=== PATIENT | female | born 1930 | race Caucasian/White ===

== ENCOUNTER 2018-04-14 12:53 | Emergency (ER) | payer MEDICARE ==
--- NOTE | 2018-04-14 14:03 | RAD ---
INDICATION: Right knee pain after a fall COMPARISON: None TECHNIQUE: 4 view radiograph of the right knee. FINDINGS: Extending medially at the superior margin of the medial femoral condyle slightly more proximally to the lateral cortical margin of the right supracondylar femur, there is a lucent line. This lucent line is seen on the lateral view knee radiograph just above the anterior portion of the femoral prosthesis. There is evidence of a healed fracture at the proximal right fibular metaphysis. The visualized bones are otherwise grossly intact. There is mild calcified atherosclerosis of the superficial femoral artery. IMPRESSION: Nondisplaced periprosthetic at the distal right femur just above the anterior portion of the femoral knee prosthesis.
[2018-04-14] MEDS ORDERED: Ibuprofen TAB* 600 MG PO ONE (15:57)
[2018-04-14 16:36] VITALS: BP 143/77
--- NOTE | 2018-04-17 10:44 | ED ---
Edward Roberto Angela, scribed for Johnson Bernard MD on 04/14/18 at 1309 . Lower Extremity - HPI Summary HPI Summary: This pt is an 87 y/o female presenting to [facility] via EMS c/o right knee pain s/p fall today. Pt reports she was walking down a sidewalk when she tripped over a portion that was raised. She does not know if she landed on her right knee. Denies head strike or LOC. Pt denies any other injuries, headache, abd pain, chest pain, neck pain, back pain. PMHx includes right knee replacement (about 3 years ago). Pt is unable to recall who did her knee replacement. - History of Current Complaint Chief Complaint: EDExtremityLower Stated Complaint: RT KNEE PAIN Time Seen by Provider: 04/14/18 13:01 Hx Obtained From: Patient Mechanism Of Injury: Fall From A Standing Position Onset of Pain: Immediate Onset/Duration: Minutes Severity Currently: Moderate Pain Intensity: 1 Pain Scale Used: 0-10 Numeric Timing: Constant, Lasting Days Location: Is Discrete @ - right knee Associated Signs And Symptoms: Positive: Knee Pain. Negative: Redness, Bruising , Weakness, Abdominal Pain Aggravating Factor(s): Movement Alleviating Factor(s): Rest Able to Bear Weight: No - Allergies/Home Medications Allergies/Adverse Reactions: Allergies Allergy/AdvReac Type Severity Reaction Status Date / Time No Known Allergies Allergy Verified 08/08/15 13:25 PMH/Surg Hx/FS Hx/Imm Hx Endocrine/Hematology History: Denies: Hx Diabetes Respiratory History: Reports: Hx Asthma Neurological History: Reports: Hx CVA - Surgical History Surgery Procedure, Year, and Place: TOTAL RT KNEE, TOTAL RT HIP Infectious Disease History: No Infectious Disease History: Denies: Traveled Outside the US in Last 30 Days - Family History Known Family History: Positive: Cardiac Disease - [place], Diabetes Family History: Cancer - Social History Alcohol Use: Rare Substance Use Type: Reports: None Smoking Status (MU): Never Smoked Tobacco Review of Systems Negative: Fever, Chills Eyes: Negative Negative: Chest Pain Negative: Shortness Of Breath Negative: Abdominal Pain Musculoskeletal: Other - right knee pain Negative: Other - neck pain, back pain Negative: Headache All Other Systems Reviewed And Are Negative: Yes Physical Exam - Summary Physical Exam Summary: VITAL SIGNS: Reviewed. GENERAL: Patient is a well-developed and nourished female who is lying comfortable in the stretcher. Patient is not in any acute respiratory distress. HEAD AND FACE: No signs of trauma. No ecchymosis, hematomas or skull depressions. No sinus tenderness. EYES: PERRLA, EOMI x 2, No injected conjunctiva, no nystagmus. EARS: Hearing grossly intact. Ear canals and tympanic membranes are within normal limits. MOUTH: Oropharynx within normal limits. NECK: Supple, trachea is midline, no adenopathy, no JVD, no carotid bruit, no c- spine tenderness, neck with full ROM. CHEST: Symmetric, no tenderness at palpation LUNGS: Clear to auscultation bilaterally. No wheezing or crackles. CVS: Regular rate and rhythm, S1 and S2 present, no murmurs or gallops appreciated. ABDOMEN: Soft, non-tender. No signs of distention. No rebound no guarding, and no masses palpated. Bowel sounds are normal. EXTREMITIES: no cyanosis or clubbing. RLE: Decreased ROM of right knee secondary to pain. No deformity. No ecchymosis. NEURO: Alert and oriented x 3. No acute neurological deficits. Speech is normal and follows commands. SKIN: Dry and warm. Abrasion on top of the right knee. Triage Information Reviewed: Yes Vital Signs On Initial Exam: Initial Vitals Temp Pulse Resp BP Pulse Ox 97.9 F 62 18 155/87 95 04/14/18 12:58 04/14/18 12:58 04/14/18 12:58 04/14/18 12:58 04/14/18 12:58 Vital Signs Reviewed: Yes Diagnostics - Vital Signs Vital Signs Temp Pulse Resp BP Pulse Ox 04/14/18 12:58 97.9 F 62 18 155/87 95 - Laboratory Lab Statement: Any lab studies that have been ordered have been reviewed, and results considered in the medical decision making process. - Radiology Right knee XR Xray Interpretation: Positive (See Comments) - IMPRESSION: Nondisplaced periprosthetic at the distal right femur just above the anterior portion of the femoral knee prosthesis. Dr. Bernadr has reviewed this radiology report. Radiology Interpretation Completed By: Radiologist Re-Evaluation - Re-Evaluation First Eval Re-Evaluation Time: 15:56 Comment: I reviewed the XR results with the pt. She will be discharged home. Lower Extremity Course/Dx - Course Assessment/Plan: Pt is an 87 y/o female, with hx of R knee replacement, who presents with right knee pain s/p fall today. Pt reports she was walking down a sidewalk when she tripped over a portion that was raised. She does not know if she landed on her right knee. Denies head strike or LOC. Right knee XR shows nondisplaced periprosthetic at the distal right femur just above the anterior portion of the femoral knee prosthesis. There is no fracture or dislocation on chest XR. Pt was given ibuprofen for the pain and she feels better. Pt was able to ambulate in the ED. Because of the slight swelling I decided to place pt on a knee immobilizer. She will be discharged home with follow up from orthopedics. I discussed all the findings and test results with the patient. All questions were answered to patient satisfaction. There were no further complaints or concerns. She is instructed to return to the ED for any worsening or new symptoms. Pt is hemodynamically stable, alert and oriented x3. - Diagnoses Provider Diagnoses: Knee pain Discharge - Sign-Out/Discharge Documenting (check all that apply): Discharge/Admit/Transfer - Discharge - Discharge Plan Condition: Stable Disposition: HOME Patient Education Materials: Knee Pain (ED) Referrals: Lj Adam MD [Medical Doctor] - 3 Days Ira Ortiz MD [Medical Doctor] - Additional Instructions: Please follow up with Dr. Adam, orthopedist. RETURN TO THE ED FOR ANY NEW OR WORSENING SYMPTOMS. The documentation as recorded by the Edward spain Angela accurately reflects the service I personally performed and the decisions made by , Johnson Bernard MD.
== END 2018-04-14 16:35 | disposition home or self-care (01) ==
LOC: ED 12:53
DX: M25.561 Pain in right knee (principal); W01.0XXA Fall on same level from slipping, tripping and stumbling without subsequent striking against object, initial encounter; Y93.01 Activity, walking, marching and hiking; Y92.480 Sidewalk as the place of occurrence of the external cause; Z96.651 Presence of right artificial knee joint; N39.0 Urinary tract infection, site not specified; R55 Syncope and collapse; Z79.82 Long term (current) use of aspirin
CPT/HCPCS: 99282; A9270-GY

== ENCOUNTER 2018-04-14 21:41 | Emergency (ER) | payer MEDICARE ==
[2018-04-14] MEDS ORDERED: NS 0.9% 1000 ML* 1,000 ML IV ONE (23:30)
[2018-04-15 00:16] LABS: ABS Basophils 0 10^3/ul (0-0.2); ABS Eosinophils 0.1 10^3/ul (0-0.6); ABS Lymphocytes 0.6 10^3/ul (1.0-4.8); ABS Monocytes 0.5 10^3/ul (0-0.8); ABS Neutrophils 6.4 10^3/ul (1.5-7.7); ABS Nucleated RBC 0 10^3/ul; Eosinophil % 1.9 % (0-6); Hematocrit 38 % (35-47); Hemoglobin 12.7 g/dl (12.0-16.0); Lymphocyte % 7.3 % (25-47); Mean Corpuscular HGB Conc 33 g/dl (31-36); Mean Corpuscular Hemoglobin 30 pg (27-31); Mean Corpuscular Volume 91 fL (80-97); Mean Platelet Volume 8.4 um3 (7.4-10.4); Nucleated Red Blood Cells % 0; Platelet Count 180 10^3/ul (150-450); Red Blood Count 4.18 10^6/ul (4.00-5.40); Red Cell Distribution Width 15 % (10.5-15); White Blood Count 7.7 10^3/ul (3.5-10.8)
[2018-04-15 00:32] LABS: INR 0.91 (0.77-1.02)
[2018-04-15 00:53] LABS: Urine Appearance Cloudy; Urine Blood Negative (Negative); Urine Color Yellow; Urine Ketones Negative (Negative); Urine Protein Negative (Negative); Urine Specific Gravity 1.015 (1.010-1.030); Urine Urobilinogen Negative (Negative)
[2018-04-15] MEDS ORDERED: Levofloxacin 500 MG IVPREMIX(* 500 MG/100 ML BAG IVPB ONE (01:06)
[2018-04-15] MEDS ORDERED: Levofloxacin TAB* 250 MG PO ONE (01:14)
--- NOTE | 2018-04-15 01:25 | ED ---
Mynor Roberto Gabriel, scribed for Anthony Osei MD on 04/14/18 at 2343 . Syncope/Near Syncope - HPI Summary HPI Summary: This patient is a 87 year old F BIBA to [facility] accompanied by her mother in law s /p near syncopal episode that occurred at 2100 tonight. The pt was having a BM when she became faint and diaphoretic. The daughter in law saw during the episode. She states the pt was responding but did not appear fully conscious. The patient rates the pain 3/10 in severity. Patient reports PALACIOS, inability to move legs, decreased liquid intake, and diaphoresis. The episode lasted about 20 minutes. Pt was seen earlier today for a fall w/ right knee injury. - History Of Current Complaint Chief Complaint: EDGeneral Time Seen by Provider: 04/14/18 23:10 Hx Obtained From: Patient, Family/Cable Testers Helper Onset/Duration: Still Present Timing: Constant Context: Witnessed Activity At Onset: At Rest Associated Head Trauma: No Alleviating Factor(s): Spontaneous Resolution Associated Signs And Symptoms: Diaphoresis - Allergies/Home Medications Allergies/Adverse Reactions: Allergies Allergy/AdvReac Type Severity Reaction Status Date / Time No Known Allergies Allergy Verified 08/08/15 13:25 Home Medications: Home Medications Ascorbic Acid TAB* [Vitamin C TAB*] 500 mg PO DAILY 04/14/18 [History Confirmed 04/14/18] Aspirin TAB* [Aspirin 325 MG TAB*] 325 mg PO QPM 04/14/18 [History Confirmed 10/20] Calcium Carbonate [Calcium] 500 mg PO QAM 04/14/18 [History Confirmed 04/14/18] Magnesium Oxide [Magnesium] 500 mg PO QPM 04/14/18 [History Confirmed 04/14/18] Methylsulfonylmethane [MSM] 1,000 mg PO DAILY 04/14/18 [History Confirmed ] [place]-3 Fatty Acids (Nf) [Fish Oil (NF)] 1,000 mg PO QAM 04/14/18 [History Confirmed 04/14/18] PMH/Surg Hx/FS Hx/Imm Hx History: Denies: Hx Benign Prostatic Hyperplasia, Hx Chronic Renal Failure Neurological History: Denies: Hx CVP Psychiatric History: Denies: Hx Attention Deficit Hyperactivity Disorder - Surgical History Surgery Procedure, Year, and Place: TOTAL RT KNEE, TOTAL RT HIP Infectious Disease History: No Infectious Disease History: Denies: Traveled Outside the [place] in Last 30 Days - Family History Known Family History: Negative: Respiratory Disease, Seizure Disorder, Blood Disorder - Social History Alcohol Use: Rare Substance Use Type: Reports: None Smoking Status (MU): Never Smoked Tobacco Review of Systems Positive: Skin Diaphoresis, Other - decreased liquid intake Positive: Other - inability to move legs Neurological: Negative - LOC Positive: Headache, Syncope - near All Other Systems Reviewed And Are Negative: Yes Physical Exam - Summary Physical Exam Summary: VITAL SIGNS: Reviewed. GENERAL: Patient is a well-developed and nourished female who is lying comfortable in the stretcher. Patient is not in any acute respiratory distress. HEAD AND FACE: No signs of trauma. No ecchymosis, hematomas or skull depressions. No sinus tenderness. EYES: PERRLA, EOMI x 2, No injected conjunctiva, no nystagmus. EARS: Hearing grossly intact. Ear canals and tympanic membranes are within normal limits. MOUTH: Oropharynx within normal limits. NECK: Supple, trachea is midline, no adenopathy, no JVD, no carotid bruit, no c- spine tenderness, neck with full ROM. CHEST: Symmetric, no tenderness at palpation LUNGS: Clear to auscultation bilaterally. No wheezing or crackles. CVS: Regular rate and rhythm, S1 and S2 present, no murmurs or gallops appreciated. ABDOMEN: Soft, non-tender. No signs of distention. No rebound no guarding, and no masses palpated. Bowel sounds are normal. EXTREMITIES: FROM in all major joints no cyanosis or clubbing. Bilateral trace edema NEURO: Alert and oriented x 3. No acute neurological deficits. Speech is normal and follows commands. SKIN: Dry and warm Triage Information Reviewed: Yes Vital Signs On Initial Exam: Initial Vitals Temp Pulse Resp BP Pulse Ox 97.4 F 56 17 150/66 98 04/14/18 22:03 04/14/18 22:03 04/14/18 22:03 04/14/18 22:03 04/14/18 22:03 Vital Signs Reviewed: Yes Diagnostics - Vital Signs Vital Signs Temp Pulse Resp BP Pulse Ox 04/14/18 23:15 57 16 138/71 97 04/14/18 22:03 97.4 F 56 17 150/66 98 - Laboratory Result Diagrams: 04/15/18 00:07 04/15/18 00:07 Lab Statement: Any lab studies that have been ordered have been reviewed, and results considered in the medical decision making process. - CT CT Head CT Interpretation Completed By: Radiologist - involutional changes. Chronic micro vascular changes in the cerebral white matter. 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 No obvious acute infarct. No hemorrhage. No mass. Osseous structures intact. ED physician has reviewed this radiology report. - EKG 23:32 Cardiac Rate: NL EKG Rhythm: Sinus Rhythm - at 55 BPM EKG Interpretation: Normal axis. Normal interval. No ischemic changes Re-Evaluation - Re-Evaluation First Eval Re-Evaluation Time: 01:16 Change: Improved Comment: The patient is feeling better and I informed her that she has a UTI. I informed her and the daughter that it could be vasovagal episode. They both feel comfortable going home and will follow up from her PCP. Course/Dx Assessment/Plan: This patient is a 87 year old F BIBA to [facility] accompanied by her mother in law s/p near syncopal episode that occurred at 2100 tonight. The pt was having a BM when she became faint and diaphoretic. The daughter in law saw during the episode. She states the pt was responding but did not appear fully conscious. The patient rates the pain 3/10 in severity. Patient reports PALACIOS , inability to move legs, decreased liquid intake, and diaphoresis. The episode lasted about 20 minutes. Pt was seen earlier today for a fall w/ right knee injury. An EKG reveals Normal axis. Normal interval. No ischemic changes. CT Head reveals, per radiologist, involutional changes. Chronic micro vascular changes in the cerebral white matter. 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 No obvious acute infarct. No hemorrhage. No mass. Osseous structures intact. Blood work obtained, UA positive for UTI. In the ED course the patient was given levaquin and IV fluids. The patient most likely had a vasovagal episode secondary to knee pain. Dx UTI and vasovagal. Patient will be discharged with prescription for levaquin and follow up from PCP. The patient is agreeable with this plan. - Diagnoses Provider Diagnoses: UTI (urinary tract infection), Vasovagal episode Discharge - Sign-Out/Discharge Documenting (check all that apply): Discharge/Admit/Transfer - Discharge Plan Condition: Stable Disposition: HOME Prescriptions: Levofloxacin TAB* [Levaquin TAB*] 250 mg PO DAILY #7 tab Patient Education Materials: Urinary Tract Infection in Women (DC) Referrals: Jeni Justice OFFICE CLERK [Primary Care Provider] - 3 Days Additional Instructions: RETURN TO THE ER FOR ANY NEW OR WORSENING SYMPTOMS The documentation as recorded by the Mynor spain Gabriel accurately reflects the service I personally performed and the decisions made by , Anthony Osei MD.
[2018-04-15 01:37] VITALS: BP 163/88
--- NOTE | 2018-04-15 07:53 | RAD ---
INDICATION: Dizziness COMPARISON: Most recent CT of the brain is dated December 17, 2015 TECHNIQUE: Contiguous axial sections of the brain were obtained from the skull base to the vertex without contrast. FINDINGS: The ventricles, cisterns and sulci exhibit stable age-related involutional changes.. There is mild to moderate periventricular and subcortical white matter hypoattenuation most consistent with chronic microvascular disease. There is a stable focal infarct at the right thalamus. Otherwise the tariq-white matter differentiation is adequately maintained and there is no sulcal effacement. No significant focal abnormality or mass effect is present. There is no evidence for intracranial hemorrhage. No significant focal osseous abnormality is present. The visualized portion of the paranasal sinuses appear clear. The mastoid air cells are well aerated bilaterally. IMPRESSION: Stable chronic findings as described above without CT evidence of acute intracranial abnormality.
== END 2018-04-15 01:36 | disposition home or self-care (01) ==
LOC: ED 21:41
DX: N39.0 Urinary tract infection, site not specified (principal); R55 Syncope and collapse; Z79.82 Long term (current) use of aspirin
CPT/HCPCS: 36415; 70450; 80053; 81003; 81015; 83605; 83735; 84443; 84484; 85025; 85610; 85730; 87086; 93005; 96360; 96374; 99282; 99284; A9270-GY

== ENCOUNTER 2018-05-25 11:34 | Observation (INO) | payer MEDICARE ==
[2018-05-25] MEDS ORDERED: NS 0.9% 1000 ML* 1,000 ML IV ONE (11:52)
--- NOTE | 2018-05-25 12:06 | ED ---
Neurological HPI - HPI Summary HPI Summary: This is judit Ghotra documenting for attending Johnson Bernard MD. This patient is an 87 year old F BIBA to ED with a chief complaint of LOC since [facility]. Per EMS patient was at physical therapy when she "passed out", she was drooling and unresponsive in her wheel chair for about a minute. When she came around, her speech was slurred and she was drowzy. Per staff her B/P was 80/40. The patient rates the pain 0/10 in severity. Symptoms aggravated by nothing. Symptoms alleviated by nothing. Patient denies palpitations, PALACIOS, SOB, and CP before and after passing out. - History of Current Complaint Chief Complaint: EDSyncope Stated Complaint: SYNCOPE Time Seen by Provider: 05/25/18 11:51 Hx Obtained From: Patient Onset/Duration: Sudden Onset, Started hours ago Timing: Sudden Onset Current Severity: None - 0/10 Pain Intensity: 0 Pain Scale Used: 0-10 Numeric Character: Other: - LOC Aggravating: Nothing Alleviating: Nothing Associated Signs and Symptoms: Positive: Loss of Consciousness - drooling and unresponsive during LOC, slurred speech and drowsiness s/p coming to, low BP; Patient denies palpitations, PALACIOS, SOB, and CP before and after passing out. - Additional Pertinent History Primary Care Physician: [id number] - Allergy/Home Medications Allergies/Adverse Reactions: Allergies Allergy/AdvReac Type Severity Reaction Status Date / Time No Known Allergies Allergy Verified 08/08/15 13:25 Home Medications: Home Medications Acetaminophen TAB* [Tylenol TAB*] 650 mg PO Q4H PRN 05/25/18 [History Confirmed 05/25/18] Ascorbic Acid TAB* [Vitamin C TAB*] 500 mg PO DAILY 05/25/18 [History Confirmed 05/25/18] Aspirin TAB* [Aspirin 325 MG TAB*] 325 mg PO DAILY 05/25/18 [History Confirmed 05/25/18] Calcium Carbonate TAB* 500 mg PO QPM 05/25/18 [History Confirmed 05/25/18] Docusate CAP* [Colace Cap*] 100 mg PO BID 05/25/18 [History Confirmed 05/25/18] Ferrous Sulfate TAB* 325 mg PO DAILY 05/25/18 [History Confirmed 05/25/18] Magnesium Oxide TAB* [MagOx 400 TAB*] 400 mg PO QPM 05/25/18 [History Confirmed 05/25/18] [place]-3 Fatty Acids (Nf) [Fish Oil (NF)] 1,000 mg PO DAILY 05/25/18 [History Confirmed 05/25/18] Warfarin TAB(*) [Coumadin TAB(*)] 3.5 mg PO QPM 05/25/18 [History Confirmed ] oxyCODONE TAB* [Roxycodone TAB 5 mg*] 5 mg PO Q4H PRN 05/25/18 [History Confirmed 05/25/18] PMH/Surg Hx/FS Hx/Imm Hx Respiratory History: Reports: Hx Asthma GI History: Reports: Hx Gastroesophageal Reflux Disease History: Denies: Hx Benign Prostatic Hyperplasia, Hx Chronic Renal Failure Musculoskeletal History: Reports: Hx Arthritis, Hx Orthopedic Injury - R knee, Other Musculoskeletal History - R TKR Sensory History: Reports: Hx Contacts or Glasses Denies: Hx Hearing Aid Opthamlomology History: Reports: Hx Contacts or Glasses Psychiatric History: Denies: Hx Attention Deficit Hyperactivity Disorder - Surgical History Surgery Procedure, Year, and Place: TOTAL RT KNEE, 2002, [facility]. TOTAL RT HIP, [place], [place], unsure of year Hx Anesthesia Reactions: No - Immunization History Immunizations Up to Date: Yes Infectious Disease History: No Infectious Disease History: Denies: Traveled Outside the US in Last 30 Days - Family History Known Family History: Negative: Respiratory Disease, Seizure Disorder, Blood Disorder - Social History Alcohol Use: None Substance Use Type: Reports: None Smoking Status (MU): Never Smoked Tobacco Review of Systems Positive: Other - low BP. Negative: Palpitations - denies palpitations before and after passing out, Chest Pain - denies CP before and after passing out Negative: Shortness Of Breath - denies SOB before and after passing out Neurological: Other - drooling and unresponsive during LOC, slurred speech and drowsiness s/p coming to Negative: Headache - denies PALACIOS before and after passing out All Other Systems Reviewed And Are Negative: Yes Physical Exam - Summary Physical Exam Summary: VITAL SIGNS: Reviewed. GENERAL: Patient is a well-developed and nourished FEMALE who is lying comfortable in the stretcher. Patient is not in any acute respiratory distress. HEAD AND FACE: No signs of trauma. No ecchymosis, hematomas or skull depressions. No sinus tenderness. EYES: PERRLA, EOMI x 2, No injected conjunctiva, no nystagmus. EARS: Hearing grossly intact. Ear canals and tympanic membranes are within normal limits. MOUTH: Oropharynx within normal limits. NECK: Supple, trachea is midline, no adenopathy, no JVD, no carotid bruit, no c- spine tenderness, neck with full ROM. CHEST: Symmetric, no tenderness at palpation LUNGS: Clear to auscultation bilaterally. No wheezing or crackles. CVS: Regular rate and rhythm, S1 and S2 present, no murmurs or gallops appreciated. ABDOMEN: Soft, non-tender. No signs of distention. No rebound no guarding, and no masses palpated. Bowel sounds are normal. EXTREMITIES: no edema, no cyanosis or clubbing. Boot on R leg. She has a knee replacement. NEURO: Alert and oriented x 3. No acute neurological deficits. Speech is normal and follows commands. SKIN: Dry and warm GCS 15 Triage Information Reviewed: Yes Vital Signs On Initial Exam: Initial Vitals Temp Pulse Resp BP Pulse Ox 98.4 F 68 17 147/74 95 05/25/18 11:38 05/25/18 11:38 05/25/18 11:38 05/25/18 11:38 05/25/18 11:38 Vital Signs Reviewed: Yes Diagnostics - Vital Signs Vital Signs Temp Pulse Resp BP Pulse Ox 05/25/18 11:38 98.4 F 68 17 147/74 95 - Laboratory Result Diagrams: 05/25/18 12:47 05/25/18 12:47 Lab Statement: Any lab studies that have been ordered have been reviewed, and results considered in the medical decision making process. - Radiology CXR Radiology Interpretation Completed By: Radiologist - NO ACTIVE CARDIOPULMONARY DISEASE. ED physician has reviewed this radiology report. - CT Brain CT CT Interpretation Completed By: Radiologist - 1. NO ACUTE INTRACRANIAL PATHOLOGY. 2. CHRONIC SMALL VESSEL ISCHEMIC CHANGE. 3. 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 ED physician has reviewed this radiology report. - EKG 1220 Cardiac Rate: NL - 67 BPM EKG Rhythm: Sinus Rhythm EKG Interpretation: no ST elevations, normal axis EKG Comparison: No Significant Change - Similar to EKG done on 04/18/18 Course/Dx - Course Assessment/Plan: Patient is an 87-year-old female who presents to the emergency department after [facility] with a chief complaint of a syncopal episode with positive loss of consciousness and hypotension. The patient doesnt remember any of the episodes but she denies any chest patients over the palpitations headache or dizziness before she had a syncopal episode or after she had a syncopal episode. She only remembers that she was sitting in the wheelchair waiting to go to rehabilitation. At this time the patient has no complaints. Test results without any significant abnormality. Head CT impression: No acute intracranial pathology. Chronic small vessel changes. There is pain intervally involvement of the right parietal encephalomalacia consistent with a remote infarct. Chest x-ray impression: No acute pathology. At this point I discussed the case with Dr. Mike from neurology and he will consult for the patient. I also discussed the case with Dr. Kang will be admitted the patient to his services for further workup and management. 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 At this point the patients hematocrit stable alert and oriented 3. - Differential Dx Differential Diagnoses Neuro: Positive: Other - syncope, evolutional CVA - Diagnoses Provider Diagnoses: Syncope, CVA (cerebral vascular accident) - Physician Notifications Discussed Care Of Patient With: Kush Mike Time Discussed With Above Provider: 13:45 Instructed by Provider To: Other - Consulted Dr. Mike about the patient's case and he said he will consult the patient in the ED. Consulted Dr. Kang at 1354 who accepts the patient for admission. Discharge - Sign-Out/Discharge Documenting (check all that apply): Patient Departure - Discharge Plan Condition: Stable Disposition: ADMITTED TO [facility]
--- NOTE | 2018-05-25 12:36 | RAD ---
HISTORY: Syncope COMPARISONS: April 14, 2013 TECHNIQUE: Multiple contiguous axial CT scans were obtained of the head without intravenous contrast. FINDINGS: HEMORRHAGE/INFARCT: There is no hemorrhage or acute infarct. MASSES/SHIFT: There is no mass or shift. EXTRA-AXIAL SPACES: There are no extra-axial fluid collections. SULCI AND VENTRICLES: There is diffuse and proportional enlargement of the sulci and ventricles. CEREBRUM: There is hypoattenuation of the periventricular and subcortical white matter. There is right parietal encephalomalacia consistent with remote infarct that has developed compared to the previous examination. BRAINSTEM: There are no focal parenchymal abnormalities. CEREBELLUM: There are no focal parenchymal abnormalities. VESSELS: The vessels are grossly normal. PARANASAL SINUSES: The paranasal sinuses are clear. ORBITS: The orbits are unremarkable. BONES AND SOFT TISSUE: No bone or soft tissue abnormalities are noted. OTHER: None IMPRESSION: 1. NO ACUTE INTRACRANIAL PATHOLOGY. 2. CHRONIC SMALL VESSEL ISCHEMIC CHANGE. 3. 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
--- NOTE | 2018-05-25 12:52 | RAD ---
HISTORY: Syncope COMPARISONS: April 18, 2018 VIEWS: 1: frontal portable view of the chest at 12:34 PM FINDINGS: LINES AND TUBES: None. CARDIOMEDIASTINAL SILHOUETTE: The aorta is tortuous. The cardiomediastinal silhouette is otherwise normal for portable technique. PLEURA: The costophrenic angles are sharp. No pleural abnormalities are noted. LUNG PARENCHYMA: The lungs are clear. ABDOMEN: The upper abdomen is clear. There is no subphrenic gas. BONES AND SOFT TISSUES: No bone or soft tissue abnormalities are noted. IMPRESSION: NO ACTIVE CARDIOPULMONARY DISEASE.
[2018-05-25 13:02] LABS: ABS Basophils 0 10^3/ul (0-0.2); ABS Eosinophils 0.4 10^3/ul (0-0.6); ABS Lymphocytes 0.7 10^3/ul (1.0-4.8); ABS Monocytes 0.8 10^3/ul (0-0.8); ABS Neutrophils 6.7 10^3/ul (1.5-7.7); ABS Nucleated RBC 0 10^3/ul; Eosinophil % 4.5 % (0-6); Hematocrit 37 % (35-47); Lymphocyte % 8.4 % (25-47); Mean Corpuscular HGB Conc 33 g/dl (31-36); Mean Corpuscular Hemoglobin 29 pg (27-31); Mean Corpuscular Volume 89 fL (80-97); Mean Platelet Volume 8.1 um3 (7.4-10.4); Nucleated Red Blood Cells % 0; Platelet Count 239 10^3/ul (150-450); Red Blood Count 4.11 10^6/ul (4.00-5.40); Red Cell Distribution Width 15 % (10.5-15); White Blood Count 8.6 10^3/ul (3.5-10.8)
[2018-05-25 13:23] LABS: EGFR Non-African American 61.6 (>60)
[2018-05-25 14:02] LABS: Urine Appearance Cloudy; Urine Blood Negative (Negative); Urine Color Yellow; Urine Ketones Negative (Negative); Urine Protein Negative (Negative); Urine Specific Gravity 1.016 (1.010-1.030); Urine Urobilinogen Negative (Negative)
[2018-05-25] MEDS ORDERED: oxyCODONE TAB* 5 MG TAB PO PRN (14:57)
[2018-05-25] MEDS ORDERED: Acetaminophen TAB* 325 MG PO PRN (14:57)
[2018-05-25] MEDS ORDERED: Warfarin TAB(*) 2.5 MG PO SCH (17:00)
[2018-05-25] MEDS ORDERED: Warfarin TAB(*) 1 MG PO SCH (17:00)
[2018-05-25 17:36] LABS: INR 3.07 (0.77-1.02)
[2018-05-25] MEDS ORDERED: Calcium Carbonate TAB* 1250 MG (CALCIUM 500 MG) PO SCH ×2 (18:00→19:00)
[2018-05-25] MEDS ORDERED: Warfarin TAB(*) 3 MG PO SCH ×2 (18:00→18:30)
[2018-05-25] MEDS: Magnesium Oxide TAB* 400 MG PO SCH (18:54)
[2018-05-25] MEDS: Calcium Carbonate TAB* 1250 MG (CALCIUM 500 MG) PO SCH (18:55)
[2018-05-25] MEDS ORDERED: Calcium Carbonate CHEW TAB* 500 MG (TUMS) PO SCH (19:00)
--- NOTE | 2018-05-25 19:41 | RAD ---
INDICATION: Slurred speech, TIA. COMPARISON: There are no prior studies available for comparison. TECHNIQUE: Multiple grayscale, color and Doppler tracings of the common, internal and external carotid and vertebral arteries were obtained. Stenosis estimations reflect velocity criteria that it been correlated to angiographic stenosis calculations based on the distal internal carotid diameter. RIGHT CAROTID: There is mild plaque within the right proximal internal carotid artery. The peak systolic velocity in the proximal right internal carotid artery is 48 cm/s and the maximum end-diastolic velocity is 17 cm/s. The peak systolic velocity in the distal right common carotid artery is 54 cm/s and the maximum end-diastolic velocity is 16 cm/s. The internal to common carotid artery ratio is 0.9. This would be consistent with a less than 50% stenosis. LEFT CAROTID: There is mild plaque within the left distal common and proximal internal carotid artery. The peak systolic velocity in the proximal left internal carotid artery is 42 cm/s and the maximum end-diastolic velocity is 12 cm/s. The peak systolic velocity in the distal left common carotid artery is 54 cm/s and the maximum end-diastolic velocity is 13 cm/s. The internal to common carotid artery ratio is 0.8. This would be consistent with a less than 50% stenosis. VERTEBRALS: There is antegrade flow in both vertebral arteries. IMPRESSION: THERE IS MILD PLAQUE PRESENT BILATERALLY WITHIN THE PROXIMAL INTERNAL CAROTID ARTERIES, NO HEMODYNAMICALLY SIGNIFICANT STENOSIS IS SEEN. CPT II Codes: 3100F
--- NOTE | 2018-05-25 20:41 | CONS ---
CONSULTATION REPORT: DATE OF CONSULT: 05/25/18 CONSULTING PHYSICIAN: Dr. Johnson Bernard. ADMITTING PHYSICIAN: Dr. Jason Kang. CHIEF COMPLAINT: Episode of slurred speech and drooling with right arm weakness. HISTORY OF PRESENT ILLNESS: Ms. Majo Pickett is an 87-year-old female with a past medical history of lacunar stroke in 1994 with right arm weakness with no residual deficits, total knee replacement in 2012, asthma, uterine fibroids, who was hospitalized recently in April 2018, status post mechanical fall causing right periprosthetic distal femoral fracture, status post ORIF. She was started on full dose Coumadin for DVT prophylaxis. Her INR was therapeutic at that time in April 2018. We do not have her current coagulation panel. The patient was at [facility] for subacute rehabilitation over the last 3 weeks. The history was mostly obtained by both Daphney, the patient's daughter, and the nurse caring for the patient at [facility]. The caregivers stated that she went to rehab early this morning and prior to going to rehab, she was in her normal state of health. This was around 8:00 this morning. During and after the rehab session, the patient became slightly less responsive, but was conscious. She has never lost consciousness. She was noticed by the bedside nurse that her right side was becoming weaker. She had right arm drift. She was drooling by the mouth. This lasted for approximately 2 minutes. The nurse noticed that she was looking odd. The patient was requesting Tylenol. She did not receive any oxycodone prior to this incident. Her blood pressure was checked and was difficult to obtain, but eventually, the nursing staff at [facility] got a blood pressure of 80/40 mmHg. After a few minutes, the patient got better. She was more coherent. When EMS arrived, the patient was able to move all extremities without any evidence of weakness. Again, the patient never lost consciousness, no falls were reported, and no focal weakness other than the right arm drift was noted. The patient denied any history of meningitis or encephalitis. She never had any seizures in the past. She has no family history of epilepsy. She has never had any similar episode in the past. A CT head was obtained in the ED, which showed an evolution of the encephalomalacia in the right parietal lobe. A comparative study from 04/14/18 , which showed a small-sized encephalomalacia in the right parietal lobe, but there has been an increase in size. There is no evidence of an acute infarction. The patient denied any headaches, visual disturbance, slurred speech, swallowing difficulty, or any impairment in her bowel or bladder functions. She has no pain at this time, but does have intermittent pain in the right knee area. Trish informed me that the patient is taking 325 mg aspirin 2 tablets a day at home. PAST MEDICAL HISTORY: As mentioned in the HPI, which includes a stroke in 1994 , total knee replacement in 2012, asthma, uterine fibroids. MEDICATIONS: Home medications: 1. Oxycodone 5 mg by mouth every 4 hours as needed. 2. Acetaminophen 650 mg p.o. every 4 hours as needed. 3. Coumadin 3.5 mg by mouth at night. 4. Docusate 100 mg by mouth twice daily. 5. [place]-3 fatty acids 1000 mg p.o. daily. 6. Magnesium oxide 400 mg by mouth at night. 7. Ferrous 325 mg by mouth daily. 8. Calcium carbonate 500 mg by mouth every evening. 9. Aspirin 325 mg by mouth daily. 10. Ascorbic acid 500 mg by mouth daily. ALLERGIES: No known drug allergies. REVIEW OF SYSTEMS: A 14-point review of systems was obtained and reviewed with the patient and otherwise negative except for what was mentioned in the HPI. PHYSICAL EXAM: Vital Signs: Temperature 98.4, heart rate of 64, respiratory rate of 17, oxygen saturation of 96%, blood pressure of 136/70. General: Thin - appearing, frail female, in no acute distress. She is cooperative. Head is atraumatic, normocephalic without any obvious abnormality. No lymphadenopathy was noted. Eyes: Conjunctivae/corneas were clear with no scleral icterus. Neck: Supple and symmetrical with no carotid bruits. Lungs: Clear to auscultation bilaterally with nonlabored breathing. Cardiovascular: Regular rhythm. Normal S1, S2. Radial pulses are palpable. Extremities: Normal range of motion of the upper extremities with no cyanosis. She has braces throughout the bilateral knee regions. Psych: Affect is broad and normal mood. She is easily to establish rapport. Skin: No skin lesions or lacerations. Neurological Examination: Awake, alert, oriented to person, place , time, and general circumstance. She does have some psychomotor slowing, but her memory seems to be intact. She is able to repeat 3 words after 2 minutes, spell the word "world" backwards, know the president and was quite quick in responding to simple calculation with subtracting serial 7s. Cranial Nerves: Normal confrontation bilaterally. Pupils are mid range and reactive to light. Normal consensual response. Extraocular muscles are intact. There is no ptosis. Sensation is intact on the forehead, cheeks, and jaw region bilaterally. There is no facial droop or facial asymmetry. She is able to hear throughout the history process. She has symmetrical palatal elevation. There was normal strength against shoulder shrug bilaterally. The tongue is symmetrical and midline with no atrophy or fasciculation. Motor Examination: She has no abnormal movements or pronator drift. She has normal bulk and tones throughout. She is frail and her strength overall was 4/5 and symmetrical in upper and lower extremities. She has restrictive range of motion of the knees due to recent surgery, but she had good ankle dorsiflexion strength at 5/5 bilaterally. Reflexes: Right/left, brachioradialis 1/1, biceps 1/1, triceps 1/1 , patella not assessed due to the knee braces. Ankles are trace bilaterally. She does have extensor plantar response bilaterally. Sensation is intact to light touch throughout. She did have mild tactile extension on the left, but this was inconsistent. Coordination slow, but no dysmetria to finger to nose. Gait was not assessed. DIAGNOSTIC STUDIES/LAB DATA: WBC 8.6, hemoglobin of 12, hematocrit of 37, platelet count of 239. Sodium of 137, potassium of 4.1, chloride of 103, creatinine of 0.87. Urinalysis was obtained, was unremarkable with no evidence of pyuria. TSH is 5.11. EKG, sinus rhythm is normal, V rate 60 to 99 with some atrial premature complexes. No atrial fibrillation. ASSESSMENT: 1. Mrs. Majo Pickett is an 87-year-old female with a history of status post distal femoral open reduction and internal fixation done in April and she was in rehab where she had an episode of drooling of the mouth and reduced alertness. There was concern that the patient may have had worsening of right-sided weakness. The patient is currently asymptomatic and appears to be at baseline. There was no evidence of syncope as the patient never lost consciousness during this episode. However, I am concerned that this event may have been related to symptomatic hypotension of unclear etiology at this point. She is not on any antihypertensive medication nor did she take any pain medications that may have triggered her hypotension. However, she was working with PT and I wonder if may be she had some orthostatic hypotension that may have been symptomatic due to poor cerebral perfusion in the setting of multifocal infarctions. 2. Multifocal infarction with the largest stroke being located at the right parietal lobe. There has been some evolution of the stroke. I wonder if the CAT scan that was obtained in April was early and showed a small stroke, but eventually the increase in size may have occurred days after that. There is no evidence of an acute stroke on the CAT scan or on my clinical assessment. She did not have complete stroke workup back in April 2018. She is currently taking Coumadin and full-dose aspirin for preventive therapy. She would not be a good candidate for statin therapy given her age, immobility, and recent surgeries. PLAN: I have ordered carotid ultrasound to evaluate for any internal carotid artery stenosis that may have also played a role in cerebral hypoperfusion in the setting of hypotension. I have also ordered an EEG to evaluate for any epileptiform abnormalities as she is at risk of having possible complex partial seizures given the multifocal infarctions. I do not suspect she had new stroke. I will hold off from ordering an MRI of the brain unless she develops recurrence of her symptoms in the absence of hypotension. She had an echo last month, hence I will not recommend repeating this study. She seems to be well hydrated as her electrolytes are all within normal range. Please obtain the INR and PTT. Please discontinue aspirin while she is on anticoagulation therapy with therapeutic INR between 2-3. If she is going to be off anticoagulation therapy, then restart aspirin at 325 mg daily. Please obtain orthostatic vitals. Neurology will continue to follow. I discussed the above recommendation with the patient, her daughter Trish, and Dr. Kang who is the admitting provider. TIME SPENT: I spent a total of 70 minutes, greater than 50% of that was spent directly reviewing the medical chart, obtaining history, examining the patient, education, counseling, and discussing the treatment plan with the primary team. [id number]/[facility]PS #: [id number] PATRIC
[2018-05-25] MEDS: Docusate CAP* 100 MG PO SCH (20:42)
--- NOTE | 2018-05-25 21:30 | HP ---
HISTORY AND PHYSICAL: DATE OF ADMISSION: 05/25/18 ADMITTING PROVIDER: Jason Kang MD PRIMARY CARE PROVIDER: Documented in the chart as Jeni Justice NP. The patient and family do not recognize that name, however. CHIEF COMPLAINT: Syncope at [facility] during physical therapy session. HISTORY OF PRESENT ILLNESS: Majo Pickett is an 87-year-old female with past medical history of Christian (refusing all blood products); recent periprosthetic right femur fracture, status post ORIF; CVA in 1994 with transient right arm weakness. She had been recovering at [facility] since her ORIF and this morning, she syncopized for about a minute in her wheelchair at the physical therapy session. She does not recall any of the details. Per nursing report, she was drooling and became unresponsive while sitting in the wheelchair for about 1 minute. Blood pressure was 80/40 at that time. She was drowsy. She was referred to the [facility] Room for further evaluation. She had a CT head, which showed evidence of chronic small vessel ischemic changes and evolution of involutional change related to her right parietal stroke. Dr. Mike of Neurology was consulted by Dr. Bernard of emergency room and the patient was referred to the hospitalist service for syncopal workup. Initial troponin was negative. She denies any chest pain, shortness of breath, or other symptoms at this time. She denies any palpitations. She is on Coumadin for DVT prophylaxis. INR is still pending. She has negative urinalysis and blood work otherwise unremarkable. BNP was 41. 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 MEDICATIONS: Include: 1. Oxycodone 5 mg p.o. q.4 hours p.r.n. 2. Acetaminophen 650 mg p.o. q.4 hours p.r.n. 3. Warfarin 3.5 mg p.o. q.p.m. 4. Docusate 100 mg p.o. b.i.d. 5. [place]-3 fatty acid 1000 mg p.o. daily. 6. Magnesium oxide 400 mg p.o. q.p.m. 7. Ferrous sulfate 325 mg p.o. daily. 8. Calcium carbonate 500 mg p.o. q.p.m. 9. Aspirin 325 mg p.o. daily. 10. Ascorbic acid 500 mg p.o. daily. ALLERGIES: No known drug allergies. FAMILY HISTORY: Mother with breast cancer at age 96, . Father at age 62 of heart attack. SOCIAL HISTORY: The patient is a never drinker, never smoker. No drug use. Former homemaker. She formerly filled out and presented MOLST saying DNR. She now wants to revise that and be a full code. She is accompanied by one of her meeks of tax attorney, daughter, Galina Perez, the other is Sirena Barrientos, ____ _ local and in the hospital premises. PHYSICAL EXAMINATION GENERAL APPEARANCE: The patient is in no acute distress, lying in the hospital bed. VITAL SIGNS: Temperature 98.4, heart rate 65, respiratory rate 17, oxygen saturation 97% on room air, blood pressure 169/71. HEENT: Normocephalic, atraumatic. Pupils are equal, round, and reactive to light. Extraocular motions are intact. No scleral icterus. Wearing glasses. NECK: Supple. No cervical lymphadenopathy. LUNGS: Clear to auscultation anteriorly bilaterally. CARDIOVASCULAR: Regular rate and rhythm. No murmurs, rubs, or gallops. She does have a systolic ejection murmur 3/6 at the left upper sternal border. ABDOMEN: Soft, nontender, nondistended. EXTREMITIES: Warm, well perfused. No peripheral edema. Right leg in brace. NEURO: Cranial nerves II through XII intact. Planning Management It Specialist strength 5/5. SKIN: No lesions. No rashes. DIAGNOSTIC STUDIES/LAB DATA: White count 8.6, hemoglobin 12.0, hematocrit 37, platelets 239. Sodium 137, potassium 4.1, chloride 103, carbon dioxide 25, BUN 25, creatinine 0.87, glucose 87, lactic acid 1.5, magnesium 2.5. BNP 41. TSH 5.11. Ammonia 34. Urinalysis within normal limits. Serum alcohol less than 10. Chest x-ray: No acute process. CT of the head demonstrates: 1. No acute intracranial pathology. 2. Chronic small vessel ischemic changes. 3. Interval involvement of the right parietal encephalomalacia consistent with remote infarct. EKG demonstrated normal sinus rhythm, 1 PAC, no ST elevations or depressions. ASSESSMENT AND PLAN: Majo Pickett is an 87-year-old female with history of recent right periprosthetic femur fracture, CVA in 1994, Christian, who reportedly had a syncopal event while in her wheelchair at [facility]. She drooled and her blood pressure was 80/40. We are still trying to get the full picture of what happened from the long term staff. She is denying any chest pain, shortness of breath, chest tightness. Getting troponin x3 to rule out a cardiac event. She just had an echocardiogram last admission 1 month ago with ejection fraction of 60% to 65%, some diastolic dysfunction, moderate tricuspid valve regurgitation, and moderate pulmonary hypertension. We appreciate the recommendations of Dr. Mike of Neurology. She is going to get an EEG in the morning. She is able to provide orthostatic blood pressures in at least a sitting position and it may be helpful. It is unclear if this is also related to medication with oxycodone that she is taking for p.r.n. pain. We will get an INR. Continue her Coumadin. Hold her aspirin for now. Does not need to be on both of these. Otherwise, continue her p.r.n. medications. She will be admitted under observation status. We will update her MOLST; she wants to be a full code now and her medical surrogates are Melody Perez and Sirnea Barrientos. She can eat a heart-healthy diet. [id number]/[facility] #: [id number] TONSIL HOSPITALHelen
[2018-05-26 06:30] LABS: ABS Basophils 0 10^3/ul (0-0.2); ABS Eosinophils 0.5 10^3/ul (0-0.6); ABS Lymphocytes 0.9 10^3/ul (1.0-4.8); ABS Monocytes 0.7 10^3/ul (0-0.8); ABS Neutrophils 3.9 10^3/ul (1.5-7.7); ABS Nucleated RBC 0 10^3/ul; Eosinophil % 8.8 % (0-6); Hematocrit 32 % (35-47); Hemoglobin 10.6 g/dl (12.0-16.0); Lymphocyte % 14.6 % (25-47); Mean Corpuscular HGB Conc 33 g/dl (31-36); Mean Corpuscular Hemoglobin 29 pg (27-31); Mean Corpuscular Volume 88 fL (80-97); Mean Platelet Volume 8.3 um3 (7.4-10.4); Nucleated Red Blood Cells % 0; Platelet Count 218 10^3/ul (150-450); Red Blood Count 3.66 10^6/ul (4.00-5.40); Red Cell Distribution Width 15 % (10.5-15)
[2018-05-26 06:36] LABS: INR 3.43 (0.77-1.02)
[2018-05-26 06:49] LABS: EGFR Non-African American 74.2 (>60)
[2018-05-26] MEDS: Ferrous Sulfate TAB* 325 MG PO SCH (07:56)
[2018-05-26] MEDS: Ascorbic Acid TAB* 500 MG PO SCH (07:56)
[2018-05-26] MEDS: Docusate CAP* 100 MG PO SCH ×2 (07:57→22:13)
[2018-05-26] MEDS ORDERED: Gadoteridol* (CONTRAST) 279.3 MG/ML 10 ML IV ONE (14:30)
--- NOTE | 2018-05-26 16:02 | RAD ---
HISTORY: Seizure protocol. Abnormal EEG on left frontotemp COMPARISONS: Head CT dated May 25, 2018 TECHNIQUE: The following sequences were obtained of the head: Sagittal T1-weighted images, axial T2-weighted images, axial FLAIR images, axial susceptibility weighted images, axial T1-weighted images, coronal T1, T2 and FLAIR images through the mesial temporal lobes. Additionally, axial diffusion-weighted images were obtained with calculated apparent diffusion coefficients. Additionally, sagittal and axial T1 weighted images with thin section coronal T1-weighted images through the mesial temporal lobes were obtained after contrast enhancement with a gadolinium-based intravenous contrast agent. FINDINGS: HEMORRHAGE/INFARCT: There is no hemorrhage or acute infarct. MASSES/SHIFT: There is no mass or shift. 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 SULCI AND VENTRICLES: There is diffuse and proportional enlargement of the sulci and ventricles. CEREBRUM: There is right parieto-occipital encephalomalacia. There is minimal [4 enhancement. The appearance suggests a subacute to chronic infarct. There is elevated T2/FLAIR signal in the periventricular and subcortical white matter. The mesial temporal lobes are symmetric. BRAINSTEM: There are no focal parenchymal abnormalities. CEREBELLUM: There are chronic lacunar infarcts of the cerebral hemispheres. The cerebellar tonsils are normal in size and position. SELLA: The sella is normal. PINEAL: The pineal region is clear. CP ANGLE/TEMPORAL BONES: The labyrinthine structures are grossly normal. VESSELS: Normal flow-voids are noted within the visualized vertebral vasculature. DIFFUSION ABNORMALITIES: There are no diffusion abnormalities. PARANASAL SINUSES/MASTOIDS: The paranasal sinuses are clear. There is a right mastoid effusion. ORBITS: The orbits are unremarkable. BONES AND SOFT TISSUE: No bone or soft tissue abnormalities are noted. OTHER: None IMPRESSION: 1. THERE IS RIGHT PARIETAL-OCCIPITAL ENCEPHALOMALACIA. THERE IS MINIMAL GYRIFORM ENHANCEMENT WHICH SUGGESTS A SUBACUTE TO CHRONIC INFARCT. RECOMMEND ATTENTION ON FOLLOW-UP IMAGING TO DOCUMENT RESOLUTION. THERE IS NO RESTRICTED DIFFUSION TO SUGGEST ACUTE INFARCT. 2. ELEVATED T2/FLAIR SIGNAL IN THE PERIVENTRICULAR AND SUBCORTICAL WHITE MATTER. WHILE NONSPECIFIC, THE APPEARANCE IS SUGGESTIVE OF CHRONIC SMALL VESSEL ISCHEMIA. THERE ARE ASSOCIATED CHRONIC LACUNAR INFARCTS OF THE INFERIOR CEREBRAL HEMISPHERES BILATERALLY. 3. DIFFUSE INVOLUTIONAL CHANGE. 4. THE MESIAL TEMPORAL DISEASE ARE SYMMETRIC. 5. RIGHT MASTOID EFFUSION.
--- NOTE | 2018-05-26 18:00 | PN ---
Subjective Date of Service: 05/26/18 Interval History: Patient seen and examined. Appropriate, calm, no acute confusion. However, I am unsure if patient truly understands her status. Explained new seizure disorder and possibility of a stroke at some point between her last hospitalization and this one but patient does not appear to have insight. Denies any headache, no SOB, no pain, no chest pain, no neuro complaints. Objective Active Medications: Acetaminophen (Tylenol Tab*) 650 mg PO Q4H PRN PRN Reason: FEVER/PAIN Ascorbic Acid (Vitamin C Tab*) 500 mg PO DAILY [facility] Last Admin: 05/26/18 07:56 Dose: 500 mg Calcium Carbonate (Calcium Carbonate Tab*) 1,250 mg PO QPM [facility] Last Admin: 05/25/18 18:55 Dose: 1,250 mg Docusate Sodium (Colace Cap*) 100 mg PO BID [facility] Last Admin: 05/26/18 07:57 Dose: 100 mg Ferrous Sulfate (Ferrous Sulfate Tab*) 325 mg PO DAILY [facility] Last Admin: 05/26/18 07:56 Dose: 325 mg Levetiracetam (Keppra Liq*) 250 mg PO BID [facility] Magnesium Oxide (Magox 400 Tab*) 400 mg PO QPM [facility] Last Admin: 05/25/18 18:54 Dose: 400 mg Metoprolol Tartrate (Lopressor Tab*) 12.5 mg PO Q12HR [facility] Oxycodone HCl (Roxycodone Tab*) 5 mg PO Q4H PRN PRN Reason: PAIN Pharmacy Profile Note (Coumadin Daily Reminder*) 1 note FOLLOW UP 1700 [facility] Oxygen Devices in Use Now: None Appearance: Alert, NAD Eyes: No Scleral Icterus, - - legally blind Ears/Nose/Mouth/Throat: NL Teeth, Lips, Gums, Mucous Membranes Moist Neck: NL Appearance and Movements; NL JVP, Trachea Midline Respiratory: Symmetrical Chest Expansion and Respiratory Effort, Clear to Auscultation Cardiovascular: NL Sounds; No Murmurs; No JVD, RRR, No Edema Abdominal: NL Sounds; No Tenderness; No Distention Skin: No Rash or Ulcers Neurological: Alert and Oriented x 3, NL Sensation, NL Muscle Strength and Tone Nutrition: Taking PO's Result Diagrams: 05/26/18 05:56 05/26/18 05:56 Microbiology and Other Data: Microbiology 05/25/18 15:00 Nasal Screen MRSA (PCR) - Final Nasal Mrsa Not Detected Diagnostic Imaging: Patient Name: SIMONE PICKETT Medical Record#: [id number] Ordering Physician: Kush Mike MD Acct.#: [id number] : 1930 Age: 87 Sex: F Location: [address] [place] [address]/TELEMETRY Exam Date: 05/26/18 1242 ADM Status: ADM Floyd Order Information: MRI BRAIN W/WO Accession Number: [id number] CPT: 72592 HISTORY: Seizure protocol. Abnormal EEG on left frontotemp COMPARISONS: Head CT dated May 25, 2018 TECHNIQUE: The following sequences were obtained of the head: Sagittal T1- weighted images, axial T2-weighted images, axial FLAIR images, axial susceptibility weighted images, axial T1-weighted images, coronal T1, T2 and FLAIR images through the mesial temporal lobes. Additionally, axial diffusion-weighted images were obtained with calculated apparent diffusion coefficients. Additionally, sagittal and axial T1 weighted images with thin section coronal T1 -weighted images through the mesial temporal lobes were obtained after contrast enhancement with a gadolinium-based intravenous contrast agent. FINDINGS: HEMORRHAGE/INFARCT: There is no hemorrhage or acute infarct. MASSES/SHIFT: There is no mass or shift. 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 SULCI AND VENTRICLES: There is diffuse and proportional enlargement of the sulci and ventricles. CEREBRUM: There is right parieto-occipital encephalomalacia. There is minimal [4 enhancement. The appearance suggests a subacute to chronic infarct. There is elevated T2/FLAIR signal in the periventricular and subcortical white matter. The mesial temporal lobes are symmetric. BRAINSTEM: There are no focal parenchymal abnormalities. CEREBELLUM: There are chronic lacunar infarcts of the cerebral hemispheres. The cerebellar tonsils are normal in size and position. SELLA: The sella is normal. PINEAL: The pineal region is clear. CP ANGLE/TEMPORAL BONES: The labyrinthine structures are grossly normal. VESSELS: Normal flow-voids are noted within the visualized vertebral vasculature. DIFFUSION ABNORMALITIES: There are no diffusion abnormalities. PARANASAL SINUSES/MASTOIDS: The paranasal sinuses are clear. There is a right mastoid effusion. ORBITS: The orbits are unremarkable. BONES AND SOFT TISSUE: No bone or soft tissue abnormalities are noted. OTHER: None IMPRESSION: 1. THERE IS RIGHT PARIETAL-OCCIPITAL ENCEPHALOMALACIA. THERE IS MINIMAL GYRIFORM ENHANCEMENT WHICH SUGGESTS A SUBACUTE TO CHRONIC INFARCT. RECOMMEND ATTENTION ON FOLLOW-UP IMAGING TO DOCUMENT RESOLUTION. THERE IS NO RESTRICTED DIFFUSION TO SUGGEST ACUTE INFARCT. 2. ELEVATED T2/FLAIR SIGNAL IN THE PERIVENTRICULAR AND SUBCORTICAL WHITE MATTER. WHILE NONSPECIFIC, THE APPEARANCE IS SUGGESTIVE OF CHRONIC SMALL VESSEL ISCHEMIA. THERE ARE ASSOCIATED CHRONIC LACUNAR INFARCTS OF THE INFERIOR CEREBRAL HEMISPHERES BILATERALLY. 3. DIFFUSE INVOLUTIONAL CHANGE. Patient Name: SIMONE PICKETT Medical Record#: [id number] Ordering Physician: Kush Mike MD Acct.#: [id number] : 1930 Age: 87 Sex: F Location: [address] [place] [address]/TELEMETRY Exam Date: 05/25/18 152 ADM Status: ADM Floyd Order Information: VL CAROTID BILATERAL Accession Number: [id number] CPT: 52480 INDICATION: Slurred speech, TIA. COMPARISON: There are no prior studies available for comparison. TECHNIQUE: Multiple grayscale, color and Doppler tracings of the common, internal and external carotid and vertebral arteries were obtained. Stenosis estimations reflect velocity criteria that it been correlated to angiographic stenosis calculations based on the distal internal carotid diameter. RIGHT CAROTID: There is mild plaque within the right proximal internal carotid artery. The peak systolic velocity in the proximal right internal carotid artery is 48 cm/s and the maximum end-diastolic velocity is 17 cm/s. The peak systolic velocity in the distal right common carotid artery is 54 cm/s and the maximum end-diastolic velocity is 16 cm/s. The internal to common carotid artery ratio is 0.9. This would be consistent with a less than 50% stenosis. LEFT CAROTID: There is mild plaque within the left distal common and proximal internal carotid artery. The peak systolic velocity in the proximal left internal carotid artery is 42 cm /s and the maximum end-diastolic velocity is 12 cm/s. The peak systolic velocity in the distal left common carotid artery is 54 cm/s and the maximum end-diastolic velocity is 13 cm/s. The internal to common carotid artery ratio is 0.8. This would be consistent with a less than 50% stenosis. VERTEBRALS: There is antegrade flow in both vertebral arteries. IMPRESSION: THERE IS MILD PLAQUE PRESENT BILATERALLY WITHIN THE PROXIMAL INTERNAL CAROTID ARTERIES, NO HEMODYNAMICALLY SIGNIFICANT STENOSIS IS SEEN. CPT II Codes: 3100F <Electronically signed by Dano Carlisle MD in OV> 05/25/181936 Dictated By: Dano Carlisle MD Dictated Date/Time: 05/25/181936 Transcribed Date/Time: 05/25/181931 Copy to: 1 of 2 Assess/Plan/Problems-Billing Assessment: This is an 87 year old female with recent periprosthetic fx with ORIF in April and history of CVA in 1994 that presented from [facility] after being found hypotensive and confused in her wheelchair with a right sided deficit as per staff. - Patient Problems (1) History of CVA (cerebrovascular accident) Code(s): Z86.73 - PRSNL HX OF TIA (TIA), AND CEREB INFRC W/O RESID DEFICITS SNOMED Code(s): 080515031 Comment: - Presented with hypotension and confusion - Given history of CVA in the past and concern for additional CVA at last admission, CT head and MRI and EEG were performed as per neurology - There are apparent epileptiform changes on EEG and increased encephalomalacia on MRI - May very well be likely that CT from last month which showed no acute CVA may have evolved and we are seeing the subacute changes now with new onset seizures (2) New onset seizure Code(s): R56.9 - UNSPECIFIED CONVULSIONS SNOMED Code(s): 71169672 Comment: - Low dose keppra started as per Dr. Mike - continue neuro checks Q4h, seizure precautions (3) Tachycardia Code(s): R00.0 - TACHYCARDIA, UNSPECIFIED SNOMED Code(s): 5408596 Comment: - Short, self limiting run of SVT earlier today - ECHO from last month reviewed, no further changes noted on tele and patient reports no symptoms - Given hypertension, will start very low dose BB and trial holter monitor for tomorrow (4) Hypertension Code(s): I10 - ESSENTIAL (PRIMARY) HYPERTENSION SNOMED Code(s): 38284246 Comment: - No additional hypotension noted and BP running high since admission - Given new neuro changes, will initiate low dose BB for BP control (5) Fracture of distal end of right femur Code(s): S72.401A - UNSP FRACTURE OF LOWER END OF RIGHT FEMUR, INIT FOR CLOS FX SNOMED Code(s): 261529703 Comment: - Surgery on 04/20/2018, progressing with rehab - Discontinue coumadin, as patient is >30 days post-op - Of note, no blood products per patient's rastafarian beliefs and high risk given supratherapeutic INR (6) DVT prophylaxis Current Visit: No Status: Acute Code(s): AVB3367 - SNOMED Code(s): 080506004 Comment: - Supratherapeutic INR, continue SCDs (7) Full code status Current Visit: No Status: Acute Code(s): Z78.9 - OTHER SPECIFIED HEALTH STATUS SNOMED Code(s): 286272001 Comment: - Healthcare proxy, Daphney Pickett, daughter in law informed of changes and plan of care Status and Disposition: Remain inpatient, will nahed KULKARNI back to [facility] tomorrow if stable.
[2018-05-26] MEDS: Magnesium Oxide TAB* 400 MG PO SCH (18:41)
[2018-05-26] MEDS: Calcium Carbonate TAB* 1250 MG (CALCIUM 500 MG) PO SCH (18:52)
[2018-05-26] MEDS: Metoprolol Tartrate TAB* 25 MG PO SCH (22:13)
[2018-05-26] MEDS: levETIRAcetam LIQ* 500 MG/5 ML UDC PO SCH (22:13)
--- NOTE | 2018-05-27 02:25 | EEG ---
ELECTROENCEPHALOGRAPHY: DATE OF SERVICE: 05/26/18 - ROOM #[id number] DATE READ: 05/26/18. ORDERED BY: Kush Mike MD. READ BY: Kush Mike MD. HISTORY: The patient is an 87-year-old female with a history of right parietal ischemic infarction who presented with an episode of altered sensorium and questionable right arm weakness. The EEG was requested to evaluate for epileptiform abnormalities or electrographic seizures. MEDICATIONS: 1. Colace. 2. Ferrous sulfate. 3. Coumadin. 4. Calcium. 5. Mag-Ox. 6. Tylenol. 7. Roxicodone. CLINICAL STATE: Awake and sleep. DESCRIPTION OF PROCEDURE: The waking background showed retained organization with discernable anterior-posterior voltage and frequency gradients. There was a posterior dominant rhythm of 9 Hz which was symmetrical and showed intact reactivity. There were occasional, left frontotemporal epileptiform discharges with a morphology of a sharp and slow-wave maximally seen at F7 with a field extending to Fp1 and T5. There was superimposed intermittent, medium amplitude, 3-5 Hz delta slowing in the left frontotemporal region. Attenuation of the occipital rhythm accompanied drowsiness. Vertex waves, K- complex, and sleep spindles were seen suggesting stage 2 sleep. Hyperventilation and photic stimulations were not performed. EKG normal sinus rhythm with a rate of 75 beats per minute. Throughout the recording there were no electrographic seizures. IMPRESSION: This is an abnormal awake and sleep EEG due to the presence of intermittent frontotemporal slowing with superimposed occasional left frontotemporal sharp and slow wave epileptiform discharges. These findings are suggestive of focal neuronal dysfunction in the frontotemporal region with an increase epileptogenic potentials emanating from the same region. Clinical correlation is recommended. However, given the patient's episode of confusion, I suspect that she may have had a complex partial seizure without secondary generalization. I will start the patient on AED therapy with low-dose Keppra 250 mg twice daily. I will also order an MRI of brain with and without contrast, seizure protocol to further evaluate the left frontotemporal abnormality. [id number]/[facility] #: [id number] [facility]
--- NOTE | 2018-05-27 03:32 | PN ---
NEUROLOGY PROGRESS REPORT: DATE OF VISIT: 05/26/18 PRIMARY PROVIDER: Jason Kang MD Neurology is following for the evaluation of transient episode of slurred speech and right arm weakness that have resolved. SUBJECTIVE: The patient is feeling well this morning. She is undergoing an EEG study. She denied any symptoms of slurred speech or focal weakness. She has not had any recurrence of episodes. She denied any pain. She is immobile. REVIEW OF SYSTEMS: She denied any chest pain, shortness of breath, or palpitation. MEDICATIONS: 1. Acetaminophen 650 mg p.o. every 4 hours as needed for fever or pain. 2. Ascorbic acid. 3. Calcium carbonate. 4. Docusate. 5. Ferrous sulfate. 6. Magnesium oxide 400 mg at night. 7. Oxycodone 5 mg by mouth every 4 hours as needed for pain. PHYSICAL EXAMINATION: Vital Signs: Temperature 98.3, heart rate of 65, respiratory rate of 16, oxygen saturation 96, blood pressure 137/52. General: Thin-appearing frail female in no acute distress. She is cooperative. Head is atraumatic and normocephalic without any obvious abnormality. Neck is supple and symmetrical with no carotid bruit. Skin: No skin lesions or laceration. Neurological Exam: She is awake and alert, oriented to person, place, time and general circumstances. She does have mild psychomotor slowing, but her memory seems to be intact. Pupils are mid range and reactive to light. Normal consensual response. Extraocular muscles are intact. There is no ptosis. Sensation is intact on the forehead, cheeks, and jaw region bilaterally. There is no facial droop or facial asymmetry. Tongue is symmetrical and midline. Motor Examination: She has no abnormal movement or pronator drift. She has normal bulk and tone throughout the upper extremity. Her strength due to her age and being frail is 4/5. Unable to assess the lower extremity due to restrictive range of motion due to arthritis in her knees status post surgery in the right lower extremity. The patient has good dorsiflexion strength of 5/ 5. Ankle are trace bilaterally. She does have extensive plantar response bilaterally. Sensation is intact to light touch throughout. She has mild tactile extension on the left, but inconsistent. She has no dysmetria. Gait was not assessed. ASSESSMENT AND PLAN: 1. Ms. Majo Pickett is an 87-year-old female with history of status post distal femoral open reduction and internal fixation done in April 2018 and she was in rehabilitation facility where she developed sudden onset of drooling of the mouth, reduced alertness, and questionable right arm weakness. She did have a drop in her blood pressure during that time. The patient quickly recovered. I do not suspect that the patient had a new stroke or transient ischemic attack. However, I am concerned that the patient may have had cerebral hypoperfusion due to hypotension. I am not quite sure why she had the episode of hypotension and she was not moving around or ambulating at this time. She had an ultrasound of the carotids that did not show any evidence of internal carotid stenosis. She is not on any antihypertensive medication. Her blood pressure has improved and her mentation is parallel to that improvement. We also need to rule out any complex partial seizures. An EEG has been ordered today. Depending on the results, further work-up will be recommended at that time. 2. Multifocal infarction with a large infarct in the right parietal lobe. Continue Coumadin. Discontinue aspirin to prevent any risk of bleeding. 3. Depending on the EEG results, the patient may be clear to go back to the rehabilitation center today. [id number]/[facility] #: [id number] MTDHelen
[2018-05-27 06:14] LABS: ABS Basophils 0 10^3/ul (0-0.2); ABS Eosinophils 0.6 10^3/ul (0-0.6); ABS Lymphocytes 1.2 10^3/ul (1.0-4.8); ABS Monocytes 0.7 10^3/ul (0-0.8); ABS Neutrophils 3.7 10^3/ul (1.5-7.7); ABS Nucleated RBC 0 10^3/ul; Hematocrit 32 % (35-47); Hemoglobin 10.6 g/dl (12.0-16.0); Lymphocyte % 19.5 % (25-47); Mean Corpuscular HGB Conc 34 g/dl (31-36); Mean Corpuscular Hemoglobin 29 pg (27-31); Mean Corpuscular Volume 87 fL (80-97); Mean Platelet Volume 8.4 um3 (7.4-10.4); Nucleated Red Blood Cells % 0.1; Platelet Count 217 10^3/ul (150-450); Red Blood Count 3.63 10^6/ul (4.00-5.40); Red Cell Distribution Width 15 % (10.5-15); White Blood Count 6.2 10^3/ul (3.5-10.8)
[2018-05-27 06:35] LABS: EGFR Non-African American 69.9 (>60)
[2018-05-27] MEDS: levETIRAcetam LIQ* 500 MG/5 ML UDC PO SCH (09:11)
[2018-05-27] MEDS: Ascorbic Acid TAB* 500 MG PO SCH (09:12)
[2018-05-27] MEDS: Docusate CAP* 100 MG PO SCH (09:12)
[2018-05-27] MEDS: Metoprolol Tartrate TAB* 25 MG PO SCH (09:13)
[2018-05-27] MEDS: Ferrous Sulfate TAB* 325 MG PO SCH (09:13)
[2018-05-27 12:07] VITALS: BP 126/49
--- NOTE | 2018-05-27 12:20 | DS ---
CC: Jeni Justice NP * DATE OF ADMISSION: 05/25/2018. DATE OF DISCHARGE: 05/27/2018. PRIMARY CARE PHYSICIAN: Jeni Justice NP. ATTENDING PHYSICIAN FOR THIS ADMISSION: Dr. Annetta Marshall. MY ATTENDING PHYSICIAN FOR TODAY: Dr. Annetta Marshall * (dictated by Carlene Vides NP). HOSPITAL COURSE: This is a very pleasant, 87-year-old female patient who is well- known to our service from a previous admission in April for a fall with a periprosthetic fracture of the right femur. The patient was convalescing and doing rehab at [facility] when she became unresponsive in her wheelchair and hypotensive with a systolic blood pressure in the 80s. At that time, it was also noted that she had a right-sided deficit and has been drooling and had some altered mental status. She was brought to the emergency department for evaluation for CVA. 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 The patient was seen by Dr. Mike of Neurology who reviewed the CAT scan from the emergency department which did show some increased encephalomalacia as compared to her scan in April. He then ordered an EEG and MRI to determine if the patient did in fact have an acute infarct based on her symptoms. She still maintains this right-sided deficit; however, it was difficult to determine how different that was because she had a right-sided deficit at baseline since 1994 with the original stroke. EEG did show some epileptiform changes as per Dr. Mike. MRI also confirmed that she has a subacute infarct. MRI showed a right parietal occipital encephalomalacia. There is minimal gyriform enhancement which suggests subacute to chronic infarct. Recommend attention on follow-up imaging to document resolution. There was no restricted diffusion to suggest an acute infarct. There was an elevated T2 FLAIR signal on the periventricular and subcortical white matter. While nonspecific, the appearance is suggestive of chronic small vessel ischemia. There are associated chronic lacunar infarcts in the inferior cerebral hemispheres bilaterally and also some diffuse involutional changes. As interpreted by Dr. Mike, the concern was that she did have some sort of evolving CVA at some point between her discharge to [facility] and then returning at this admission, which may have been the culprit for her new seizure activity. The patient was placed on Keppra. She did not get a loading dose. She is very low dose actually at 250 mg two times a day. Also, the patient had been on Coumadin for postoperative management for prevention of DVT. He was supratherapeutic with an INR of 3.64. Coumadin was held and I confirmed with Orthopedics that the patient, because she is more than 30 days postop, does not further require this level of anticoagulation. She was placed on 325 mg of aspirin daily as per Neurology. Also during her admission, she did have an episode of tachycardia and some hypertensive issues. The tachycardia was nonsustained. I evaluated the strip. We did not catch anything on the 12 lead EKG. It did appear to be narrow complex and was most likely senior patient account representative of an SVT that was self- limiting. The patient was placed on low dose beta frandy of 12.5 mg two times a day, short-acting Metoprolol. Her heart rate has been maintained in the 60s since then. Her blood pressure is stable with her systolics in the 120s to 130s. No hypotension or bradycardia noted. No further tachycardia or ectopy was noted on telemetry for the duration of her admission. I did contact [facility]; however, given that we did not actually capture the SVT again, we felt it would be prudent to place her on Holter monitoring for 24 hours. [facility] will come today, , to place the Holter monitor which will stay on the patient for 24 hours while she is returned to [facility]. If there are any new findings, the patient should follow- up with Cardiology. REVIEW OF SYSTEMS ON THE DAY OF DISCHARGE: The patient denies any fever, fatigue, or chills. No headache, no neurologic complaints, no shortness of breath, no abdominal pain, no nausea, no vomiting, no leg or hip pain. No further constitutional complaints. PHYSICAL EXAMINATION: General: The patient is well-appearing, more alert today. Vital Signs: Blood pressure 126/66, heart rate 64, respiratory rate 16 , O2 saturation 98 percent on room air with a temperature of 98.6. HEENT: The patient is atraumatic, normocephalic. PERRLA with nonicteric sclerae. She does wear glasses. She is legally blind. Oral mucosa is moist. Tongue is midline. Neck: Supple, nontender. No JVD noted. No carotid bruits auscultated. Cardiovascular: S1, S2 present. Rate and rhythm are regular. No gallops or rubs noted. She does have a grade 2/6 systolic murmur which is known. Lungs: Clear bilaterally to auscultation with no wheezing, rhonchi, or rales. Abdomen: Soft, nontender, nondistended. Positive bowel sounds all four quadrants. She is having normal bowel movements. Musculoskeletal: There is no clubbing and no cyanosis. She does not have edema to the right ankle. She has some bony changes secondary to fracture, but no new edema. She has +2 distal pulses palpable. She has a knee immobilizer in place on the right leg. I did not visualize her surgical wound. Per the record, the wound is approximated clean, dry and intact from her surgery. Neurologic: At this point , she does have mildly weaker cell liner on the right. 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 Psychiatric: She is cooperative and appropriate. LABORATORY DATA: WBC 6.2, RBC 3.63, hemoglobin 10.6, hematocrit 32, platelets 217; sodium 137, potassium 4.2, chloride 105, CO2 27, BUN 26, creatinine 0.78, GFR 69.9, glucose 94, calcium 8.8, magnesium 2.5, troponins were negative at 0.00 and 0.00, BNP 41, ammonia level 34, lactic acid 1.5, TSH 5.11. FURTHER IMAGIN. Ultrasound of the carotid artery showed mild plaque present bilaterally within the proximal internal carotid arteries. No hemodynamically significant stenosis is seen. 2. Chest x-ray shows no active cardiopulmonary disease. 3. Initial brain CAT scan on 05/25/2018 shows no acute intracranial pathology, chronic small vessel ischemic changes. There has been interval involvement of the right parietal encephalomalacia consistent with remote infarct. 4. MRI as stated above. 5. EKG on 05/26/2018 shows regular sinus rhythm with no significant changes from her previous. DISCHARGE DIAGNOSES: 1. History of CVA with encephalomalacia and now new onset seizures as a result. 2. New onset of seizures, now on low dose Keppra. 3. Brief tachycardia, self-limiting SVT now resolved. 4. Hypertension with new medications started with beta frandy. 5. Fracture of the distal femur, status post ORIF, now stable. 6. Code status: Full code. DISCHARGE MEDICATIONS: 1. Oxycodone 5 mg q.4 hours as needed. 2. Tylenol 650 mg q.4 hours as needed. 3. Docusate 100 mg two times a day. 4. Fish oil 1,000 mg daily. 5. MagOx 400 mg in the evening. 6. Ferrous Sulfate 325 mg daily. 7. Calcium Carbonate 500 mg daily. 8. Aspirin 325 mg daily. 9. Vitamin C 500 mg daily. 10. Keppra 250 mg two times a day. 11. Metoprolol Tartrate 12.5 mg q.12 hours. DISPOSITION: The patient will be discharged back to [facility] after her Holter monitor is placed. DIET: She can have a heart healthy diet as tolerated. ACTIVITY: She can continue with her physical therapy as tolerated. Her marleny have since been removed. She does not have any wound care needs at this time. She should remain in the knee immobilizer until seen by Orthopedics and continue on her physical rehab program as she had been on prior to her admission. The patient was discharged in stable condition. Case management will be coordinating her discharge transportation. This plan has been discussed with Daphney Pickett, the patient's [id number] and she is aware the patient is being discharged back to [facility] today. All questions were answered. Patient and her healthcare proxy state their understanding of the discharge instructions, medications and follow-ups. FOLLOW-UP: Because she is going to rehab, at some point she will need to follow -up with her primary care physician. This can be arranged by case management when she is deemed ready for discharge from [facility]. As well as Orthopedic follow-up which should continue as per previous plan. If there are new findings on her Holter monitor while she is at [facility], she should have a follow-up with cardiology, but that can be determined after the Holter monitor is removed. The patient was discharged in stable condition. Please note, I have spent an excess of 30 minutes on this discharge discussing care planning [id number] with the patient and interfacing with the interdisciplinary staff regarding her plan of care. CARLENE VIDES, PATTERN GENERATOR OPERATOR [id number]/[facility] #: [id number] [facility]X HOSPITALHelen
--- NOTE | 2018-05-28 05:05 | PN ---
CC: Gisel Black NP * PROGRESS NOTE: DATE OF SERVICE: 05/27/18 PRIMARY PROVIDER: Gisel Black NP CHIEF COMPLAINT: Feeling tired and fatigued this morning. SUBJECTIVE: The patient was seen and examined at the bedside this morning. She is calm and appropriate. She is complaining of excessive sleepiness. She slept well last night, but still feels tired. She denied any irritability or agitation. She received a low-dose levetiracetam, first dose was last night. She has not had any seizures since admission. REVIEW OF SYSTEMS: She denied any chest pain, shortness of breath, or palpitations. She denies any fevers or chills. She denies any new focal weakness or paresthesias. She denied any headache or visual disturbance. MEDICATIONS: 1. Acetaminophen 650 mg p.o. every 4 hours as needed for fever or pain. 2. Ascorbic acid 500 mg p.o. daily. 3. Calcium carbonate 1250 mg p.o. at night. 4. Docusate sodium 100 mg p.o. twice daily. 5. Ferrous sulfate 325 mg p.o. daily. 6. Levetiracetam 250 mg p.o. twice daily. 7. Magnesium oxide 400 mg p.o. at night. 8. Metoprolol 12.5 mg p.o. every 12 hours. 9. Oxycodone 500 mg p.o. every 4 hours as needed for pain. LABORATORY DATA: WBC 6.2, hemoglobin of 10.6, hematocrit of 32, platelets of 217. INR listed at 3.43. Sodium 137, potassium of 4.2, chloride of 105, BUN of 26. IMAGING STUDIES: The patient had an EEG on 05/26/18 that was abnormal and showed evidence of intermittent frontotemporal slowing, which occasional left frontotemporal sharp and slow wave epileptiform discharges. These findings are suggestive of focal neuronal dysfunction in the frontotemporal region with an increased epileptogenic potential emanating from the same region. The patient was started on levetiracetam yesterday, 250 mg twice daily. She had an MRI of the brain completed on 05/26/18, that showed right parietooccipital encephalomalacia. There is minimal gyriform enhancement that suggest a subacute to chronic infarct. There is no restricted effusion to suggest acute infarction. There is elevated T2/FLAIR signal on the paraventricular subcortical white matter suggesting chronic small vessel ischemia. There are associated chronic lacunar infarctions in the inferior cerebral hemisphere bilaterally. PHYSICAL EXAMINATION: Vital Signs: Temperature of 98.6, the patient had temperature of 101 last night that has resolved. Pulse rate of 64, respiratory rate of 16, oxygen saturation of 98% on room air, and blood pressure of 126/66. General: Thin-appearing frail female in no acute distress. She is cooperative. Head is atraumatic and normocephalic without any obvious abnormality. Neck is supple and symmetrical with no carotid bruit. Skin: No skin lesions or lacerations. Neurological examination: She is awake, alert, and oriented to person, place, and time and to circumstances. She does appear slightly fatigued and has mild psychomotor slowing, but her memory seems to be intact. Pupils are mid range and reactive to light. Normal consensual response. Extraocular muscles are intact. There is no ptosis. Sensation is intact on the forehead, cheeks, and jaw region bilaterally. There is no facial droop or facial asymmetry. Tongue is symmetrical and midline. Motor Examination: She has no abnormal movements or pronator drift. She has normal bulk and tone throughout the upper extremities bilaterally, but given her age and being frail, it was graded 4/5. She has slight weakness on the right upper extremity. She is unable to assess lower extremity due to restricted range of motion due to arthritis in the knees and status post surgery in the right lower extremity. The patient had good dorsiflexion strength of 5/5 bilaterally. Reflexes 1+ throughout with ankle or trace bilaterally. She has bilateral extensor plantar responses. Sensation intact to light touch throughout. She has no dysmetria. Gait was not assessed as the patient is bedridden at this time. ASSESSMENT AND RECOMMENDATIONS: 1. Ms. Majo Pickett is an 87-year-old female with history of status post right distal femoral open reduction internal fixation in April 2018, multiple lacunar infarcts and a large right parietal infarct in April 2018. The patient presented to [facility] for further evaluation of sudden onset of drooling, reduced alertness, and a questionable right arm weakness. Her workup thus far has revealed abnormal EEG with epileptiform discharges emanating from the left frontotemporal region as well as gyral enhancement of the right parietal region suggesting subacute-chronic infarction on MRI. 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 She is complaining of fatigue this morning, which I suspect could be related to the first dose of levetiracetam last evening. She has not had any of those episodes since admission. We will arrange a followup with Dr. Carl Coyle in 3-4 weeks. She should have a repeat MRI of the brain without contrast in 3 months to make sure the gyral enhancement resolves. Seizure precautions were discussed with the patient. The patient does not drive. 2. Multifocal infarction with larger infarct in the right parietal lobe. This is chronic. She should continue Coumadin daily. Discontinue aspirin due to the increased risk of bleeding. 3. The patient was febrile last evening. She denied any symptoms of dysuria, shortness of breath, or rhinorrhea. Defer to the primary team. TIME SPENT: I spent a total of 25 minutes discussing the case with the patient as well as reviewing the electronic medical record and examining the patient. [id number]/[facility] #: [id number] MTDD
== END 2018-05-27 14:00 ==
LOC: ED 11:34 → MEDTELE 15:01
PROVIDERS: ADMIT Internal Medicine; ATTEND Internal Medicine
DX: I69.398 Other sequelae of cerebral infarction (principal); G93.49 Other encephalopathy; R56.9 Unspecified convulsions; R00.0 Tachycardia, unspecified; I10 Essential (primary) hypertension; S72.401D Unspecified fracture of lower end of right femur, subsequent encounter for closed fracture with routine healing; Z96.651 Presence of right artificial knee joint; Z79.82 Long term (current) use of aspirin; Z79.899 Other long term (current) drug therapy; Z87.891 Personal history of nicotine dependence; Z79.01 Long term (current) use of anticoagulants; K21.9 Gastro-esophageal reflux disease without esophagitis; M19.90 Unspecified osteoarthritis, unspecified site
CPT/HCPCS: 36415; 70450; 70553; 71045; 80048; 80053; 80320; 81003; 82140; 82550; 83605; 83735; 83880; 84443; 84484; 85025; 85610; 87641; 93005; 93225; 93226; 93880; 95819; 99283; A9270-GY; A9579; G0378; G0480

== ENCOUNTER 2018-10-21 03:58 | Inpatient (IN) | payer MEDICARE ==
[2018-10-21] MEDS ORDERED: NS 0.9% 1000 ML* 1,000 ML IV ONE ×4 (04:06→18:30)
[2018-10-21] MEDS ORDERED: Acetaminophen TAB* 325 MG PO ONE (04:08)
--- NOTE | 2018-10-21 04:12 | ED ---
Adult Trauma - HPI Summary HPI Summary: This patient is an 87 year old F brought in by ambulance to [facility] with a chief complaint of a fall since 03:00 today. Patient was found face down in her own vomit with an altered mental status at [facility], where she lives. She does not remember falling. She last had a seizure a long time ago. The patient rates the pain 5/10 in severity. Patient reports skin tears on left hand and right knee pain. Patient denies hip pain, UE pain, CP, neck pain, and abdominal pain. - History of Current Complaint Stated Complaint: GENERAL ILLNESS Time Seen by Provider: 10/21/18 04:00 Hx Obtained From: Patient, EMS Mechanism of Injury: Fall Loss of Consciousness: unsure Onset/Duration: Started Hours Ago - 03:00 today, Still Present Onset of Pain: Immediate, Post Accident Current Severity: Moderate Pain Intensity: 5 Pain Scale Used: 0-10 Numeric Location: Head - Face, Extremities - Left hand, left knee Associated Signs & Symptoms: Positive: Nausea/Vomiting, Other: - Patient reports skin tears on left hand and right knee pain. Patient denies hip pain, UE pain, neck pain, and abdominal pain.. Negative: Chest Pain - Additional Pertinent History Primary Care Physician: [id number] - Allergy/Home Medications Allergies/Adverse Reactions: Allergies Allergy/AdvReac Type Severity Reaction Status Date / Time No Known Allergies Allergy Verified 08/08/15 13:25 Home Medications: Home Medications Glucosamine/Methylsulfonylmeth [MSM-Glucosamine 250-250 mg Cap] 1 cap PO DAILY 10/21/18 [History Confirmed 10/21/18] Triamcinolone 0.1% CREAM(NF) [Kenalog Cream 0.1%(NF)] 1 applic TOPICAL BID 10/21 [History Confirmed 10/21/18] hydrOXYzine HCL TAB* [Atarax 25 MG TAB*] 25 mg PO TID PRN 10/21/18 [History Confirmed 10/21/18] lamoTRIgine [Lamotrigine] 50 mg PO BID 10/21/18 [History Confirmed 10/21/18] PMH/Surg Hx/FS Hx/Imm Hx Endocrine/Hematology History: Denies: Hx Diabetes Cardiovascular History: Denies: Hx Hypertension, Hx Pacemaker/ICD Respiratory History: Reports: Hx Asthma GI History: Reports: Hx Gastroesophageal Reflux Disease History: Denies: Hx Benign Prostatic Hyperplasia, Hx Chronic Renal Failure, Hx Dialysis, Hx Renal Disease Musculoskeletal History: Reports: Hx Arthritis, Hx Orthopedic Injury - R knee, Other Musculoskeletal History - R TKR Sensory History: Reports: Hx Contacts or Glasses Denies: Hx Hearing Aid Opthamlomology History: Reports: Hx Contacts or Glasses Psychiatric History: Denies: Hx Attention Deficit Hyperactivity Disorder, Hx Panic Disorder - Surgical History Surgery Procedure, Year, and Place: TOTAL RT KNEE, 2002, [facility]. TOTAL RT HIP, [place], [place], unsure of year. RT FEMUR ORIF APRIL 2018. HYSTERECTOMY Hx Anesthesia Reactions: No - Family History Known Family History: Negative: Respiratory Disease, Seizure Disorder, Blood Disorder - Social History Occupation: Retired Lives: Assisted Living Alcohol Use: None Substance Use Type: Reports: None Smoking Status (MU): Never Smoked Tobacco Review of Systems Negative: Other - Neck pain Negative: Chest Pain Positive: Vomiting. Negative: Abdominal Pain Positive: Other - Right knee pain. Denies hip pain and upper extremity pain. Positive: Other - Skin tears on left hand Positive: Syncope All Other Systems Reviewed And Are Negative: Yes Physical Exam - Summary Physical Exam Summary: Appearance: Well appearing, no pain distress Skin: Skin tear 3cm in lengthon the dorsal ulnar surface of the left hand. 3 cm skin tear on left elbow Head/face: Abrasion to left zygomatic. Eyes: EOMI, SP ENT: mucous membranes moist Neck: supple, non-tender Respiratory: Lungs diminished, breath sounds present Cardiovascular: RRR, pulses symmetrical Abdomen: non-tender, soft Bowel Sounds: present Musculoskeletal: Arthritic changes in left knee. Chronic deformity in left knee. Surgical scar in right knee. GCS: 15 Neuro: normal, sensory motor intact, A&Ox3 Triage Information Reviewed: Yes Vital Signs On Initial Exam: Initial Vitals Temp Pulse Resp BP Pulse Ox 100.5 F 96 20 130/95 97 10/21/18 04:03 10/21/18 04:03 10/21/18 04:03 10/21/18 04:03 10/21/18 04:03 Vital Signs Reviewed: Yes Procedures - Laceration/Wound Repair Left dorsal hand Location: upper extremity - Left dorsal hand Length, Depth and Shape: 3 cm length Laceration/Wound Explored: clean - with saline and dried Closure: SteriStrips - and Dermabond Left elbow Location: upper extremity - Left elbow Length, Depth and Shape: 3 cm length Laceration/Wound Explored: clean - with saline and dried Closure: SteriStrips - and Tegaderm. Wrapped gauze and coban. Diagnostics - Laboratory Result Diagrams: 10/21/18 04:43 10/21/18 04:43 Lab Statement: Any lab studies that have been ordered have been reviewed, and results considered in the medical decision making process. - Radiology Chest X-Ray Radiology Interpretation Completed By: ED Physician Summary of Radiographic Findings: 04:07. No acute findings. Pending official report. Left Hand X-Ray Radiology Interpretation Completed By: ED Physician Summary of Radiographic Findings: 04:08. Degenerative changes, no fracture. Pending official report. Left Hip/Pelvis X-Ray Radiology Interpretation Completed By: ED Physician Summary of Radiographic Findings: 04:08. Right hip replacement, degenerative, questionable old right pubic ramus fracture, no left fracture Left Knee X-Ray Radiology Interpretation Completed By: ED Physician Summary of Radiographic Findings: 04:08. Severe degenerative change to the knee , no acute fracture. Pending official report. - CT Brain CT CT Interpretation Completed By: Radiologist Summary of CT Findings: 06:06. No acute findings. Study is degraded by motion artifact. ED Physician has reviewed this imaging report. Adult Trauma Course/Dx - Course Course Of Treatment: Nurse's notes reviewed. Patient presents after likely seizure at the skilled nursing. History of similar in the past. It seems she is been some time on the ground as evidenced by almost a pressure sore on her left zygoma as well as dried skin tears. CPK is not elevated but she has grossly elevated lactic acid. Her abdomen is soft and nontender. She had complained only of pain in her left knee which is better now. Temperature is normal after being elevated on arrival. LFTs are elevated mildly but there is no pain in the right upper quadrant. Bedside ultrasound was performed by me and there is calcification of the gallbladder. I have discussed this with the hospitalist. Patient received 2 L of IV fluids and blood pressures remained around 100 systolic. There is worsening of renal function as well. Urinalysis returned after time of disposition. Urine appears infected. IV Rocephin given. - Diagnoses Differential Diagnosis/HQI/PQRI: Positive: Abrasion(s), Contusion(s), Fracture, Hematoma(s), Other - Seizure, UTI, pneumonia, sepsis Provider Diagnoses: Seizure, Fall, Multiple contusions, Multiple skin tears, Lactic acidosis, Acute renal failure - Physician Notifications Discussed Care Of Patient With: Noemi Ramachandran - Hospitalist Time Discussed With Above Provider: 05:54 Instructed by Provider To: Admit As Inpatient - Critical Care Time Critical Care Time: 30-74 min - CCT is EXCLUSIVE of separately billable procedures. Discharge - Sign-Out/Discharge Documenting (check all that apply): Patient Departure - Admit - Discharge Plan Condition: Critical Disposition: ADMITTED TO [facility] Referrals: Jeni Justice ENGINEERING DEPARTMENT CHAIR [Primary Care Provider] - - Billing Disposition and Condition Condition: CRITICAL Disposition: Admitted to [facility] - Attestation Statements Document Initiated by Jese: Yes Documenting Scribe: Tanmay Courtney Provider For Whom Scribe is Documenting (Include Credential): Chet Flores MD Scribe Attestation: Tanmay Roberto, scribed for Chet Flores MD on 10/21/18 at 0628. Scribe Documentation Reviewed: Yes Provider Attestation: The documentation as recorded by the Tanmay spain accurately reflects the service I personally performed and the decisions made by , Chet Flores MD Status of Scribe Document: Viewed
[2018-10-21 04:55] LABS: INR 0.98 (0.77-1.02)
[2018-10-21 04:58] LABS: ABS Basophils 0 10^3/ul (0-0.2); ABS Eosinophils 0 10^3/ul (0-0.6); ABS Lymphocytes 0.1 10^3/ul (1.0-4.8); ABS Monocytes 0.1 10^3/ul (0-0.8); ABS Neutrophils 4.4 10^3/ul (1.5-7.7); ABS Nucleated RBC 0 10^3/ul; Eosinophil % 0.5 %; Hematocrit 42 % (35-47); Hemoglobin 13.8 g/dl (12.0-16.0); Lymphocyte % 2.4 %; Mean Corpuscular HGB Conc 33 g/dl (31-36); Mean Corpuscular Hemoglobin 29 pg (27-31); Mean Corpuscular Volume 88 fL (80-97); Mean Platelet Volume 8.4 fL (7.4-10.4); Nucleated Red Blood Cells % 0.2; Platelet Count 105 10^3/ul (150-450); Red Blood Count 4.76 10^6/ul (4.00-5.40); Red Cell Distribution Width 17 % (10.5-15); White Blood Count 4.6 10^3/ul (3.5-10.8)
--- OUTSIDE RECORDS SUMMARY | 2018-10-21 04:58 | XMS REPORT | Continuity of Care Document ---
:1930 External Reference #:[id number] Author Name Valerie Sharp Care Team Providers Name Role Phone Patient's Choice Primary Care Physician Unavailable Payers Type Date Identification Numbers Payment Provider Subscriber Policy Number: [id number] Medicare Majo Pickett PayID: [id number] [address] [place] [address] Policy Number: [id number] [facility] Majo Pickett PayID: [id number] [address] [place] [address] Advance Directives Description No Information Available Problems Date Description Provider Status Onset: 04/19/2018 Closed supracondylar fracture of Sebastian Beasley M.D. Active femur Onset: 04/18/2018 History of cerebrovascular Sydney Castillo M.D. 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 Family History Date Family Member(s) Problem(s) Comments General Diabetes General Heart Disease General Cancer General Alzheimer's Disease Social History Type Date Description Comments Sex Unknown Lives With Alone Occupation Retired ETOH Use Denies alcohol use nothing to drink for past nine years Tobacco Use Start: Unknown Patient has never smoked Smoking Status Reviewed: 09/28/18 Patient has never smoked Exercise Type/Frequency Does not exercise Allergies, Adverse Reactions, Alerts Description No Known Drug Allergies Medications Medication Date Status Form Strength Qnty SIG Indications Ordering Provider Lamotrigine 09/28/ Active Tablets 25mg 120ta 1 po qhs for G40.209 Jamarcus Meier 2017 bs 1 wk then 1 [place], bid for 1 wk M.D. then 2 bid Multivitamin / Active Tablets 1 by mouth Unknown Adult 0000 every day Aspirin / Active Tablets 325mg take 1 by Unknown 0000 mouth daily Calcium / Active Chewtabs 500mg 1 tab by Unknown Carbonate 0000 mouth in PM Antacid for indigestion Colace / Active Capsules 100mg 1 tab by Unknown 0000 mouth twice daily Ferrousul / Active Tablets 325(65Fe) 1 by mouth Unknown 0000 mg once a day Hydroxyzine HCL / Active Tablets 25mg 1 tablets by Unknown 0000 mouth every 8 hours as needed for itching Keppra / Active Solution 100mg/ml give 2.5 Unknown 0000 milliliters twice a day Lopressor / Active Tablets 25mg take half a Unknown 0000 tab (12.5mg )by mouth twice a day Magnesium Oxide / Active Capsules 400mg 1 by mouth Unknown -MG Supplement 0000 every evening MSM-Glucosamine / Active Capsules 250-250mg 1 cap daily Unknown 0000 [place] 3 / Active Capsules 1000mg 1 by mouth Unknown 0000 once a day Oxycodone HCL / Active Capsules 5mg 1 tab by Unknown 0000 mouth every 4 hours as needed pain Triamcinolone / Active Cream 0.1% apply thin Unknown Acetonide 0000 film to affected area at bedtime Tylenol / Active Capsules 325mg 2 tablets Unknown 0000 every 4 hours as needed for pain or fever Vitamin C / Active Tablets 1 by mouth Unknown 0000 daily MSM-Glucosamine 00/ Hx Capsules 250-250mg daily Unknown 0000 - 2017 Immunizations Description No Information Available Vital Signs Date Vital Result Comment 09/28/2018 3:57pm Height 59 inches 4'11" Weight 105.00 lb Heart Rate 64 /min BP Systolic Sitting 128 mmHg BP Diastolic Sitting 80 mmHg Respiratory Rate 16 /min BMI (Body Mass Index) 21.2 kg/m2 09/03/2018 12:16pm Body Temperature 96.8 F 08/26/2018 10:00am Height 59 inches 4'11" Weight 109.00 lb BP Systolic 128 mmHg BP Diastolic 70 mmHg Respiratory Rate 20 /min Pain Level 0 BMI (Body Mass Index) 22.0 kg/m2 08/10/2018 11:20am Heart Rate 78 /min BP Systolic 124 mmHg BP Diastolic 72 mmHg Respiratory Rate 18 /min Body Temperature 96.0 F O2 % BldC Oximetry 96 % 07/22/2018 2:24pm Height 59 inches 4'11" Weight 109.00 lb BP Systolic 110 mmHg BP Diastolic 60 mmHg Respiratory Rate 20 /min Pain Level 0 BMI (Body Mass Index) 22.0 kg/m2 06/10/2018 10:44am Height 59 inches 4'11" Weight 109.00 lb Heart Rate 70 /min BP Systolic 126 mmHg BP Diastolic 70 mmHg Respiratory Rate 12 /min Pain Level 0 BMI (Body Mass Index) 22.0 kg/m2 12/08/2017 1:49pm Height 59 inches 4'11" BP Systolic 140 mmHg BP Diastolic 74 mmHg Respiratory Rate 20 /min Body Temperature 98.1 F Pain Level 0 Results Description No Information Available Procedures Date Code Description Status 05/28/2018 01766 Holter Monitor Review (24 hr)dr review & interp only Completed 05/26/2018 90319 EEG Recording Awake & Asleep Completed 04/20/2018 20007 ECHO Transthorasic Realtime 2D W Doppler & Color Flow Hosp Completed 04/20/2018 38480 FX Femur Supra/Transcondylar Open TX W/Wo Fixation Completed 04/20/2018 00249 FX Femur Supra/Transcondylar Open TX W/Wo Fixation Completed Encounters Type Date Location Provider Dx Diagnosis Office Visit 09/03/2018 [facility] Anabel Pavel R21 Rash and other 8:45a IVETTE [place] nonspecific skin eruption M17.12 Unilateral primary osteoarthritis, left knee Z78.9 Other specified health status Office Visit 08/26/2018 10:00a [facility] Sebastian M97.01xD [facility] Beasley fracture around C.M.A. 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 internal prosth r hip jt, subs Office Visit 06/29/2018 [facility] Marcy R21 Rash and other 9:30a IVETTE Sinclair nonspecific skin eruption Office Visit 06/11/2018 [facility] Meenu Kyle, G40.909 Epilepsy, unsp, 11:30a D.O. not intractable, without status epilepticus I47.1 Supraventricular tachycardia I10 Essential (primary) hypertension M97.01xD Periprosth fracture around internal prosth r hip jt, subs Office 05/27/2018 [facility] Kush R94.01 Abnormal Visit 7:00a Eric Mike MD electroencephalogram [EEG] R47.81 Slurred speech M62.81 Muscle weakness (generalized) I67.82 Cerebral ischemia Office Visit 05/27/[address] [facility] Gisel I69.398 Other sequelae 10:58a Assoc,pan Vides, of cerebral Hospitalists INCLUSION INTERN infarction I10 Essential (primary) hypertension G93.49 Other encephalopathy S72.491A Oth fracture of lower end of right femur, init for clos fx Office Visit 05/26/2018 [facility] I69.398 Other sequelae 10:57a Assoc,pc [facility] Dotazeb, of cerebral Hospitalists INCLUSION INTERN infarction G93.49 Other encephalopathy I10 Essential (primary) hypertension Office Visit 05/26/2018 7:00a [facility] Kush Mike, R47.81 Slurred MD speech M62.81 Muscle weakness (generalized) I67.82 Cerebral ischemia Office Visit 05/25/2018 7:00a [facility] Kush Mike, R47.81 Slurred MD speech M62.81 Muscle weakness (generalized) I67.82 Cerebral ischemia 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 Office Visit 05/25/2018 10:57a [facility] Jason Kang MD R55 Syncope and Assoc,pc Hospitalists collapse I69.398 Other sequelae of cerebral infarction G93.49 Other encephalopathy I10 Essential (primary) hypertension S72.491A Oth fracture of lower end of right femur, init for clos fx Office Visit 04/27/2018 9:00a [facility] Marcy Sinclair, Z47.1 Aftercare INCLUSION INTERN following joint replacement surgery M97.01xA Periprosth fracture around internal prosth r hip jt, init D64.9 Anemia, unspecified Office Visit 04/23/2018 8:10a [facility] E86.0 Dehydration Assoc,pc [place], INCLUSION INTERN Hospitalists D64.9 Anemia, unspecified Office Visit 04/22/2018 8:09a [facility] E86.0 Dehydration Assoc,pc [place], INCLUSION INTERN Hospitalists D64.9 Anemia, unspecified Office Visit 04/21/2018 8:09a [facility] E86.0 Dehydration Assoc,pc [place], INCLUSION INTERN Hospitalists D64.9 Anemia, unspecified Office Visit 04/20/2018 8:08a [facility], E86.0 Dehydration Assoc,pc [place] Hospitalists D64.9 Anemia, unspecified Office Visit 04/19/2018 8:07a [facility] E86.0 Dehydration Assoc,pc [place], INCLUSION INTERN Hospitalists D64.9 Anemia, unspecified Z86.73 Prsnl hx of TIA (TIA), and cereb infrc w/o resid deficits Office Visit 04/19/2018 Orthopedic Sebastian Beasley, M97.01xA Periprosth 11:44a [facility] fracture around internal prosth r hip jt, init Office Visit 04/18/[address] [facility] Sydney Castillo, Z86.73 Prsnl hx of TIA 8:06a Assocpan M.D. (TIA), and Hospitalists cereb infrc w/o resid deficits S72.491A Oth fracture of lower end of right femur, init for clos fx Office Visit 04/18/2018 Orthopedic Natalie S72.491A Oth fracture of 9:47a [facility] Villafuerte lower end of C.M.A. right femur, init for clos fx Office Visit 12/08/2017 Orthopedic Lj Aadm, M17.12 Unilateral 1:30p [facility] primary C.M.ATomeka osteoarthritis, left knee Plan of Treatment Future Appointment(s):01/26/2019 1:45 pm - Jamarcus Coyle M.D. at [facility]09/28/2018 - Jamarcus Coyle M.D.G40.209 Localization-related (focal) (partial) symptomatic epilepsyNew Medication: Lamotrigine 25 mg - 1 po qhs for 1 wk then 1 bid for 1 wk then 2 bidFollow up:3 - 4 MONTHSRecommendations:start lamotrigine and taper off of Keppra by decreasing to 250 mg a night for 2 weeks and then stop QifycoO16 Syncope and dmtffrnqD12.398 Other sequelae of cerebral infarctionNew Therapy:Physical Therapy
[2018-10-21 05:13] LABS: Albumin 3.4 g/dL (3.2-5.2); Albumin/Globulin Ratio 1.3 (1-3); BUN/Creatinine Ratio 18.7 (8-20); Calcium 8.9 mg/dL (8.6-10.3); EGFR Non-African American 37.4 (>60); Globulin 2.7 g/dL (2-4); Potassium 3.5 mmol/L (3.5-5.0); Total Bilirubin 0.6 mg/dL (0.2-1.0); Total Protein 6.1 g/dL (6.4-8.9)
[2018-10-21] MEDS ORDERED: Docusate CAP* 100 MG PO PRN (06:08)
[2018-10-21] MEDS ORDERED: Acetaminophen TAB* 325 MG PO PRN (06:08)
[2018-10-21] MEDS ORDERED: Senna TAB PO PRN (06:08)
[2018-10-21] MEDS ORDERED: Al Hydrox/Mg Hydrox/Simet LIQ* 30 ML UDC PO PRN (06:08)
[2018-10-21] MEDS ORDERED: oxyCODONE TAB* 5 MG TAB PO PRN (06:10)
[2018-10-21] MEDS ORDERED: hydrOXYzine HCL TAB* 25 MG PO PRN (06:10)
[2018-10-21 06:13] LABS: Urine Appearance Cloudy; Urine Bacteria 3+ (Absent); Urine Bilirubin Negative (Negative); Urine Blood 2+ (Negative); Urine Color Yellow; Urine Glucose Negative (Negative); Urine Ketones Negative (Negative); Urine Nitrite Negative (Negative); Urine Protein 1+(30 mg/dL) (Negative); Urine Red Blood Cell 3+(>10/hpf) (Absent); Urine Specific Gravity 1.009 (1.010-1.030); Urine Urobilinogen Negative (Negative); Urine White Blood Cell 3+(>20/hpf) (Absent)
[2018-10-21] MEDS ORDERED: cefTRIAXone(*) 1 GM in NS 0.9% 50 ML* 50 ML IVPB ONE (06:31)
--- NOTE | 2018-10-21 06:34 | PN ---
Progress Note - Progress Note Date of Service: 10/21/18 Note: Spoke with Dr. Coyle - he recommended increasing her lamotrigine to 75 mg PO BID from 50 mg PO BID. He will see her later today.
[2018-10-21] MEDS: lamoTRIgine TAB(*) 25 MG PO SCH ×2 (06:57→10:18)
[2018-10-21] MEDS: NS 0.9% 1000 ML* 1,000 ML IV SCH ×3 (06:59→17:00)
[2018-10-21] MEDS ORDERED: Ferrous Sulfate TAB* 325 MG PO SCH (09:00)
[2018-10-21] MEDS ORDERED: Metoprolol Tartrate TAB* 25 MG PO SCH (09:00)
[2018-10-21] MEDS ORDERED: GLUCOSAMINE PO SCH (09:00)
[2018-10-21] MEDS ORDERED: Ascorbic Acid TAB* 500 MG PO SCH (09:00)
[2018-10-21] MEDS ORDERED: METHYLSULFONYLMETHANE PO SCH (09:00)
[2018-10-21] MEDS ORDERED: lamoTRIgine TAB(*) 25 MG PO SCH (09:00)
--- NOTE | 2018-10-21 09:42 | HP ---
CC: [facility] staff, Dr. Meenu Wright * HISTORY AND PHYSICAL: DATE OF ADMISSION: 10/21/18 TIME OF EVALUATION: 0600. PRIMARY CARE PHYSICIAN: [facility] staff, Dr. Meenu Wright. CHIEF COMPLAINT: Fall with altered mental status. HISTORY OF PRESENT ILLNESS: This is an 87-year-old female who presented from [facility] after being found on the ground, face down, in vomit, minimally responsive. The patient does not recall what happened. She states she was told she rolled out of bed. She remembers saying "help," but she does not remember any further details other than she was vomiting. The staff found her lying face down in vomit, minimally responsive. She was promptly brought to the emergency room for further evaluation. When she was initially evaluated by EMS, she seemed altered; by the time she arrived to the emergency room, she was alert and oriented, able to follow commands, with no gross focal neurologic deficits. On my encounter, she denies any pain. She states she feels fine. No chest pain or shortness of breath. No abdominal pain. No urinary symptoms. She does have some nausea. She is alert and oriented x3. She states she has not been eating or drinking well because she does not like the food at [facility]. Otherwise, review of systems is negative. In the emergency room, the patient had labs and imaging. She was given 2 L of fluid and 650 mg of Tylenol , referred to the hospitalist service for further evaluation. PAST MEDICAL HISTORY: 1. CVA. 2. History of seizure disorder, on antiepileptic. 3. Hypertension. 4. History of distal femur fracture, status post ORIF. MEDICATIONS: 1. Oxycodone 5 mg every 4 hours as needed. 2. Tylenol 650 mg every 4 hours as needed. 3. Lopressor 12.5 mg p.o. b.i.d. 4. Hydroxyzine 25 mg every 8 hours as needed for itching. 5. Vitamin C tab, 1 tab daily. 6. Colace 1 tab b.i.d. 7. Lamictal, has been titrated up to 25 mg 2 tabs p.o. b.i.d. starting on 10/14. 8. Aspirin 325 mg p.o. daily. 9. Calcium carbonate 500 mg p.o. daily. 10. Ferrous sulfate 325 mg p.o. daily. 11. Magnesium oxide 400 mg p.o. daily. 12. MSM glucosamine capsule 250-250 p.o. daily. 13. [place]-3 fatty acids p.o. daily. ALLERGIES: No known drug allergies. FAMILY HISTORY: Reviewed and noncontributory. SOCIAL HISTORY: As mentioned, the patient resides at [facility]. She is wheelchair bound. No history of smoking, alcohol or illicit drug use. She , with 3 grown children. Her daughter, Lisha Barrientos, is her healthcare proxy. She states she is a DNR/DNI. Her MOLST form will be modified to reflect this. REVIEW OF SYSTEMS: A 14-point review of systems is as mentioned in the HPI, otherwise negative. PHYSICAL EXAMINATION GENERAL: Frail, elderly female, in no acute distress. VITALS: Temperature 98.8, T-max 100.5, pulse is 84, respiratory rate 24, oxygen saturation 94% on room air, blood pressure 100/54. HEENT: Head normocephalic. Pupils are equal and reactive, anicteric. Oropharynx: Mucous membranes are dry. She has a hematoma on her left cheek. RESPIRATORY: Diminished breath sounds. No wheezing, rhonchi or rales. CARDIAC: Regular rate and rhythm. Harsh systolic murmur, most prominent over the left sternal base. ABDOMEN: Positive bowel sounds. Some mild distention. Nontender. EXTREMITIES: No clubbing. Trace edema. +1 DPs. NEUROLOGIC: She is alert and oriented x3. No gross focal neurologic deficits. DERM: She has scattered ecchymotic skin tears, wrapped in bandage, per ER report. There are several skin tears, which are not wrapped in bandages. LABORATORY DATA: White count is 4.6, hemoglobin 13.8, hematocrit 42, platelets 105. INR 0.98. Sodium 138, potassium 3.5, chloride 101, bicarb 22, anion gap 15, BUN 25, creatinine 1.34, glucose 135, lactic acid 7.6. AST 132, ALT 72, alk phos 130. Troponin is 0.05. UA shows squamous cells, +2 leuks, +3 whites, +2 blood. RADIOGRAPHIC DATA: No acute finding. CT of the cervical spine: No evidence for acute fracture. Other plain films, per Dr. Flores, showed no acute fracture. ASSESSMENT: This is an 87-year-old wheelchair bound female, with a history of seizure disorder, who presents to the emergency room after being found lying down in her vomit at [facility]. 1. Altered mental status. Assessment: The patient's history and physical are concerning for a seizure. She was diagnosed with new onset seizures back in May. She was initially started on Keppra. This has since been changed and titrated up to lamotrigine. It is unclear who is managing her antiepileptic medication. It is less likely a neurologic stroke process. It could be related to volume depletion. She did have a low-grade temperature on arrival, but there is no focal finding or infection, no white count. Her troponin has mildly bumped, but I suspect this is demand ischemia in the setting of having a seizure. Plan: We will admit her to [address] [place] [address] on telemetry. We will continue on fluids, repeat her lactate, seizure precautions, neuro checks. We will trend her troponin. We will get an EKG. We will follow up with Neurology if they want to increase her lamotrigine or switch her to a different agent; it is unclear why she was switched. She did get a dose of ceftriaxone in ED. Recommend follow up on her U/A. 2. Acute kidney injury: This is likely related to volume depletion. Plan: She is getting hydration. Repeat her labs tomorrow morning. Repeat lactate today. 3. Elevated LFTs: We will repeat her labs tomorrow as well. Could be that she was hypotensive during her 'event' when found on floor. 4. Chronic medical problems: We will resume her home medications as prescribed. 5. FEN: Place her on regular diet with IV fluids. 6. DVT prophylaxis: The patient scores high risk. We will place her on SCDs. 7. Code status: The patient confirms she is a DNR/DNI. We will have her fill out the MOLST form this evening. PATIENT TIME: Greater than 45 minutes were spent doing the history and physical , more than half the time was spent in direct patient contact. [id number]/[facility] #: [id number] PATRIC
[2018-10-21] MEDS: Aspirin TAB* 325 MG PO SCH (10:18)
[2018-10-21] MEDS: Ondansetron INJ* 2 MG/ML VIAL IV PRN (13:51)
--- NOTE | 2018-10-21 14:25 | PN ---
Hospitalist Progress Note Date of Service: 10/21/18 I have seen and examined Ms. Pickett and assume her care for today. She was drowsy but alerted to voice and responded appropriately to my questions. She had an episode of hypotension this morning that responded well to 1L fluid bolus. She is post-ictal, but I am concerned that she may also be septic. I am rechecking lactic acid, a cbc, and blood cultures, and a CXR. Dr. Coyle has also evaluated her and is changing her antiepileptic from lamotrigine to keppra given lft abnormalities.
[2018-10-21 15:14] LABS: Hematocrit 34 % (35-47); Hemoglobin 11.1 g/dl (12.0-16.0); Mean Corpuscular HGB Conc 33 g/dl (31-36); Mean Corpuscular Hemoglobin 29 pg (27-31); Mean Corpuscular Volume 89 fL (80-97); Red Blood Count 3.81 10^6/ul (4.00-5.40); Red Cell Distribution Width 17 % (10.5-15); White Blood Count 3.6 10^3/ul (3.5-10.8)
[2018-10-21] MEDS: levETIRAcetam IV* 750 MG in NS 0.9% 100 ML* 100 ML IVPB SCH (15:28)
[2018-10-21 15:41] LABS: ABS Basophils 0 10^3/ul (0-0.2); ABS Eosinophils 0 10^3/ul (0-0.6); ABS Lymphocytes 0.2 10^3/ul (1.0-4.8); ABS Monocytes 0 10^3/ul (0-0.8); ABS Neutrophils 3.3 10^3/ul (1.5-7.7); ABS Nucleated RBC 0 10^3/ul; Eosinophil % 0 %; Lymphocyte % 6.2 %; Mean Platelet Volume 8.8 fL (7.4-10.4); Nucleated Red Blood Cells % 0; Platelet Count 62 10^3/ul (150-450)
[2018-10-21] MEDS ORDERED: NS 0.9% 1000 ML* 2,000 ML IV ONE (15:59)
--- NOTE | 2018-10-21 16:16 | PN ---
Hospitalist Progress Note Date of Service: 10/21/18 I went back to see Majo after her nurse expressed concerns that she was hypoxic and hypotensive. Majo herself has no complaints, she is more awake than she was this morning, and says nothing is bothering her. Her exam is remarkable for rhonchi b/l. She has no nuchal rigidity, no abdominal tenderness or guarding, negative subramanian's sign. Her CXR is unremarkable to my read, but she continues to be hypotensive despite 3L IVF. Her lactate continues to climb. Her platelets are dropping and I am concerned she is going in to septic shock. I have transferred her to the ICU and discussed her case with Dr. Ruiz. He agrees to accept her on to his service.
--- NOTE | 2018-10-21 16:25 | PN ---
Hospitalist Progress Note Date of Service: 10/21/18 I called Majo's daughter in law Daphney and updated her on Majo's status--I expressed my concern that she is critical. She understands and appreciates my update. She was not aware of the DNR wish, but I confirmed that that is what Majo discussed with Dr. Ramachandran at the time of admission, and Daphney agrees that DNR is appropriate. She is going to bring her MOLST in now.
[2018-10-21] MEDS ORDERED: Norepinephrine VIAL* 1 MG/ML 4 ML VIAL ONE (16:34)
[2018-10-21] MEDS ORDERED: LORazepam INJ* 2 MG/ML 1 ML VIAL ONE (16:42)
[2018-10-21] MEDS ORDERED: LORazepam INJ* 2 MG/ML 1 ML VIAL IV PUSH ONE (17:00)
--- NOTE | 2018-10-21 17:04 | CONS ---
NEUROLOGY CONSULTATION: DATE OF CONSULT: 10/21/18 LOCATION: She is in room 405. REFERRING PROVIDER: Dr. Ramachandran. CHIEF COMPLAINT: Episode of loss of consciousness, vomiting, history of seizures. HISTORY OF PRESENT ILLNESS: Majo Pickett is an 87-year-old woman, known to me from outpatient evaluation for her seizure. She was hospitalized in May with an episode of diminished responsiveness and right-sided weakness, accompanied by relative hypotension. She saw Dr. Mike in consultation, from Neurology. 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 EEG was abnormal, interpreted as showing a left intermittent frontotemporal slowing with left frontotemporal sharp and slow wave epileptiform discharges. The patient was started on Keppra and was discharged on it. An MRI of the brain at the same admission showed a chronic right parietal infarction. There was no evidence of an acute infarction. I saw her in my office earlier this month. She was very fatigued and seemed confused ever since the hospitalization, is my recollection in talking with her and her daughter. We decided to switch her to lamotrigine, which was just this current month. She was at [facility], getting rehabilitation, and was found on the floor next to her bed, on her face, with vomitus. She was brought into the emergency room where she had a temperature of 100.5 by temporal scan. Her urinalysis was notable for 2+ leukocyte esterase, 3+ white blood cells and red blood cells, and 3+ bacteria. She was started on ceftriaxone. I was asked to see her. She does not recall falling last evening. She recalls being on the floor and asking for help. There has not been any observed seizures. PAST MEDICAL HISTORY: Otherwise notable for a fall with right femur fracture requiring surgery, hypertension. MEDICATIONS: At the time of admission consist of: 1. Lamictal 50 mg p.o. b.i.d. 2. Aspirin 325 mg p.o. daily. 3. Lopressor 12.5 mg p.o. b.i.d. 4. Oxycodone 5 mg q.4 hours as needed for pain. 5. Colace 1 tablet b.i.d. 6. Hydroxyzine 25 mg p.o. q.8 hours as needed for itching. ALLERGIES: She does not have any known drug allergies. REVIEW OF SYSTEMS: From the patient is that she complains of cramps in her legs and abdominal discomfort. She feels very nauseous. She denies headache. She feels very shaky. She denies sweats, but endorses chills. She denies shortness of breath or chest pain. PHYSICAL EXAMINATION: She is a frail, elderly woman, who looks very uncomfortable and ill. Temperature most recently was at 98.7 by temporal scan, blood pressure has been hovering with the last measurement 106/40, heart rate is in the 70s and seems pretty regular, respiratory rate is 20 and oxygen saturation is 96% on room air. Heart is in a regular rhythm and I do not hear any murmurs. Neck is supple. There are no cervical bruits. Oral mucosa is moist. Neurologic Exam: Pupils react from about 3 down to 2 mm. Eye movements are full and there is no nystagmus. Facial musculature is symmetric. Tongue protrudes in the midline and and there is no dysarthria. She has diffuse tremors. Her skin is quite warm. Lungs sound clear anterolaterally, but her breath is raspy. She is alert and able to provide some history. She does not remember details of last evening. She complains of nausea as well as leg pain. There is no asterixis. She is quite alert, but very fatigued looking. LABORATORY DATA: Reviewed and includes a CT of the brain which shows old right parietal infarction and some atrophy. Chest x-ray is interpreted as normal. Other laboratory data is notable for an elevated lactic acid at 7.6, came down a little bit to 6.2 at 10:30 this morning. Troponin is mildly elevated at 0.05 at 5 this morning as well as at 9 this morning. Liver enzymes are elevated with AST 132, ALT 72, alkaline phosphatase 130. They were normal in May. Creatinine was elevated when she came in at 1.34 and BUN 25. Anion gap is elevated at 15. CBC is notable for white blood cell count of 4.6, 95.6% neutrophils. Platelet count is low at 105. Her platelet count was normal in May. IMPRESSION AND PLAN: Impression is that of history of seizures. She has an EEG just finished, which I looked over quickly and I do not see any epileptiform discharges. She is alert and interactive, so I do not think she is having seizures currently. It is possible she had a seizure last evening, but she is also quite sick with nausea and elevated liver enzymes. Also, her platelet count is down. She feels quite warm and had a fever when she first came in. She has evidence of a possible urinary tract infection, but aspiration is also a possibility. Her lactic acid level has not come down very significantly, so I think it is from infection and not from a seizure. I am concerned that she may be having an allergic reaction to Lamictal. I went ahead and stopped it and advised her nurse that we have discontinued it. Although she did not do well on Keppra, I think it is the safest short-term alternative. Ultimately, I would switch her to a different agent given her problems with fatigue and lethargy, but I think with her liver enzyme elevations , I am reluctant to put her on a potentially hepatotoxic agent such as phenytoin or valproic acid. I have explained my impression to Dr. Bernal. She is going to repeat some lab tests. I will continue to follow her along with you. [id number]/[facility] #: [id number] [facility]
[2018-10-21] MEDS: Magnesium Oxide TAB* 400 MG PO SCH (17:56)
[2018-10-21] MEDS ORDERED: Calcium Carbonate TAB* 1250 MG (CALCIUM 500 MG) PO SCH (18:00)
[2018-10-21] MEDS ORDERED: Piperacillin/Tazobac ADVAN(*) 3.375 GM in NS 0.9% 100 ML* 100 ML IVPB ONE (18:45)
--- NOTE | 2018-10-21 18:58 | PN ---
Date of Service: 10/21/18 Critical Care Services: 87 y/o female with Hx seizure disorder admitted to hospital from [facility] last night after being found down - was brought to ICU because of persistent hypotension and lactic acidosis unresponsive to volume infusion. Preliminary Dx is septic shock (possibly from UTI), but I am also concerned about bowel ischemia because there is no fever or leukocytosis, and patient complained nausea last night. Vital Signs: Temp Pulse Resp BP SpO2 FiO2 99.1 F 83 17 89/59 95 Physical Exam: Gen:Somnolent but arousable HEENT:no facial asymmetry Lungs: Clear Cardiac: Reg rhythm Abdomen: Not distended. No tenderness. Extremities: Warm. No cyanosis or edema. Fluid Balance (Past 24 Hours): 10/21/18 10/22/18 06:59 06:59 Intake Total 1000 2350 Balance 1000 2350 Weight 108 lb 126 lb Intake: IV Fluids 1000 2050 Oral 300 Labs: Laboratory Results - last 24 hr 10/21/18 10/21/18 10/21/18 04:43 04:43 04:43 WBC 4.6 RBC 4.76 Hgb 13.8 Hct 42 MCV 88 MCH 29 MCHC 33 RDW 17 H Plt Count 105 L MPV 8.4 Neut % (Auto) 95.6 Lymph % (Auto) 2.4 [place] % (Auto) 1.1 Eos % (Auto) 0.5 Baso % (Auto) 0.4 Absolute Neuts (auto) 4.4 Absolute Lymphs (auto) 0.1 L Absolute Monos (auto) 0.1 Absolute Eos (auto) 0 Absolute Basos (auto) 0 Absolute Nucleated RBC 0 Nucleated RBC % 0.2 INR (Anticoag Therapy) Sodium 138 Potassium 3.5 Chloride 101 Carbon Dioxide 22 Anion Gap 15 H BUN 25 H Creatinine 1.34 H Est GFR ( Amer) 45.3 Est GFR (Non-Af Amer) 37.4 BUN/Creatinine Ratio 18.7 Glucose 135 H Lactic Acid 7.6 H* Calcium 8.9 Total Bilirubin 0.60 AST 132 H ALT 72 H Alkaline Phosphatase 130 H Total Creatine Kinase 139 Troponin I 0.05 H* Total Protein 6.1 L Albumin 3.4 Globulin 2.7 Albumin/Globulin Ratio 1.3 Urine Color Urine Appearance Urine pH Ur Specific [place] Urine Protein Urine Ketones Urine Blood Urine Nitrate Urine Bilirubin Urine Urobilinogen Ur Leukocyte Esterase Urine WBC (Auto) Urine RBC (Auto) Ur Squamous Epith Cells Urine Bacteria Urine Glucose 10/21/18 10/21/18 10/21/18 04:43 05:50 09:00 WBC RBC Hgb Hct MCV MCH MCHC RDW Plt Count MPV Neut % (Auto) Lymph % (Auto) [place] % (Auto) Eos % (Auto) Baso % (Auto) Absolute Neuts (auto) Absolute Lymphs (auto) Absolute Monos (auto) Absolute Eos (auto) Absolute Basos (auto) Absolute Nucleated RBC Nucleated RBC % INR (Anticoag Therapy) 0.98 Sodium Potassium Chloride Carbon Dioxide Anion Gap BUN Creatinine Est GFR ( Amer) Est GFR (Non-Af Amer) BUN/Creatinine Ratio Glucose Lactic Acid Calcium Total Bilirubin AST ALT Alkaline Phosphatase Total Creatine Kinase Troponin I 0.05 H* Total Protein Albumin Globulin Albumin/Globulin Ratio Urine Color Yellow Urine Appearance Cloudy Urine pH 7.0 Ur Specific [place] 1.009 L Urine Protein 1+(30 mg/dl) A Urine Ketones Negative Urine Blood 2+ A Urine Nitrate Negative Urine Bilirubin Negative Urine Urobilinogen Negative Ur Leukocyte Esterase 2+ A Urine WBC (Auto) 3+(>20/hpf) A Urine RBC (Auto) 3+(>10/hpf) A Ur Squamous Epith Cells Present A Urine Bacteria 3+ A Urine Glucose Negative 10/21/18 10/21/18 10/21/18 10:32 14:45 14:45 WBC 3.6 RBC 3.81 L Hgb 11.1 L Hct 34 L MCV 89 MCH 29 MCHC 33 RDW 17 H Plt Count 62 L MPV 8.8 Neut % (Auto) 92.9 Lymph % (Auto) 6.2 Clare % (Auto) 0.9 Eos % (Auto) 0 Baso % (Auto) 0 Absolute Neuts (auto) 3.3 Absolute Lymphs (auto) 0.2 L Absolute Monos (auto) 0 Absolute Eos (auto) 0 Absolute Basos (auto) 0 Absolute Nucleated RBC 0 Nucleated RBC % 0 INR (Anticoag Therapy) Sodium Potassium Chloride Carbon Dioxide Anion Gap BUN Creatinine Est GFR ( Amer) Est GFR (Non-Af Amer) BUN/Creatinine Ratio Glucose Lactic Acid 6.2 H* 7.1 H* Calcium Total Bilirubin AST ALT Alkaline Phosphatase Total Creatine Kinase Troponin I Total Protein Albumin Globulin Albumin/Globulin Ratio Urine Color Urine Appearance Urine pH Ur Specific [place] Urine Protein Urine Ketones Urine Blood Urine Nitrate Urine Bilirubin Urine Urobilinogen Ur Leukocyte Esterase Urine WBC (Auto) Urine RBC (Auto) Ur Squamous Epith Cells Urine Bacteria Urine Glucose Nutrition: Oral diet - intake poor Impression: Persistent hypotension and lactic acidosis - possibilities include septic shock and bowel ischemia. Plan: 1. Broad spectrum antibiotic coverage (PIP/TAZO) 2. Vasopressor Rx with Levophed. 3. CT Scan of abdomen - looking for evidence of bowel ischemia. Patient is DNR/DNI by MOLST Form (signed last night). Prognosis guarded - patients daughter (healthcare proxy) present at bedside and aware of current situation. Critical Care Time: 45 minutes
[2018-10-21] MEDS ORDERED: Zosyn per Pharmacy* NOTE FOLLOW UP SCH (19:00)
[2018-10-21] MEDS ORDERED: Norepinephrine VIAL* 4 MG in NS 0.9% 250 ML* 246 ML IV SCH (19:00)
[2018-10-21 20:20] LABS: Hematocrit 34 % (35-47); Hemoglobin 10.9 g/dl (12.0-16.0); Mean Corpuscular HGB Conc 33 g/dl (31-36); Mean Corpuscular Hemoglobin 29 pg (27-31); Mean Corpuscular Volume 89 fL (80-97); Mean Platelet Volume 8.9 fL (7.4-10.4); Platelet Count 60 10^3/ul (150-450); Red Blood Count 3.78 10^6/ul (4.00-5.40); Red Cell Distribution Width 17 % (10.5-15)
--- NOTE | 2018-10-21 20:21 | PRO ---
PROCEDURE NOTE: DATE OF PROCEDURE: 10/21/18 - ROOM #ICU PROCEDURE: Insertion of an internal jugular venous catheter. DESCRIPTION OF PROCEDURE: This patient is an 87-year-old white female who was admitted to the hospital last night [facility] and was transferred to the intensive care unit because of hypotension, unresponsive to fluid infusions. Because there was difficulty with peripheral venous access, a central venous catheter was deemed necessary and a triple lumen 7-Kazakh central venous catheter was inserted into the right internal jugular vein under ultrasound guidance and the tip of the catheter was verified with a postprocedural chest x- ray. The patient tolerated the procedure and there were no apparent complications. [id number]/[facility] #: [id number] MTDD
[2018-10-21 20:32] LABS: Albumin 2.5 g/dL (3.2-5.2); Albumin/Globulin Ratio 1.2 (1-3); BUN/Creatinine Ratio 16.4 (8-20); Calcium 6.8 mg/dL (8.6-10.3); EGFR Non-African American 29.4 (>60); Globulin 2.1 g/dL (2-4); Potassium 3.6 mmol/L (3.5-5.0); Total Bilirubin 0.9 mg/dL (0.2-1.0); Total Protein 4.6 g/dL (6.4-8.9)
[2018-10-21 20:44] LABS: ABS Basophils 0 10^3/ul (0-0.2); ABS Eosinophils 0 10^3/ul (0-0.6); ABS Lymphocytes 0.4 10^3/ul (1.0-4.8); ABS Monocytes 0.2 10^3/ul (0-0.8); ABS Neutrophils 20.4 10^3/ul (1.5-7.7); ABS Nucleated RBC 0 10^3/ul; Nucleated Red Blood Cells % 0
[2018-10-21 20:45] LABS: Immature Granulocytes 71 % (0-9); Neutrophil % 29 %
--- NOTE | 2018-10-21 21:03 | PN ---
Progress Note - Progress Note Date of Service: 10/21/18 Note: Repeat labs shows worsening renal failure and transaminitis. CT scan not able to be done due to renal failure. Concern for multiorgan failure and critical condition. Will discuss with family regarding poor prognosis.
[2018-10-21] MEDS ORDERED: Vancomycin(*) 1,000 MG in NS 0.9% 250 ML* 250 ML IVPB ONE (21:37)
[2018-10-21] MEDS ORDERED: Vancomycin(*) 0 MG in NS 0.9% 250 ML* 250 ML IVPB SCH (22:00)
[2018-10-21] MEDS ORDERED: Vancomycin per Pharmacy* NOTE FOLLOW UP PRN (23:09)
[2018-10-22] MEDS: Norepinephrine VIAL* 8 MG in NS 0.9% 500 ML* 492 ML IV SCH ×4 (00:11→23:04)
[2018-10-22] MEDS: ZOSYN 3.375 GM Q12H per EXTENDED INFUSION IVPB SCH ×4 (00:14→11:52)
[2018-10-22] MEDS: levETIRAcetam IV* 750 MG in NS 0.9% 100 ML* 100 ML IVPB SCH ×2 (04:49→15:59)
[2018-10-22 06:02] LABS: Hematocrit 33 % (35-47); Hemoglobin 10.6 g/dl (12.0-16.0); Mean Corpuscular HGB Conc 32 g/dl (31-36); Mean Corpuscular Hemoglobin 28 pg (27-31); Mean Corpuscular Volume 88 fL (80-97); Mean Platelet Volume 9.6 fL (7.4-10.4); Platelet Count 56 10^3/ul (150-450); Red Blood Count 3.74 10^6/ul (4.00-5.40); Red Cell Distribution Width 18 % (10.5-15); White Blood Count 22.2 10^3/ul (3.5-10.8)
[2018-10-22 06:03] LABS: Albumin 2.5 g/dL (3.2-5.2); Albumin/Globulin Ratio 1.2 (1-3); BUN/Creatinine Ratio 19.4 (8-20); Calcium 6.8 mg/dL (8.6-10.3); EGFR Non-African American 34.4 (>60); Globulin 2.1 g/dL (2-4); Indirect Bilirubin 0.3 mg/dL (0.3-1.0); Potassium 4.1 mmol/L (3.5-5.0); Total Bilirubin 0.7 mg/dL (0.2-1.0); Total Protein 4.6 g/dL (6.4-8.9)
[2018-10-22 06:35] LABS: Immature Granulocytes 20 % (0-9); Lymphocytes % 7 %; Metamyelocytes % 1 % (0-2); Monocytes % 4 %; Neutrophil % 69 %
[2018-10-22 06:39] LABS: ABS Neutrophils 19.8 10^3/ul (1.5-7.7)
[2018-10-22] MEDS: NS 0.9% 1000 ML* 1,000 ML IV SCH ×2 (08:19→19:18)
[2018-10-22] MEDS: Ondansetron INJ* 2 MG/ML VIAL IV PRN (09:21)
[2018-10-22] MEDS: Aspirin TAB* 325 MG PO SCH (09:25)
[2018-10-22] MEDS ORDERED: cefTRIAXone(*) 1 GM in NS 0.9% 50 ML* 50 ML IVPB SCH (11:00)
--- NOTE | 2018-10-22 13:19 | EEG ---
ELECTROENCEPHALOGRAPHY: DATE OF STUDY: 10/21/18 REFERRING PROVIDER: Dr. Bernal. LOCATION: She is an inpatient in room 405. CLINICAL PROBLEM: Episode of loss of consciousness, history of seizures. MEDICATIONS: Include: 1. Roxicodone. 2. Hydroxyzine. 3. Rocephin. 4. Aspirin. 5. Lopressor. 6. Lamotrigine. REPORT: This 16-channel EEG is remarkable for background rhythms consisting of a posterior rhythm at about 8 cycles per second, which is fairly symmetric. There is some central theta activity as well. The patient is very uncomfortable with shivering and complains of cramping and nausea. Muscle artifact is quite abundant. Activation procedures are not attempted. There are no clinical events. There is no evidence of sleep. There are no focal, lateralized, or epileptiform abnormalities. CLINICAL IMPRESSION: Normal limited EEG due to excessive muscle artifact. Readable portions of the tracing reveal a normal background waking rhythm. [id number]/[facility] #: [id number] MTDHelen
[2018-10-22] MEDS ORDERED: Vancomycin(*) 1,000 MG in NS 0.9% 250 ML* 250 ML IVPB SCH (14:00)
--- NOTE | 2018-10-22 14:07 | PN ---
Date of Service: 10/22/18 Critical Care Services: Patient had an uneventful evening - is awake and aware this AM. Vital Signs: Temp Pulse Resp BP SpO2 FiO2 99.3 F 74 25 98/54 97 Physical Exam: Gen:Somnolent but arousable and oriented when aroused. Lungs: Scattered rhonchi Abdomen: Not distended and nontender. Extremities: Warm. No cyanosis or edema. Fluid Balance (Past 24 Hours): 10/21/18 10/22/18 06:59 06:59 Intake Total 1000 5023 Output Total 495 Balance 1000 4528 Weight 108 lb 125 lb Intake: IV Fluids 1000 3315 NS 1265 Medicated IV 1408 Keppra 100 Levophed 848 vanco 260 zosyn 200 Oral 300 Output: Lund 495 Labs: Laboratory Results - last 24 hr 10/21/18 10/21/18 10/21/18 14:45 14:45 20:05 WBC 3.6 21.0 H RBC 3.81 L 3.78 L Hgb 11.1 L 10.9 L Hct 34 L 34 L MCV 89 89 MCH 29 29 MCHC 33 33 RDW 17 H 17 H Plt Count 62 L 60 L MPV 8.8 8.9 Neut % (Auto) 92.9 Not Reportable Lymph % (Auto) 6.2 Not Reportable [place] % (Auto) 0.9 Not Reportable Eos % (Auto) 0 Not Reportable Baso % (Auto) 0 Not Reportable Absolute Neuts (auto) 3.3 20.4 H Absolute Lymphs (auto) 0.2 L 0.4 L Absolute Monos (auto) 0 0.2 Absolute Eos (auto) 0 0 Absolute Basos (auto) 0 0 Absolute Nucleated RBC 0 0 Immature Gran % 71 H Neutrophils % 29 Band Neutrophils % 71 H Lymphocytes % Monocytes % Metamyelocytes % Nucleated RBC % 0 0 Abs Neuts (Manual) Abs Lymphs (Manual) Abs Monocytes (Manual) Normal RBC Morphology Normal Sickle Cells Sodium Potassium Chloride Carbon Dioxide Anion Gap BUN Creatinine Est GFR ( Amer) Est GFR (Non-Af Amer) BUN/Creatinine Ratio Glucose Lactic Acid 7.1 H* Calcium Total Bilirubin Direct Bilirubin Indirect Bilirubin AST ALT Alkaline Phosphatase Total Protein Albumin Globulin Albumin/Globulin Ratio 10/21/18 10/21/18 10/22/18 20:05 21:00 05:35 WBC RBC Hgb Hct MCV MCH MCHC RDW Plt Count MPV Neut % (Auto) Lymph % (Auto) [place] % (Auto) Eos % (Auto) Baso % (Auto) Absolute Neuts (auto) Absolute Lymphs (auto) Absolute Monos (auto) Absolute Eos (auto) Absolute Basos (auto) Absolute Nucleated RBC Immature Gran % Neutrophils % Band Neutrophils % Lymphocytes % Monocytes % Metamyelocytes % Nucleated RBC % Abs Neuts (Manual) Abs Lymphs (Manual) Abs Monocytes (Manual) Normal RBC Morphology Sickle Cells Sodium 137 139 Potassium 3.6 4.1 Chloride 111 114 H Carbon Dioxide 18 L 17 L Anion Gap 8 8 BUN 27 H 28 H Creatinine 1.65 H 1.44 H Est GFR ( Amer) 35.6 41.7 Est GFR (Non-Af Amer) 29.4 34.4 BUN/Creatinine Ratio 16.4 19.4 Glucose 111 H 70 Lactic Acid 2.3 H* Calcium 6.8 L 6.8 L Total Bilirubin 0.90 0.70 Direct Bilirubin 0.40 H Indirect Bilirubin 0.3 AST 224 H 164 H ALT 158 H 158 H Alkaline Phosphatase 133 H 121 H Total Protein 4.6 L 4.6 L Albumin 2.5 L 2.5 L Globulin 2.1 2.1 Albumin/Globulin Ratio 1.2 1.2 10/22/18 10/22/18 05:35 05:35 WBC 22.2 H RBC 3.74 L Hgb 10.6 L Hct 33 L MCV 88 MCH 28 MCHC 32 RDW 18 H Plt Count 56 L MPV 9.6 Neut % (Auto) Not Reportable Lymph % (Auto) Not Reportable [place] % (Auto) Not Reportable Eos % (Auto) Not Reportable Baso % (Auto) Not Reportable Absolute Neuts (auto) Not Reportable Absolute Lymphs (auto) Not Reportable Absolute Monos (auto) Not Reportable Absolute Eos (auto) Not Reportable Absolute Basos (auto) Not Reportable Absolute Nucleated RBC Not Reportable Immature Gran % 20 H Neutrophils % 69 Band Neutrophils % 19 H Lymphocytes % 7 Monocytes % 4 Metamyelocytes % 1 Nucleated RBC % Not Reportable Abs Neuts (Manual) 19.8 H Abs Lymphs (Manual) 1.6 Abs Monocytes (Manual) 0.8 Normal RBC Morphology Normal Sickle Cells Sodium Potassium Chloride Carbon Dioxide Anion Gap BUN Creatinine Est GFR ( Amer) Est GFR (Non-Af Amer) BUN/Creatinine Ratio Glucose Lactic Acid 1.8 Calcium Total Bilirubin Direct Bilirubin Indirect Bilirubin AST ALT Alkaline Phosphatase Total Protein Albumin Globulin Albumin/Globulin Ratio Studies: Urine culture growing Proteus mirabilis (> 100,000 colonies) Nutrition: Oral diet - intake poor. Impression: Septic shock and thrombocytopenia from a gram-negative urinary tract infection. Plan: Continue PIP/TAZO pending sensitivities. Taper levophed as tolerated.
[2018-10-22 16:22] LABS: Levetiracetam <2.0 mcg/mL
[2018-10-22] MEDS: Magnesium Oxide TAB* 400 MG PO SCH (21:16)
[2018-10-22] MEDS: Heparin VIAL(*) 5000 UNITS/ML VIAL (FIVE THOUSAND) SUBCUT SCH (21:16)
[2018-10-23] MEDS: ZOSYN 3.375 GM Q12H per EXTENDED INFUSION IVPB SCH ×4 (01:02→12:10)
[2018-10-23] MEDS: levETIRAcetam IV* 750 MG in NS 0.9% 100 ML* 100 ML IVPB SCH ×2 (02:51→16:02)
[2018-10-23] MEDS: Norepinephrine VIAL* 8 MG in NS 0.9% 500 ML* 492 ML IV SCH ×2 (04:10→15:12)
[2018-10-23 08:50] LABS: Hematocrit 31 % (35-47); Hemoglobin 9.8 g/dl (12.0-16.0); Mean Corpuscular HGB Conc 32 g/dl (31-36); Mean Corpuscular Hemoglobin 28 pg (27-31); Mean Corpuscular Volume 89 fL (80-97); Mean Platelet Volume 10.8 fL (7.4-10.4); Platelet Count 52 10^3/ul (150-450); Red Blood Count 3.47 10^6/ul (4.00-5.40); Red Cell Distribution Width 17 % (10.5-15); White Blood Count 14.3 10^3/ul (3.5-10.8)
[2018-10-23 08:55] LABS: Albumin 2.1 g/dL (3.2-5.2); BUN/Creatinine Ratio 24.2 (8-20); Calcium 7.3 mg/dL (8.6-10.3); EGFR Non-African American 53.1 (>60); Globulin 2.1 g/dL (2-4); Potassium 3.7 mmol/L (3.5-5.0); Total Bilirubin 0.4 mg/dL (0.2-1.0); Total Protein 4.2 g/dL (6.4-8.9)
[2018-10-23] MEDS: Aspirin TAB* 325 MG PO SCH (09:19)
[2018-10-23] MEDS: Famotidine SUSP* 40 MG/5 ML ORAL.SYRIN G TUBE SCH (09:19)
[2018-10-23] MEDS: Heparin VIAL(*) 5000 UNITS/ML VIAL (FIVE THOUSAND) SUBCUT SCH ×2 (09:19→21:13)
[2018-10-23 09:59] LABS: Lamotrigine 4.4 mcg/mL (2.5 - 15.0)
[2018-10-23] MEDS: D5LR 1000 ML BAG* 1,000 ML IV SCH ×2 (10:51→21:00)
[2018-10-23] MEDS ORDERED: Albuterol/Ipratropium NEB.SOL* Albuterol 2.5 MG/Ipratropium 0.5 MG 3 ML INH ONE (10:57)
--- NOTE | 2018-10-23 13:01 | PN ---
Date of Service: 10/23/18 Critical Care Services: No longer on vasopressor support with levophed. Only remaining problem is poor oral intake, with blood glucose down to 43 mg/dL this AM (asymptomatic). Now on D5LR at 75 cc/hr Vital Signs: Temp Pulse Resp BP SpO2 FiO2 97.3 F 72 19 143/59 100 Physical Exam: Gen:Somnolent but arousable Lungs: Faint end-expiratory wheeze on right side. Cardiac: No murmurs Abdomen:Not distended Extremities: No cyanosis or edema Fluid Balance (Past 24 Hours): 10/22/18 10/23/18 06:59 06:59 Intake Total 5023 3623.0 Output Total 495 1345 Balance 4528 2278 Weight 125 lb 124 lb Intake: IV Fluids 3315 2063.5 NS 1265 2063.5 Medicated IV 1408 1199.5 Keppra 100 398 Levophed 848 572 vanco 260 zosyn 200 229.5 Oral 300 360 Output: Lund 495 1345 Other: # Bowel Movements 0 Labs: 10/21/18 10/23/18 04:43 08:15 WBC 14.3 H RBC 3.47 L Hgb 9.8 L Hct 31 L MCV 89 MCH 28 MCHC 32 RDW 17 H Plt Count 52 L MPV 10.8 H Hem Pathologist Commnt Sodium Potassium Chloride Carbon Dioxide Anion Gap BUN Creatinine Est GFR ( Amer) Est GFR (Non-Af Amer) BUN/Creatinine Ratio Glucose Glucose Meter Confirm Calcium Total Bilirubin AST ALT Alkaline Phosphatase Total Protein Albumin Globulin Albumin/Globulin Ratio Lamotrigine 4.4 Levetiracetam <2.0 L 10/23/18 10/23/18 08:15 10:25 WBC RBC Hgb Hct MCV MCH MCHC RDW Plt Count MPV Hem Pathologist Commnt Sodium 141 Potassium 3.7 Chloride 118 H Carbon Dioxide 18 L Anion Gap 5 BUN 24 Creatinine 0.99 H Est GFR ( Amer) 64.2 Est GFR (Non-Af Amer) 53.1 BUN/Creatinine Ratio 24.2 H Glucose 43 L* Glucose Meter Confirm 87 Calcium 7.3 L Total Bilirubin 0.40 AST 70 H ALT 85 H Alkaline Phosphatase 115 H Total Protein 4.2 L Albumin 2.1 L Globulin 2.1 Albumin/Globulin Ratio 1.0 Lamotrigine Levetiracetam Studies: None today Nutrition: Oral diet - Intake poor Impression: Septic shock (resolved) from Proteus UTI. Plan: 1. Continue IV antibiotics for 5-7 days 2. Encourage PO food intake (instead of a feeding tube).
[2018-10-23] MEDS ORDERED: Metoprolol Tartrate TAB* 25 MG PO ONE (15:00)
[2018-10-23] MEDS ORDERED: Furosemide IV* 10 MG/ML 2 ML VIAL (20 MG) IV ONE ×2 (17:09→20:39)
[2018-10-23] MEDS ORDERED: ZOSYN 3.375 GM Q12H per EXTENDED INFUSION IVPB SCH ×2 (20:00)
[2018-10-23] MEDS: Metoprolol Tartrate TAB* 25 MG PO SCH (21:12)
[2018-10-24] MEDS: Morphine VIAL* 4 MG/ML VIAL (1 ml vial) IV PRN ×2 (01:12→23:56)
[2018-10-24] MEDS: levETIRAcetam IV* 750 MG in NS 0.9% 100 ML* 100 ML IVPB SCH ×2 (03:11→15:10)
[2018-10-24] MEDS: ZOSYN 3.375 GM Q12H per EXTENDED INFUSION IVPB SCH ×4 (05:06→10:05)
[2018-10-24 07:27] LABS: Hematocrit 30 % (35-47); Hemoglobin 9.8 g/dl (12.0-16.0); Mean Corpuscular HGB Conc 33 g/dl (31-36); Mean Corpuscular Hemoglobin 29 pg (27-31); Mean Corpuscular Volume 86 fL (80-97); Mean Platelet Volume 9.7 fL (7.4-10.4); Platelet Count 47 10^3/ul (150-450); Red Blood Count 3.45 10^6/ul (4.00-5.40); Red Cell Distribution Width 17 % (10.5-15); White Blood Count 12.9 10^3/ul (3.5-10.8)
[2018-10-24 07:39] LABS: BUN/Creatinine Ratio 18.3 (8-20); Calcium 7.7 mg/dL (8.6-10.3)
[2018-10-24] MEDS: Heparin VIAL(*) 5000 UNITS/ML VIAL (FIVE THOUSAND) SUBCUT SCH (09:25)
[2018-10-24] MEDS: Metoprolol Tartrate TAB* 25 MG PO SCH ×2 (09:26→20:30)
[2018-10-24] MEDS: Aspirin TAB* 325 MG PO SCH (09:28)
[2018-10-24] MEDS ORDERED: Potassium Chlor TAB* 20 MEQ TAB.ER PO STA (09:37)
[2018-10-24] MEDS: Famotidine SUSP* 40 MG/5 ML ORAL.SYRIN G TUBE SCH (10:06)
[2018-10-24 12:21] LABS: Activated Partial Thrombo Time 36.4 seconds (26.0-36.3); Fibrinogen 441.6 mg/dL (110.8-404.3); INR 1.05 (0.77-1.02)
[2018-10-24] MEDS ORDERED: Vancomycin Trough Check NOTE FOLLOW UP ONE (13:30)
--- NOTE | 2018-10-24 15:46 | PN ---
Subjective Date of Service: 10/24/18 Interval History: Pt seen and examined. Meds and labs reviewed. CC: N/A ROS: Denied PALACIOS/dizziness, F/C, N/V, CP, SOB, increased cough, sputum production , abd pain, diarrhea, constipation, dysuria, myalgias, arthralgias, throat pain , and new skin lesions. The rest of the 14 point ROS are unremarkable. PHYSICAL EXAM: GEN APPEARANCE: Awake, not in acute distress, not oriented to time, pt appears ill and weak HEENT: NC/AT, PERRLA, moist oral mucosa, (-) throat erythema NECK: Soft, supple, (-) cervical LAD, (-)JVD HEART: S1S2 WNL, RRR, No MRG CHEST: CTA, BL, GAE, No W/R/R ABD: Soft, ND/NT, NABS 4x Q EXT: No C/C/E SKIN: Warm to touch PSYCH: No active psychosis, hallucinations, depression, SI/HI Objective Active Medications: Aspirin (Aspirin Tab*) 325 mg PO DAILY [facility] Last Admin: 10/24/18 09:28 Dose: 325 mg Famotidine (Pepcid Susp*) 20 mg G TUBE DAILY [facility] Last Admin: 10/24/18 10:06 Dose: 20 mg Hydroxyzine HCl (Atarax Tab*) 25 mg PO TID PRN PRN Reason: ITCHING Last Admin: 10/24/18 02:55 Dose: 25 mg Levetiracetam 750 mg/ Sodium (Chloride) 107.5 mls @ 440 mls/hr IVPB Q12H [facility] Last Admin: 10/24/18 15:10 Dose: 440 mls/hr Dextrose/Lactated Ringer's (D5lr 1000 Ml Bag*) 1,000 mls @ 75 mls/hr IV .PER RATE [facility] Last Admin: 10/23/18 21:00 Dose: 75 mls/hr Cefazolin Sodium 1 gm/ Sodium (Chloride) 50 mls @ 200 mls/hr IVPB Q8H [facility] Lactobacillus Rhamnosus (Lactobacillus Acidophilus*) 2 tab PO DAILY [facility] Metoprolol Tartrate (Lopressor Tab*) 12.5 mg PO Q12HR [facility] Last Admin: 10/24/18 09:26 Dose: 12.5 mg Morphine Sulfate (Morphine Vial*) 1 mg IV Q4H PRN PRN Reason: PAIN Last Admin: 10/24/18 01:12 Dose: 1 mg Ondansetron HCl (Zofran Inj*) 4 mg IV Q4H PRN PRN Reason: NAUSEA/VOMITING Last Admin: 10/22/18 09:21 Dose: 4 mg Vital Signs - 8 hr 10/24/18 10/24/18 10/24/18 07:45 08:00 11:26 Temperature 98.0 F 98.0 F Pulse Rate 66 58 Respiratory 16 18 16 Rate Blood Pressure 138/55 112/51 (mmHg) O2 Sat by Pulse 100 98 Oximetry Oxygen Devices in Use Now: Nasal Cannula Result Diagrams: 10/24/18 07:07 10/24/18 07:07 Microbiology and Other Data: Microbiology 10/21/18 14:45 Aerobic Blood Culture - Preliminary Blood Venous No Growth Day 3 Anaerobic Blood Culture - Preliminary No Growth Day 3 10/21/18 05:50 Urine Culture - Final Urine Proteus Mirabilis 10/21/18 17:37 Nasal Screen MRSA (PCR) - Final Nasal Mrsa Not Detected Assess/Plan/Problems-Billing Assessment: 10/21: -Presented w/fall w/altered MS -Found face down in vomit and minimally responsive and was found to have BO and elevated LFTs thought to be due to hypotension in severe sepsis -Central line placed and was placed on Levophed in ICU 10/22: Normal EEG 10/23: Levophed D/Cd and transfer to floors - Patient Problems (1) Sepsis due to urinary tract infection Current Visit: Yes Status: Acute Code(s): A41.9 - SEPSIS, UNSPECIFIED ORGANISM; N39.0 - URINARY TRACT INFECTION, SITE NOT SPECIFIED SNOMED Code(s): 713178924 Comment: -Due to P. mirabilis, sensitive to Cefazolin -D/Cd Zosyn and placed on Cefazolin -Will place pt on Lactobacillus sup (2) Thrombocytopenia Current Visit: Yes Status: Acute Code(s): D69.6 - THROMBOCYTOPENIA, UNSPECIFIED SNOMED Code(s): 890969229 Comment: -Likely due to sepsis given toxic vacuoles and Dohle bodies seen on smear -Given <50K, will hold off on pharmacologic prophylaxis at this time and place pt on SCD -Sent for Heparin PF4 Abs to eval for HIT, although this seems unlikely -Will check Haptoglobin, D-dimer, PT/INR, PTT, Nick test, and fibrinogen levels---however given above smear, it is unlikely due to DIC but will await the results of above W/U (3) Elevated LFTs Current Visit: Yes Status: Acute Code(s): R94.5 - ABNORMAL RESULTS OF LIVER FUNCTION STUDIES SNOMED Code(s): 976990586 Comment: -Likely due to above -Now improving -Liver U/S unremarkable and shows only cholelithiasis in GB -Sent for viral hepatitis screen (4) Seizure disorder Current Visit: Yes Status: Acute Code(s): G40.909 - EPILEPSY, UNSP, NOT INTRACTABLE, WITHOUT STATUS EPILEPTICUS SNOMED Code(s): 658444717 Comment: -Continue Levetiracetam (5) DVT prophylaxis Current Visit: No Status: Acute Code(s): HEM2262 - SNOMED Code(s): 055680083 Comment: -Hold off on pharmacologic prophylaxis given thrombocytopenia -Placed on SCDs Status and Disposition: -For PT eval
[2018-10-24] MEDS: ceFAZolin 1 GM ADVAN(*) 1 GM in NS 0.9% 50 ML* 50 ML IVPB SCH ×2 (16:22→23:58)
[2018-10-24] MEDS: Lactobacillus Acidophilus* 1 TAB PO SCH (16:28)
[2018-10-24] MEDS ORDERED: ZOSYN 3.375 GM Q8H per EXTENDED INFUSION IVPB SCH ×2 (18:00)
[2018-10-25] MEDS: levETIRAcetam IV* 750 MG in NS 0.9% 100 ML* 100 ML IVPB SCH ×2 (03:23→15:44)
[2018-10-25 06:20] LABS: Hematocrit 31 % (35-47); Hemoglobin 10.4 g/dl (12.0-16.0); Mean Corpuscular HGB Conc 33 g/dl (31-36); Mean Corpuscular Hemoglobin 29 pg (27-31); Mean Corpuscular Volume 86 fL (80-97); Mean Platelet Volume 9.9 fL (7.4-10.4); Platelet Count 48 10^3/ul (150-450); Red Blood Count 3.63 10^6/ul (4.00-5.40); Red Cell Distribution Width 17 % (10.5-15); White Blood Count 7.8 10^3/ul (3.5-10.8)
[2018-10-25 06:30] LABS: Albumin 2.3 g/dL (3.2-5.2); BUN/Creatinine Ratio 17.1 (8-20); EGFR Non-African American 65.9 (>60); Globulin 2.2 g/dL (2-4); Magnesium 1.7 mg/dL (1.9-2.7); Phosphorus 1.3 mg/dL (2.5-5.0); Potassium 3.4 mmol/L (3.5-5.0); Total Bilirubin 0.9 mg/dL (0.2-1.0); Total Protein 4.5 g/dL (6.4-8.9)
[2018-10-25] MEDS: D5LR 1000 ML BAG* 1,000 ML IV SCH (06:40)
[2018-10-25] MEDS ORDERED: Magnesium Sulfate IV* 3 GM in NS 0.9% 100 ML* 100 ML IVPB ONE (09:30)
[2018-10-25] MEDS ORDERED: Potassium Phosphate IV* 15 MMOLE in NS 0.9% 250 ML* 250 ML IVPB ONE (09:30)
[2018-10-25 09:50] LABS: Hepatitis B Surface Antigen Nonreactive (Nonreactive)
[2018-10-25] MEDS: ceFAZolin 1 GM ADVAN(*) 1 GM in NS 0.9% 50 ML* 50 ML IVPB SCH ×3 (09:56→23:57)
[2018-10-25 10:15] LABS: Hepatitis C Antibody Nonreactive (Nonreactive)
[2018-10-25] MEDS: Metoprolol Tartrate TAB* 25 MG PO SCH ×2 (10:17→20:34)
[2018-10-25] MEDS: Aspirin TAB* 325 MG PO SCH (10:17)
[2018-10-25] MEDS: Lactobacillus Acidophilus* 1 TAB PO SCH (10:18)
[2018-10-25] MEDS: Famotidine SUSP* 40 MG/5 ML ORAL.SYRIN G TUBE SCH (10:24)
--- NOTE | 2018-10-25 15:54 | PN ---
Subjective Date of Service: 10/25/18 Interval History: Pt seen and examined. Meds and labs reviewed. CC: N/A ROS: Denied PALACIOS/dizziness, F/C, N/V, CP, SOB, increased cough, sputum production , abd pain, diarrhea, constipation, dysuria, myalgias, arthralgias, throat pain , and new skin lesions. The rest of the 14 point ROS are unremarkable. PHYSICAL EXAM: GEN APPEARANCE: Awake, not in acute distress, not oriented to time, pt appears ill and weak HEENT: NC/AT, PERRLA, moist oral mucosa, (-) throat erythema NECK: Soft, supple, (-) cervical LAD, (-)JVD HEART: S1S2 WNL, RRR, No MRG CHEST: CTA, BL, GAE, No W/R/R ABD: Soft, ND/NT, NABS 4x Q EXT: No C/C/E SKIN: Warm to touch PSYCH: No active psychosis, hallucinations, depression, SI/H Objective Active Medications: Aspirin (Aspirin Tab*) 325 mg PO DAILY [facility] Last Admin: 10/25/18 10:17 Dose: 325 mg Famotidine (Pepcid Susp*) 20 mg G TUBE DAILY [facility] Last Admin: 10/25/18 10:24 Dose: 20 mg Hydroxyzine HCl (Atarax Tab*) 25 mg PO TID PRN PRN Reason: ITCHING Last Admin: 10/24/18 02:55 Dose: 25 mg Levetiracetam 750 mg/ Sodium (Chloride) 107.5 mls @ 440 mls/hr IVPB Q12H [facility] Last Admin: 10/25/18 15:44 Dose: 440 mls/hr Dextrose/Lactated Ringer's (D5lr 1000 Ml Bag*) 1,000 mls @ 75 mls/hr IV .PER RATE [facility] Last Admin: 10/25/18 06:40 Dose: 75 mls/hr Cefazolin Sodium 1 gm/ Sodium (Chloride) 50 mls @ 200 mls/hr IVPB Q8H [facility] Last Admin: 10/25/18 09:56 Dose: 200 mls/hr Lactobacillus Rhamnosus (Lactobacillus Acidophilus*) 2 tab PO DAILY [facility] Last Admin: 10/25/18 10:18 Dose: 2 tab Metoprolol Tartrate (Lopressor Tab*) 12.5 mg PO Q12HR [facility] Last Admin: 10/25/18 10:17 Dose: 12.5 mg Morphine Sulfate (Morphine Vial*) 1 mg IV Q4H PRN PRN Reason: PAIN Last Admin: 10/24/18 23:56 Dose: 1 mg Ondansetron HCl (Zofran Inj*) 4 mg IV Q4H PRN PRN Reason: NAUSEA/VOMITING Last Admin: 10/22/18 09:21 Dose: 4 mg Vital Signs - 8 hr 10/25/18 10/25/18 10/25/18 08:00 11:07 15:17 Temperature 97.6 F 98.3 F Pulse Rate 73 79 Respiratory 20 24 18 Rate Blood Pressure 157/77 208/73 (mmHg) O2 Sat by Pulse 98 93 Oximetry 10/25/18 15:22 Temperature Pulse Rate Respiratory Rate Blood Pressure 172/84 (mmHg) O2 Sat by Pulse Oximetry Oxygen Devices in Use Now: Nasal Cannula Result Diagrams: 10/25/18 05:43 10/25/18 05:43 Microbiology and Other Data: Microbiology 10/21/18 14:45 Aerobic Blood Culture - Preliminary Blood Venous No Growth Day 3 Anaerobic Blood Culture - Preliminary No Growth Day 3 10/21/18 05:50 Urine Culture - Final Urine Proteus Mirabilis 10/21/18 17:37 Nasal Screen MRSA (PCR) - Final Nasal Mrsa Not Detected Assess/Plan/Problems-Billing Assessment: 10/21: -Presented w/fall w/altered MS -Found face down in vomit and minimally responsive and was found to have BO and elevated LFTs thought to be due to hypotension in severe sepsis -Central line placed and was placed on Levophed in ICU 10/22: Normal EEG 10/23: Levophed D/Cd and transfer to floors - Patient Problems (1) Sepsis due to urinary tract infection Current Visit: Yes Status: Acute Code(s): A41.9 - SEPSIS, UNSPECIFIED ORGANISM; N39.0 - URINARY TRACT INFECTION, SITE NOT SPECIFIED SNOMED Code(s): 791116784 Comment: -Due to P. mirabilis, sensitive to Cefazolin -Continue Cefazolin, Abx day #4/10 for complicated UTI -Continue Lactobacillus sup (2) Thrombocytopenia Current Visit: Yes Status: Acute Code(s): D69.6 - THROMBOCYTOPENIA, UNSPECIFIED SNOMED Code(s): 535918115 Comment: -Slightly improved -Likely due to sepsis given toxic vacuoles and Dohle bodies seen on smear -Given <50K, continue to hold off on pharmacologic prophylaxis at this time and place pt on SCD -Sent for Heparin PF4 Abs to eval for HIT, although this seems unlikely -Awaiting Nick test and haptoglobin levels, however, given PT/INR and PTT being close to NL along with high fibrinogen levels, unlikely due to DIC and move consistent w/thrombocytopenia due to severe sepsis (3) Elevated LFTs Current Visit: Yes Status: Acute Code(s): R94.5 - ABNORMAL RESULTS OF LIVER FUNCTION STUDIES SNOMED Code(s): 557900965 Comment: -Likely due to sepsis and hypotension earlier on in presentation -Continues improving -Liver U/S unremarkable and shows only cholelithiasis in GB -Sent for viral hepatitis screen (4) Seizure disorder Current Visit: Yes Status: Acute Code(s): G40.909 - EPILEPSY, UNSP, NOT INTRACTABLE, WITHOUT STATUS EPILEPTICUS SNOMED Code(s): 457366198 Comment: -Continue Levetiracetam (5) DVT prophylaxis Current Visit: No Status: Acute Code(s): VVR2002 - SNOMED Code(s): 490584256 Comment: -Hold off on pharmacologic prophylaxis given thrombocytopenia -Placed on SCDs Status and Disposition: -Continue PT and will await any further reccs on reassessment for any possible needs prior to D/C
[2018-10-26] MEDS ORDERED: hydrALAZINE IV* 20 MG/ML VIAL IV SLOW PU ONE (01:00)
[2018-10-26] MEDS: levETIRAcetam IV* 750 MG in NS 0.9% 100 ML* 100 ML IVPB SCH (03:05)
[2018-10-26 07:07] LABS: Hematocrit 31 % (35-47); Hemoglobin 10.5 g/dl (12.0-16.0); Mean Corpuscular HGB Conc 34 g/dl (31-36); Mean Corpuscular Hemoglobin 28 pg (27-31); Mean Corpuscular Volume 84 fL (80-97); Platelet Count 66 10^3/ul (150-450); Red Blood Count 3.68 10^6/ul (4.00-5.40); Red Cell Distribution Width 17 % (10.5-15); White Blood Count 7.1 10^3/ul (3.5-10.8)
[2018-10-26 07:16] LABS: Albumin 2.2 g/dL (3.2-5.2); Albumin/Globulin Ratio 0.9 (1-3); BUN/Creatinine Ratio 21.7 (8-20); Calcium 7.7 mg/dL (8.6-10.3); EGFR Non-African American 94.6 (>60); Globulin 2.4 g/dL (2-4); Magnesium 2.1 mg/dL (1.9-2.7); Phosphorus 2.1 mg/dL (2.5-5.0); Potassium 2.9 mmol/L (3.5-5.0); Total Bilirubin 0.8 mg/dL (0.2-1.0); Total Protein 4.6 g/dL (6.4-8.9)
[2018-10-26] MEDS: ceFAZolin 1 GM ADVAN(*) 1 GM in NS 0.9% 50 ML* 50 ML IVPB SCH (07:23)
[2018-10-26 08:04] VITALS: BP 178/92
[2018-10-26] MEDS: Famotidine SUSP* 40 MG/5 ML ORAL.SYRIN G TUBE SCH (09:58)
[2018-10-26] MEDS: Lactobacillus Acidophilus* 1 TAB PO SCH (09:58)
[2018-10-26] MEDS: Aspirin TAB* 325 MG PO SCH (09:59)
[2018-10-26] MEDS: Metoprolol Tartrate TAB* 25 MG PO SCH (09:59)
--- NOTE | 2018-10-26 12:31 | PN ---
Subjective Date of Service: 10/26/18 Interval History: Time spent on discharge including exam of patient, discussion with nurse, CM, review of EMR and preparation of discharge documents 45 minutes. Objective Active Medications: Aspirin (Aspirin Tab*) 325 mg PO DAILY [facility] Last Admin: 10/26/18 09:59 Dose: 325 mg Cefuroxime Axetil (Ceftin Tab(*)) 500 mg PO BID [facility] Hydroxyzine HCl (Atarax Tab*) 25 mg PO TID PRN PRN Reason: ITCHING Last Admin: 10/24/18 02:55 Dose: 25 mg Dextrose/Lactated Ringer's (D5lr 1000 Ml Bag*) 1,000 mls @ 75 mls/hr IV .PER RATE [facility] Last Admin: 10/25/18 06:40 Dose: 75 mls/hr Levetiracetam (Keppra Liq*) 250 mg PO BID [facility] Metoprolol Tartrate (Lopressor Tab*) 12.5 mg PO Q12HR [facility] Last Admin: 10/26/18 09:59 Dose: 12.5 mg Morphine Sulfate (Morphine Vial*) 1 mg IV Q4H PRN PRN Reason: PAIN Last Admin: 10/24/18 23:56 Dose: 1 mg Ondansetron HCl (Zofran Inj*) 4 mg IV Q4H PRN PRN Reason: NAUSEA/VOMITING Last Admin: 10/22/18 09:21 Dose: 4 mg Potassium Chloride (Klor Con Er Tab*) 20 meq PO BID [facility] Vital Signs - 8 hr 10/26/18 10/26/18 07:45 08:00 Temperature 99.0 F Pulse Rate 79 Respiratory 24 24 Rate Blood Pressure 178/92 (mmHg) O2 Sat by Pulse 95 Oximetry Oxygen Devices in Use Now: None Result Diagrams: 10/26/18 06:41 10/26/18 06:41 Microbiology and Other Data: Microbiology 10/21/18 14:45 Aerobic Blood Culture - Preliminary Blood Venous No Growth Day 3 Anaerobic Blood Culture - Preliminary No Growth Day 3 10/21/18 05:50 Urine Culture - Final Urine Proteus Mirabilis 10/21/18 17:37 Nasal Screen MRSA (PCR) - Final Nasal Mrsa Not Detected Assess/Plan/Problems-Billing Assessment: 10/21: -Presented w/fall w/altered MS -Found face down in vomit and minimally responsive and was found to have BO and elevated LFTs thought to be due to hypotension in severe sepsis -Central line placed and was placed on Levophed in ICU 10/22: Normal EEG 10/23: Levophed D/Cd and transfer to floors Status and Disposition: -Continue PT and will await any further reccs on reassessment for any possible needs prior to D/C
[2018-10-26] MEDS ORDERED: Potassium Chlor TAB* 10 MEQ TAB.ER PO SCH (13:00)
[2018-10-26 13:15] LABS: Haptoglobin 177 mg/dL (30 - 200)
--- NOTE | 2018-10-26 13:24 | TRS ---
TRANSFER SUMMARY: ADDENDUM: DISCHARGE MEDICATIONS: 1. Acetaminophen 650 mg every 4 hours p.r.n. 2. Docusate 100 mg b.i.d. 3. Fish oil 1000 mg daily. 4. Magnesium oxide 400 mg h.s. 5. Ferrous sulfate 325 mg daily. 6. Calcium carbonate 500 mg daily. 7. Aspirin 325 mg daily. 8. Ascorbic acid 500 daily. 9. Metoprolol tartrate 12.5 mg b.i.d. 10. Hydroxyzine 25 mg t.i.d. 11. Triamcinolone 0.1% b.i.d. to affected areas. 12. Glucosamine 1 capsule daily. CONDITION ON DISCHARGE: STABLE DISPOSITION ON DISCHARGE: TRANSFER TO [facility] [id number]/[facility] #: [id number] [facility]ENTER[facility]en
--- NOTE | 2018-10-26 18:49 | TRS ---
DISCHARGE SUMMARY: DATE OF ADMISSION: 10/21/18 DATE OF DISCHARGE: 10/26/18 HOSPITAL COURSE: This 87-year-old woman presented on transfer from [facility] with history of a fall and altered mental status. The patient did not recall what had happened. She was found on the ground, face down, having vomited. The patient in May was started on levetiracetam for seizure disorder. She has an old infarct. She was seen by Dr. Coyle in the office. She was complaining of fatigue, confusion. He decided to swi tch her to lamotrigine, which she was taking up until the time of this admission; however, she develo ped thrombocytopenia and elevated alkaline phosphatase. Whether she had a seizure or not is not comp letely clear. He felt that she should go back to now the levetiracetam as this will be the safest th ing as she may have had an allergic reaction to lamotrigine. The patient was found to have a UTI with a Proteus mirabilis, it is sensitive to cefazolin. She was given some piperacillin-tazobactam and some cefazolin. She will take 4 days of cefuroxime as an outp atient at [facility] to complete her treatment for UTI. She remains confused, weak and rather apathetic. I do note she was getting rather high dose of intra venous levetiracetam here in the hospital; she will switch to 250 mg b.i.d. of oral levetiracetam and hopefully this will be, over the next few days, she has some improvement in the mental status. She was also found to be hypokalemic and is getting potassium replacement. She should have her labs checked on Friday. If her potassium level is normal or high, consideration for reducing or stopping her potassium could be given. FINAL DIAGNOSES: 1. Sepsis due to urinary tract infection. 2. Seizure disorder. 3. Thrombocytopenia. 4. Elevated alkaline phosphatase. MEDICATIONS ON TRANSFER: Oxycodone...(dictation ends) [id number]/[facility] #: [id number]
[2018-10-26] MEDS ORDERED: levETIRAcetam LIQ* 500 MG/5 ML UDC PO SCH (21:00)
[2018-10-26] MEDS ORDERED: ceFUROXime TAB(*) 250 MG PO SCH (21:00)
[2018-10-28 18:30] LABS: HIT ELISA 0.498 OD (<0.400); Heparin PF4 Ab Inhibition 100 %
== END 2018-10-26 15:10 | DRG 853 ==
LOC: ED 03:58 → MED 06:08 → OBSVTOIN 15:34 → ICU 16:23 → MED 10-23 15:26
PROVIDERS: ADMIT Pediatrics; ATTEND Internal Medicine
PROC: 02H633Z Insertion of Infusion Device into Right Atrium, Percutaneous Approach (ICD-10-PCS; principal; 2018-10-21)
PROC: 0XQCXZZ Repair Left Elbow Region, External Approach (ICD-10-PCS; 2018-10-21)
PROC: B244ZZZ Ultrasonography of Right Heart (ICD-10-PCS; 2018-10-21)
PROC: 0HQGXZZ Repair Left Hand Skin, External Approach (ICD-10-PCS; 2018-10-21)
PROC: 3E033XZ Introduction of Vasopressor into Peripheral Vein, Percutaneous Approach (ICD-10-PCS; 2018-10-21)
PROC: 4A00X4Z Measurement of Central Nervous Electrical Activity, External Approach (ICD-10-PCS; 2018-10-21)
DX: A41.9 Sepsis, unspecified organism (principal); R65.21 Severe sepsis with septic shock; N17.9 Acute kidney failure, unspecified; N39.0 Urinary tract infection, site not specified; E87.2 Acidosis; G40.909 Epilepsy, unspecified, not intractable, without status epilepticus; I10 Essential (primary) hypertension; Z66 Do not resuscitate; R74.8 Abnormal levels of other serum enzymes; K21.9 Gastro-esophageal reflux disease without esophagitis; M19.90 Unspecified osteoarthritis, unspecified site; Z96.651 Presence of right artificial knee joint; Z96.641 Presence of right artificial hip joint; D69.6 Thrombocytopenia, unspecified; E87.6 Hypokalemia; Z79.82 Long term (current) use of aspirin; R09.02 Hypoxemia; B96.89 Other specified bacterial agents as the cause of diseases classified elsewhere; Z86.73 Personal history of transient ischemic attack (TIA), and cerebral infarction without residual deficits; Z90.710 Acquired absence of both cervix and uterus; Z91.81 History of falling; S61.412A Laceration without foreign body of left hand, initial encounter; X58.XXXA Exposure to other specified factors, initial encounter; Y92.9 Unspecified place or not applicable; S51.012A Laceration without foreign body of left elbow, initial encounter
CPT/HCPCS: 36415; 70450; 71045; 71046; 72125; 76705; 80048; 80053; 80074; 80175; 80177; 81003; 81015; 82248; 82550; 82947; 83010; 83605; 83615; 83735; 84100; 84484; 85025; 85027; 85060; 85384; 85610; 85730; 86022; 86038; 86705; 86709; 86803; 86880; 87040; 87077; 87086; 87184; 87186; 87641; 93005; 94640; 95816; 99285; A9270-GY; G8978-GP-CM; G8979-GP-CL; J0360; J0690; J0696; J1644; J1940; J2060; J2270; J2405; J2543; J3370; J3475

== ENCOUNTER 2019-01-29 18:59 | Inpatient (IN) | payer MEDICARE ==
--- NOTE | 2019-01-29 19:39 | ED ---
Head Injury - HPI Summary HPI Summary: An 88 y/o F presents to ED s/p fall with lacerations to scalp and LUE onset [employer]. Pt lives at [facility]. She says she itches a lot and was using the bathroom and went to scratch her bottom, and tipped right over onto her L side. She has a laceration to L hand and L elbow. Denies LOC, PALACIOS, nausea, confusion. Pt is also c/o abd pain described as cramps onset a few days ago. She had a similar episode of abd cramping approx 3 weeks ago and was treated with ABX. - History Of Current Complaint Chief Complaint: EDHeadInjury Stated Complaint: "FALL" PER EMS Time Seen by Provider: 01/29/19 19:32 Hx Obtained From: Patient, Family/Veneer Patcher Mechanism Of Injury: Fall From Height Of: - seated Onset/Duration: Traumatic - fall, Still Present Onset of Pain: Immediate, Post Accident Severity Currently: Mild Severity Initially: Mild Pain Intensity: 0 Pain Scale Used: 0-10 Numeric Associated Signs And Symptoms: Other: - Pos: abd cramping. Neg: LOC, PALACIOS, nausea , confusion - Allergies/Home Medications Allergies/Adverse Reactions: Allergies Allergy/AdvReac Type Severity Reaction Status Date / Time lamotrigine Allergy Severe See Comment Verified 10/26/18 15:34 PMH/Surg Hx/FS Hx/Imm Hx Previously Healthy: No Endocrine/Hematology History: Denies: Hx Diabetes Cardiovascular History: Denies: Hx Hypertension, Hx Pacemaker/ICD Respiratory History: Reports: Hx Asthma GI History: Reports: Hx Gastroesophageal Reflux Disease History: Denies: Hx Benign Prostatic Hyperplasia, Hx Chronic Renal Failure, Hx Dialysis, Hx Renal Disease Musculoskeletal History: Reports: Hx Arthritis, Hx Orthopedic Injury - R knee, Other Musculoskeletal History - R TKR Sensory History: Denies: Hx Contacts or Glasses, Hx Hearing Aid Opthamlomology History: Denies: Hx Contacts or Glasses Psychiatric History: Denies: Hx Attention Deficit Hyperactivity Disorder, Hx Panic Disorder - Surgical History Surgery Procedure, Year, and Place: TOTAL RT KNEE, 2002, [facility]. TOTAL RT HIP, [place], [place], unsure of year. RT FEMUR ORIF APRIL 2018. HYSTERECTOMY Hx Anesthesia Reactions: No Infectious Disease History: No Infectious Disease History: Denies: Traveled Outside the [place] in Last 30 Days - Family History Known Family History: Negative: Respiratory Disease, Seizure Disorder, Blood Disorder - Social History Occupation: Retired Lives: [facility] Alcohol Use: None Substance Use Type: Reports: None Smoking Status (MU): Never Smoked Tobacco Review of Systems Negative: Nausea Skin: Other - pos: lac to LUE and scalp Neurological: Other - neg: confusion, LOC Negative: Headache All Other Systems Reviewed And Are Negative: Yes Physical Exam - Summary Physical Exam Summary: Appearance: Elderly frail woman in no acute distress, lying in bed comfortably Skin: Warm, dry, no obvious rash. Skin tears on L elbow (2cm) and dorsum of L hand (6cm) Eyes: sclera anicteric, no conjunctival pallor ENT: mucous membranes moist, pharynx appears normal Head: linear abrasion on scalp, no active bleeding Neck: Supple, nontender Respiratory: Clear to auscultation, no signs of respiratory distress Cardiovascular: Normal S1, S2. No murmurs. Normal distal pulses in tibial and radial bilaterally. Abdomen: Soft, LLQ tenderness with mild guarding, normal active bowel sounds present Musculoskeletal: Normal, Strength/ROM Intact Neurological: A&Ox3, awake and alert, mentation is normal, speech is fluent and appropriate Psychiatric: affect is normal, does not appear anxious or depressed Triage Information Reviewed: Yes Vital Signs On Initial Exam: Initial Vitals Temp Pulse Resp BP Pulse Ox 99.3 F 74 18 173/64 95 01/29/19 19:18 01/29/19 19:18 01/29/19 19:18 01/29/19 19:18 01/29/19 19:18 Vital Signs Reviewed: Yes - [place] Coma Scale Best Eye Response: 4 - Spontaneous Best Motor Response: 6 - Obeys Commands Best Verbal Response: 5 - Oriented Coma Scale Total: 15 Diagnostics - Vital Signs Vital Signs Temp Pulse Resp BP Pulse Ox 01/29/19 19:18 99.3 F 74 18 173/64 95 - Laboratory Result Diagrams: 01/29/19 20:50 01/29/19 20:50 Lab Statement: Any lab studies that have been ordered have been reviewed, and results considered in the medical decision making process. - Radiology L elbow XR Radiology Interpretation Completed By: ED Physician Summary of Radiographic Findings: Negative. L hand XR Radiology Interpretation Completed By: ED Physician Summary of Radiographic Findings: Negative. - CT Brain CT CT Interpretation Completed By: Radiologist Summary of CT Findings: IMPRESSION: No acute intracranial pathology. ED provider has reviewed this report. A/P CT CT Interpretation Completed By: Radiologist Summary of CT Findings: IMPRESSION: 1. There is new very small right and small left pleural effusion and likely. associated dependent atelectasis. 2. There is small pericardial effusion. 3. Stable small hiatal hernia. 4. Stable calcified guerra of the gallbladder and stable likely cholelithiasis. 5. There is colonic diverticulosis as previously seen but on the current exam. there is abnormal wall thickening and significant fat stranding surrounding the sigmoid colon consistent with acute diverticulitis without visible abscess or signs of gross perforation. ED provider has reviewed this report. Re-Evaluation - Re-Evaluation 1 Re-Evaluation Time: 23:41 Change: Unchanged Comment: Discussing results and plans to admit. Head Injury Course/Dx Course Of Treatment: Pt is an 88 y/o F presenting s/p mechanical fall [facility], while seated on toilet, with lacerations to scalp, L antecubital elbow, 2cm, and dorsum of L hand, 6cm. Denies LOC, PALACIOS, nausea, confusion. Pt is also c/o abd pain described as cramps onset a few days ago. Hand and Elbow XRays are Negative. A/P CT shows "1. There is new very small right and small left pleural effusion and likely associated dependent atelectasis. 2. There is small pericardial effusion. 3. Stable small hiatal hernia. 4. Stable calcified guerra of the gallbladder and stable likely cholelithiasis. 5. There is colonic diverticulosis as previously seen but on the current exam there is abnormal wall thickening and significant fat stranding surrounding the sigmoid colon consistent with acute diverticulitis without visible abscess or signs of gross perforation.". Consulted with Dr. Lazaro, hospitalist, who will admit patient. - Diagnoses Provider Diagnoses: Acute diverticulitis of intestine, Fall, Avulsion of skin of hand, Avulsion of skin of left elbow - Physician Notifications Discussed Care Of Patient With: Annetta Lazaro - hospitalist Time Discussed With Above Provider: 23:35 Instructed by Provider To: Admit As Inpatient Discharge - Sign-Out/Discharge Documenting (check all that apply): Patient Departure - ADMIT Patient Received Moderate/Deep Sedation with Procedure: No - Discharge Plan Condition: Guarded Disposition: ADMITTED TO [facility] - Billing Disposition and Condition Condition: GUARDED Disposition: Admitted to [facility] - Attestation Statements Document Initiated by Jese: Yes Documenting Scribe: Jessee Leon Provider For Whom Jese is Documenting (Include Credential): Dr. Tez Godinez MD Scribe Attestation: Jessee Roberto scribed for Dr. Tez Godinez MD on 01/30/19 at 0349. Scribe Documentation Reviewed: Yes Provider Attestation: The documentation as recorded by the Jessee spain accurately reflects the service I personally performed and the decisions made by me, Dr. Tez Godinez MD Status of Scribe Document: Viewed
--- OUTSIDE RECORDS SUMMARY | 2019-01-29 19:40 | XMS REPORT | Continuity of Care Document ---
:1930 External Reference #:[id number] Author Name Ita Peck Care Team Providers Name Role Phone Lj Adam M.D. Care Team Information Flanging Roll Operator Unavailable Payers Date Identification Numbers Payment Provider Subscriber Policy Number: [id number] Medicare Majo Trujillo PayID: [id number] [address] [place] [address] Policy Number: [id number] [facility] Majo Trujillo PayID: [id number] [address] [place] [address] PayID: [id number] [facility] Majo Trujillo [address] [place] [address] Advance Directives Description No Information Available Problems [...] M.D. Active Family History Date Family Member(s) Observation Comments General Diabetes General Heart Disease General Cancer General Alzheimer's Disease Social History Type Date Description Comments Sex Unknown Lives With Alone Occupation Retired ETOH Use Denies alcohol use nothing to drink for past nine years Tobacco Use Start: Unknown Patient has never smoked Smoking Status Reviewed: 01/26/19 Patient has never smoked Exercise Type/Frequency Does not exercise Allergies, Adverse Reactions, Alerts Description No Known Drug Allergies Medications Medication Date Status Form Strength Qnty SIG Indications Ordering Provider Kepp 12/07/ Active Tablets 250mg 250mg po bid Meenu 2019 Letty Wright Multivitamin / Active Tablets 1 by mouth [...] every 8 hours as needed for itching Lopressor / Active Tablets 25mg take half a Unknown 0000 tab (12.5mg )by mouth twice a day Magnesium Oxide / Active Capsules 400mg 1 by mouth Unknown -MG Supplement 0000 every evening MSM-Glucosamine / Active Capsules 250-250mg 1 cap daily Unknown 0000 [place] 3 / Active Capsules 1000mg 1 by [...] Tablets 1 by mouth Unknown 0000 daily Zoloft / Active Tablets 25mg 1 by mouth Unknown 0000 every day Lamotrigine 09/28/ Hx Tablets 25mg 120ta 1 po qhs for G40.209 Jamarcus Meier 2018 - bs 1 wk then 1 Leonides, 12/07/ bid for 1 wk M.D. 2018 then 2 bid MSM-Glucosamine / Hx Capsules 250-250mg daily Unknown 0000 - 2017 Keppra / Hx Solution 100mg/ml give 2.5 Unknown 0000 - milliliters 10/19/ twice a day 2018 Immunizations Description No Information Available Vital Signs Date Vital Result Comment 01/26/2019 1:44pm Weight 100.00 lb Heart Rate 60 /min BP Systolic 100 mmHg BP Diastolic 60 mmHg 01/20/2019 9:43am BP Systolic 122 mmHg BP Diastolic 82 mmHg 12/07/2018 10:54am Weight 105.44 lb BP Systolic 130 mmHg BP Diastolic 70 mmHg 10/19/2018 3:37pm Weight 105.38 lb Heart Rate 78 /min BP Systolic 128 mmHg BP Diastolic 77 mmHg Respiratory Rate 18 /min O2 % BldC Oximetry 97 % 09/28/2018 3:57pm Height 59 inches 4'11" Weight [...] Temperature 98.1 F Pain Level 0 Results Test Date Facility Test Result H/L Range Note CBC Auto Diff 01/22/2019 [facility] White Blood 8.7 10^3/uL N 3.5-10.[address] [place] [address] [phone] Red Blood Count 3.52 10^6/uL Low 3.70-4.87 Hemoglobin 9.9 g/dL Low 12.0-16.0 Hematocrit 30 % Low 33-41 Mean Corpuscular Volume 86 fL N 80-97 Mean Corpuscular Hemoglobin 28 pg N 27-31 Mean Corpuscular HGB Conc 33 g/dL N 31-36 Red Cell Distribution Width 16 % High 10.5-15 Platelet Count 332 10^3/uL N 150-450 Mean Platelet Volume 8.6 fL N 7.4-10.4 Abs Neutrophils 5.7 10^3/uL N 1.5-7.7 Abs Lymphocytes 1.1 10^3/uL N 1.0-4.8 Abs Monocytes 0.8 10^3/uL N 0-0.8 Abs Eosinophils 1.0 10^3/uL High 0-0.6 Abs Basophils 0 10^3/uL N 0-0.2 Abs Nucleated RBC 0 10^3/uL Granulocyte % 65.7 % Lymphocyte % 12.4 % Monocyte % 9.5 % Eosinophil % 11.9 % Basophil % 0.5 % Nucleated Red Blood Cells % 0.1 Laboratory test 01/22/2019 [facility] C Reactive 110.53 mg/L High <8.[address] [place] [address] [phone] Urinalysis 01/21/2019 [facility] Urine Color Yellow [place] [address] [place] [address] [phone] Urine Appearance Cloudy Urine Specific [place] 1.018 N 1.010-1.030 Urine pH 5.0 N 5-9 Urine Urobilinogen Negative Negative Urine Ketones Trace Abnormal Negative Urine Protein Negative Negative Urine Leukocytes 3+ Abnormal Negative Urine Blood 1+ Abnormal Negative * * Abnormal Negative 3 Urine Nitrite Negative Negative Urine Bilirubin Negative Negative Urine Glucose Negative Negative Urine White Blood Cell 3+(>20/hpf) Abnormal Absent Urine Red Blood Cell 3+(>10/hpf) Abnormal Absent Urine Bacteria Absent Absent Urine Squamous Epithelial Cell Present Abnormal Absent Urine Hyaline Casts Present Abnormal Absent Urine Yeast Present Abnormal Absent Urine Culture And 01/21/2019 [facility] Urine Culture SEE RESULT [address] [place] [address] [phone] CBC Auto Diff 12/23/2018 [facility] White Blood 9.1 10^3/uL N 3.5-[address] Count [address] [place] [address] [phone] Red Blood Count 3.34 10^6/uL Low 4.00-5.40 Hemoglobin 9.3 g/dL Low 12.0-16.0 Hematocrit 28 % Low 35-47 Mean Corpuscular Volume 85 fL N 80-97 Mean Corpuscular Hemoglobin 28 pg N 27-31 Mean Corpuscular HGB Conc 33 g/dL N 31-36 Red Cell Distribution Width 15 % N 10.5-15 Platelet Count 378 10^3/uL N 150-450 Mean Platelet Volume 7.9 fL N 7.4-10.4 Abs Neutrophils 5.6 10^3/uL N 1.5-7.7 Abs Lymphocytes 1.1 10^3/uL N 1.0-4.8 Abs Monocytes 0.9 10^3/uL High 0-0.8 Abs Eosinophils 1.5 10^3/uL High 0-0.6 Abs Basophils 0 10^3/uL N 0-0.2 Abs Nucleated RBC 0 10^3/uL Granulocyte % 61.8 % Lymphocyte % 11.5 % Monocyte % 10.0 % Eosinophil % 16.4 % Basophil % 0.3 % Nucleated Red Blood Cells % 0 Comp Metabolic Panel 12/23/2018 [facility] Sodium 138 mmol/L N 135-[address] [place] [address] [phone] Potassium 4.1 mmol/L N 3.5-5.0 Chloride 105 mmol/L N 101-111 Co2 Carbon Dioxide 27 mmol/L N 22-32 Anion Gap 6 mmol/L N 2-11 Glucose 88 mg/dL N 70-100 Blood Urea Nitrogen 17 mg/dL N 6-24 Creatinine 0.64 mg/dL N 0.51-0.95 BUN/Creatinine Ratio 26.6 High 8-20 Calcium 8.4 mg/dL Low 8.6-10.3 Total Protein 5.1 g/dL Low 6.4-8.9 Albumin 2.5 g/dL Low 3.2-5.2 Globulin 2.6 g/dL N 2-4 Albumin/Globulin Ratio 1.0 N 1-3 Total Bilirubin 0.40 mg/dL N 0.2-1.0 Alkaline Phosphatase 62 U/L N 34-104 Alt 7 U/L N 7-52 Ast 10 U/L Low 13-39 Egfr Non- 87.6 >60 Egfr 106.0 >60 6 Laboratory test finding 12/23/2018 [facility] Amylase 23 U/L Low 29-103 7 [address] [place] [address] [phone] Lipase 17 U/L N 11.0-82.0 8 C Reactive Protein 149.52 mg/L High <8.01 9 Urinalysis Profile 12/20/2018 [facility] Urine Color Yareli [address] [place] [address] [phone] Urine Appearance Cloudy Urine Specific [place] 1.028 N 1.010-1.030 Urine pH 5.0 N 5-9 Urine Urobilinogen Negative Negative Urine Ketones Trace Abnormal Negative Urine Protein Negative Negative Urine Leukocytes Negative Negative Urine Blood Negative Negative Urine Nitrite Negative Negative Urine Bilirubin Negative Negative Urine Glucose Negative Negative Laboratory 11/09/2018 [facility] TSH (Thyroid 2.34 N 0.34- 5.60 10, 11 test finding [address] [place] [address] Stim Horm) mcIU/[place] [address] [phone] Basic 11/09/2018 [facility] Sodium 138 mmol/L N 135-[address] [place] [address] [phone] Potassium 3.9 mmol/L N 3.5-5.0 Chloride 103 mmol/L N 101-111 Co2 Carbon Dioxide 27 mmol/L N 22-32 Anion Gap 8 mmol/L N 2-11 Glucose 73 mg/dL N 70-100 Blood Urea Nitrogen 9 mg/dL N 6-24 Creatinine 0.49 mg/dL Low 0.51-0.95 BUN/Creatinine Ratio 18.4 N 8-20 Calcium 7.6 mg/dL Low 8.6-10.3 Egfr Non- 119.5 >60 Egfr 144.5 >60 12 CBC Auto Diff 11/09/2018 [facility] White Blood 4.3 10^3/uL N 3.5-10.[address] [place] [address] [phone] Red Blood Count 3.73 10^6/uL Low 4.00-5.40 Hemoglobin 10.7 g/dL Low 12.0-16.0 Hematocrit 33 % Low 35-47 Mean Corpuscular Volume 88 fL N 80-97 Mean Corpuscular Hemoglobin 29 pg N 27-31 Mean Corpuscular HGB Conc 33 g/dL N 31-36 Red Cell Distribution Width 16 % High 10.5-15 Platelet Count 366 10^3/uL N 150-450 Mean Platelet Volume 8.2 fL N 7.4-10.4 Abs Neutrophils 2.0 10^3/uL N 1.5-7.7 Abs Lymphocytes 1.1 10^3/uL N 1.0-4.8 Abs Monocytes 0.5 10^3/uL N 0-0.8 Abs Eosinophils 0.8 10^3/uL High 0-0.6 Abs Basophils 0 10^3/uL N 0-0.2 Abs Nucleated RBC 0 10^3/uL Granulocyte % 45.4 % Lymphocyte % 24.5 % Monocyte % 10.5 % Eosinophil % 19.1 % Basophil % 0.5 % Nucleated Red Blood Cells % 0 CBC Auto Diff 10/30/2018 [facility] White Blood 6.3 10^3/uL N 3.5-10.[address] [place] [address] [phone] Red Blood Count 3.15 10^6/uL Low 4.00-5.40 Hemoglobin 9.1 g/dL Low 12.0-16.0 Hematocrit 27 % Low 35-47 Mean Corpuscular Volume 86 fL N 80-97 Mean Corpuscular Hemoglobin 29 pg N 27-31 Mean Corpuscular HGB Conc 33 g/dL N 31-36 Red Cell Distribution Width 16 % High 10.5-15 Platelet Count 280 10^3/uL N 150-450 Mean Platelet Volume 8.6 fL N 7.4-10.4 Abs Neutrophils 4.1 10^3/uL N 1.5-7.7 Abs Lymphocytes 1.0 10^3/uL N 1.0-4.8 Abs Monocytes 0.5 10^3/uL N 0-0.8 Abs Eosinophils 0.7 10^3/uL High 0-0.6 Abs Basophils 0 10^3/uL N 0-0.2 Abs Nucleated RBC 0 10^3/uL Granulocyte % 64.9 % Lymphocyte % 15.9 % Monocyte % 7.4 % Eosinophil % 11.3 % Basophil % 0.5 % Nucleated Red Blood Cells % 0 Comp Metabolic Panel 10/30/2018 [facility] Sodium 140 mmol/L N 135-[address] [place] [address] [phone] Potassium 3.8 mmol/L N 3.5-5.0 Chloride 107 mmol/L N 101-111 Co2 Carbon Dioxide 25 mmol/L N 22-32 Anion Gap 8 mmol/L N 2-11 Glucose 67 mg/dL Low 70-100 Blood Urea Nitrogen 14 mg/dL N 6-24 Creatinine 0.50 mg/dL Low 0.51-0.95 BUN/Creatinine Ratio 28.0 High 8-20 Calcium 7.3 mg/dL Low 8.6-10.3 Total Protein 3.7 g/dL Low 6.4-8.9 Albumin 1.9 g/dL Low 3.2-5.2 Globulin 1.8 g/dL Low 2-4 Albumin/Globulin Ratio 1.1 N 1-3 Total Bilirubin 0.50 mg/dL N 0.2-1.0 Alkaline Phosphatase 152 U/L High 34-104 Alt 9 U/L N 7-52 Ast 18 U/L N 13-39 Egfr Non- 116.7 >60 Egfr 141.2 >60 14 1 [facility] ,1 Room Number 130 2 [facility] ,1 Room Number 130 3 *Ascorbic acid is present which may interfere with detection of blood. 4 SEE RESULT BELOW Name: MAJO TRUJILLO : [address]: Meenu Wright DO Acct: [id number] Unit: [id number] AGE: 88 Location: [facility] Re01/21/19 SEX: F Status: REG REF SPEC: [id number] MITESH: 01/21/19-[address]: Meenu Wright DO REQ: [id number] RECD: 01/21/19 STATUS: GABRIELA COREAS DR: Leonela Nathan _ SOURCE: URINE SPDESC: ORDERED: Urine Culture Procedure Result Reported Site Urine Culture Final 01/22/19- 1211 ML No Growth (<1,000 CFU/mL) * - Main Lab . END OF REPORT DEPARTMENT OF PATHOLOGY, [address] [place] [address] Kyaw Ding M.D. Director [facility] # [id number] 5 [facility], Room Number 344 [id number] 6 Because ethnic data is not always readily available, this report includes an eGFR for both -Americans and non- Americans. The National Kidney Disease Education Program (NKDEP) does not endorse the use of the MDRD equation for patients that are not between the ages of 18 and 70, are , have extremes of body size, muscle mass, or nutritional status, or are non- or non-. According to the National Kidney Foundation, irrespective of diagnosis, the stage of the disease is based on the level of kidney function: Stage Description GFR(mL/min/1.73 m(2)) 1 Kidney damage with normal or decreased GFR 90 2 Kidney damage with mild decrease in GFR 60-89 3 Moderate decrease in GFR 30-59 4 Severe decrease in GFR 15-29 5 Kidney failure <15 (or dialysis) 7 [facility], Room Number 344 [id number] 8 [facility], Room Number 344 [id number] 9 [facility], Room Number 344 [id number] 10 [facility], Room Number 344 [id number] 11 [facility], Room Number 344 [id number] 12 Because ethnic data is not always readily available, this report includes an eGFR for both -Americans and non- Americans. The National Kidney Disease Education Program (NKDEP) does not endorse the use of the MDRD equation for patients that are not between the ages of 18 and 70, are , have extremes of body size, muscle mass, or nutritional status, or are non- or non-. According to the National Kidney Foundation, irrespective of diagnosis, the stage of the disease is based on the level of kidney function: Stage Description GFR(mL/min/1.73 m(2)) 1 Kidney damage with normal or decreased GFR 90 2 Kidney damage with mild decrease in GFR 60-89 3 Moderate decrease in GFR 30-59 4 Severe decrease in GFR 15-29 5 Kidney failure <15 (or dialysis) 13 [facility], Room Number 344 14 Because ethnic data is not always readily available, this report includes an eGFR for both -Americans and non- Americans. The National Kidney Disease Education Program (NKDEP) does not endorse the use of the MDRD equation for patients that are not between the ages of 18 and 70, are , have extremes of body size, muscle mass, or nutritional status, or are non- or non-. According to the National Kidney Foundation, irrespective of diagnosis, the stage of the disease is based on the level of kidney function: Stage Description GFR(mL/min/1.73 m(2)) 1 Kidney damage with normal or decreased GFR 90 2 Kidney damage with mild decrease in GFR 60-89 3 Moderate decrease in GFR 30-59 4 Severe decrease in GFR 15-29 5 Kidney failure <15 (or dialysis) Procedures Date Code Description Status 10/21/2018 27786 EEG Recording Awake & Drowsy Completed 10/21/2018 98387 EKG, Interpretation Only Completed 10/21/2018 98350 Ultrasound Guidance For Vascular Access Completed 10/21/2018 28643 Insertion Peripherally Central Venous Catheter W/O Sub Completed PRT/PM 5>Y 05/28/2018 22849 Holter Monitor Review (24 hr)dr review & interp only Completed 05/26/2018 07635 EEG Recording Awake & Asleep Completed 04/20/2018 70989 ECHO Transthorasic Realtime 2D W Doppler & Color Flow Hosp Completed 04/20/2018 16764 FX Femur Supra/Transcondylar Open TX W/Wo Fixation Completed 04/20/2018 82454 FX Femur Supra/Transcondylar Open TX W/Wo Fixation Completed Encounters Type Date Location Provider Dx Diagnosis Office Visit 01/20/2019 [facility] Meenu Wright, R10.84 Generalized 8:00a D.O. abdominal pain G40.909 Epilepsy, unsp, not intractable, without status epilepticus I10 Essential (primary) hypertension F41.9 Anxiety disorder, unspecified M62.81 Muscle weakness (generalized) Z66 Do not resuscitate Office Visit 12/21/2018 9:30a [facility] Marcy Sinclair, K57.12 Dvtrcli of sm int [employer] w/o perforation or abscess w/o bleeding Office Visit 12/07/2018 8:30a [facility] Meenu Wright, G40.909 Epilepsy, unsp, D.O. not intractable, without status epilepticus I10 Essential (primary) hypertension F41.9 Anxiety disorder, unspecified M62.81 Muscle weakness (generalized) Z66 Do not resuscitate Office Visit 11/05/2018 8:45a [facility] Anabel Zhao R21 Rash and other [place], [employer] nonspecific skin eruption R22.31 Localized swelling, mass and lump, right upper limb Z78.9 Other specified health status Office Visit 10/30/2018 11:15a [facility] Valerie G40.909 Epilepsy, unsp, MD José Luis not intractable, without status epilepticus I10 Essential (primary) hypertension D64.9 Anemia, unspecified M62.81 Muscle weakness (generalized) Z96.651 Presence of right artificial knee joint Z47.1 Aftercare following joint replacement surgery Office Visit 10/28/2018 8:30a [facility] Anabel Zhao R22.31 Localized [place], [employer] swelling, mass and lump, right upper limb Z78.9 Other specified health status Office Visit 10/26/2018 [facility] Misbah Dior, R41.82 Altered mental 8:52a Assocpan M.D. status, Hospitalists unspecified Office Visit 10/25/2018 [facility] Aldair Guerrero A41.89 Other specified 8:52a Assoc,pan Stein MD sepsis Hospitalists B96.4 Proteus (mirabilis) (morganii) causing dis classd elswhr N39.0 Urinary tract infection, site not specified D69.6 Thrombocytopenia, unspecified Office Visit 10/24/2018 8:51a [facility] Aldair Guerrero A41.89 Other specified Assoc,pan Stein MD sepsis Hospitalists B96.4 Proteus (mirabilis) (morganii) causing dis classd elswhr D69.6 Thrombocytopenia, unspecified G40.909 Epilepsy, unsp, not intractable, without status epilepticus Office Visit 10/23/2018 8:50a Intensivists Vishnu Ruiz, N39.0 Urinary tract M.D. infection, site not specified Office Visit 10/22/2018 8:50a Intensivists Vishnu Ruiz, R65.21 Severe sepsis with M.D. septic shock D69.6 Thrombocytopenia, unspecified N39.0 Urinary tract infection, site not specified A41.9 Sepsis, unspecified organism Office Visit 10/21/2018 7:00a [facility] Jamarcus Meier R55 Syncope and Marleny Coyle collapse G40.909 Epilepsy, unsp, not intractable, without status epilepticus R74.8 Abnormal levels of other serum enzymes Office Visit 10/21/2018 8:50a [facility] Noemi R41.82 Altered mental Assoc, Rooth, DO status, Hospitalists unspecified N17.9 Acute kidney failure, unspecified Office Visit 10/21/2018 8:49a Intensivists Vishnu Ruiz, I95.9 Hypotension , M.D. unspecified E87.2 Acidosis Office Visit 10/19/2018 10:15a [facility] Meenu Wright G40.209 Local- rel symptc D.O. epi w cmplx prt seiz,not ntrct,w/o stat epi I47.1 Supraventricular tachycardia I10 Essential (primary) hypertension Office Visit 09/28/2018 3:15p [facility] Jamarcus Meier G40.209 Local- rel Services Of Wilian Coyle M.D. symptc epi w cmplx prt seiz,not ntrct,w/o stat epi R55 Syncope and collapse I69.398 Other sequelae of cerebral infarction Office Visit 09/11/2018 9:15a [facility] Valerie G40.909 Epilepsy, unsp, MD José Luis not intractable, without status epilepticus R21 Rash and other nonspecific skin eruption I10 Essential (primary) hypertension I47.1 Supraventricular tachycardia Office Visit 09/03/2018 8:45a [facility] Anabel Zhao R21 Rash and other [place], [employer] nonspecific skin eruption M17.12 Unilateral primary osteoarthritis, left knee Z78.9 Other specified health status Office Visit 08/26/2018 10:00a Orthopedic Sebastian M97.01xD Periprosth Services Of Marleny Beasley fracture around C.M.A. 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 fracture around internal prosth r hip jt, subs G40.909 Epilepsy, unsp, not intractable, without status epilepticus I10 Essential (primary) hypertension R21 Rash and other nonspecific skin eruption [facility] M25.431 Effusion, right 8:15a IVETTE Sinclair wrist Office Visit 07/22/2018 Orthopedic Sebastian Beasley, M97.01xD Periprosth 2:30p Services Of Marleny fracture around C.M.A. internal prosth r hip jt, subs Office Visit 06/29/2018 [facility] Marcy R21 Rash and other 9:30a Yahir, [employer] nonspecific skin eruption Office Visit 06/11/2018 [facility] Meenu Wright, G40.909 Epilepsy, unsp, 11:30a D.O. not intractable, without status epilepticus I47.1 Supraventricular tachycardia I10 Essential (primary) hypertension M97.01xD Periprosth fracture around internal prosth r hip jt, subs Office 05/27/2018 [facility] R94.01 Abnormal Visit 7:00a Eric Mike MD electroencephalogram [EEG] R47.81 Slurred speech M62.81 Muscle weakness (generalized) I67.82 Cerebral ischemia Office Visit 05/27/2018 [facility] Gisel I69.398 Other sequelae 10:58a Assoc,pan Vides, of cerebral Hospitalists [employer] infarction I10 Essential (primary) hypertension G93.49 Other encephalopathy S72.491A Oth fracture of lower end of right femur, init for clos fx Office Visit 05/26/2018 7:00a [facility] Eric Mike, R47.81 Domenicourred speech M62.81 Muscle weakness (generalized) I67.82 Cerebral ischemia Office Visit 05/26/2018 [facility] I69.398 Other sequelae 10:57a Assoc,pc [place] Vides, of cerebral Hospitalists [employer] infarction G93.49 Other encephalopathy I10 Essential (primary) hypertension Office Visit 05/25/2018 10:57a [facility] Jason Kang MD R55 Syncope and Assoc,pc Hospitalists collapse I69.398 Other sequelae of cerebral infarction G93.49 Other encephalopathy I10 Essential (primary) hypertension S72.491A Oth fracture of lower end of right femur, init for clos fx Office Visit 05/25/2018 7:00a [facility] Kush Mike, R47.81 Slurred MD speech M62.81 Muscle weakness (generalized) I67.82 Cerebral ischemia 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 Office Visit 04/27/2018 9:00a [facility] Marcy Mathiasvinnie, Z47.1 Aftercare [employer] following joint replacement surgery M97.01xA Periprosth fracture around internal prosth r hip jt, init D64.9 Anemia, unspecified Office Visit 04/23/2018 8:10a [facility] E86.0 Dehydration Assoc,pc Doto, [employer] Hospitalists D64.9 Anemia, unspecified Office Visit 04/22/2018 8:09a [facility] E86.0 Dehydration Assoc,pc [place], [employer] Hospitalists D64.9 Anemia, unspecified Office Visit 04/21/2018 8:09a [facility] E86.0 Dehydration Assoc,pc [place], [employer] Hospitalists D64.9 Anemia, unspecified Office Visit 04/20/2018 8:08a [facility] Shay, E86.0 Dehydration Assoc,pc PA Hospitalists D64.9 Anemia, unspecified Office Visit 04/19/2018 8:07a [facility] E86.0 Dehydration Assoc,pc [place], [employer] Hospitalists D64.9 Anemia, unspecified Z86.73 Prsnl hx of TIA (TIA), and cereb infrc w/o resid deficits Office Visit 04/19/2018 Orthopedic Sebastian Beasley, M97.01xA Periprosth 11:44a Services Of Lyric Farmer fracture around internal prosth r hip jt, init Office Visit 04/18/2018 [facility] Sydney Castillo, Z86.73 Prsnl hx of TIA 8:06a pan Red M.D. (TIA), and Hospitalists cereb infrc w/o resid deficits S72.491A Oth fracture of lower end of right femur, init for clos fx Office Visit 04/18/2018 Orthopedic Natalie S72.491A Oth fracture of 9:47a Services Of Marleny Villafuerte lower end of C.M.A. right femur, init for clos fx Office Visit 12/08/2017 Orthopedic Lj Adam, M17.12 Unilateral 1:30p Services Of Marleny primary C.M.ATomeka osteoarthritis, left knee Plan of Treatment Future Appointment(s):08/10/2019 1:30 pm - Jamarcus Coyle M.D. at [facility]01/26/2019 - Jamarcus Coyle M.D.G40.909 Epilepsy, unspecified, not intractable, without status epileFollow up:6 NAIYQHP72.398 Other sequelae of cerebral infarction
[2019-01-29 20:57] LABS: ABS Basophils 0.1 10^3/ul (0-0.2); ABS Eosinophils 0.4 10^3/ul (0-0.6); ABS Monocytes 0.7 10^3/ul (0-0.8); ABS Neutrophils 10.3 10^3/ul (1.5-7.7); ABS Nucleated RBC 0 10^3/ul; Eosinophil % 3.2 %; Hematocrit 33 % (33-41); Hemoglobin 10.9 g/dL (12.0-16.0); Lymphocyte % 8.3 %; Mean Corpuscular HGB Conc 33 g/dL (31-36); Mean Corpuscular Hemoglobin 28 pg (27-31); Mean Corpuscular Volume 85 fL (80-97); Mean Platelet Volume 7.7 fL (7.4-10.4); Nucleated Red Blood Cells % 0; Platelet Count 384 10^3/uL (150-450); Red Blood Count 3.89 10^6 /uL (3.70-4.87); Red Cell Distribution Width 16 % (10.5-15); White Blood Count 12.4 10^3/uL (3.5-10.8)
[2019-01-29 21:18] LABS: Albumin 3.2 g/dL (3.2-5.2); Albumin/Globulin Ratio 0.9 (1-3); C Reactive Protein 175.87 mg/L (<8.01); Calcium 8.8 mg/dL (8.6-10.3); EGFR Non-African American 87.6 (>60); Globulin 3.4 g/dL (2-4); Potassium 4.5 mmol/L (3.5-5.0); Total Bilirubin 0.6 mg/dL (0.2-1.0); Total Protein 6.6 g/dL (6.4-8.9)
[2019-01-29] MEDS ORDERED: Iohexol 300* (CONTRAST) 10 ML SDV IV ONE (21:22)
[2019-01-29] MEDS ORDERED: ED Piperacillin/Tazobac 3.375 3.375 GM/100 ML PREMIX.SET IVPB ONE (23:39)
[2019-01-30] MEDS ORDERED: Al Hydrox/Mg Hydrox/Simet LIQ* 30 ML UDC PO PRN (01:30)
[2019-01-30] MEDS ORDERED: oxyCODONE TAB* 5 MG TAB PO PRN (01:30)
[2019-01-30] MEDS ORDERED: Piperacillin/Tazobac ADVAN(*) 3.375 GM in NS 0.9% 100 ML* 100 ML IVPB ONE (01:32)
[2019-01-30] MEDS ORDERED: PROCHLORPERAZINE INJ 5 MG/ML 2 ML VIAL IV PRN (01:32)
[2019-01-30] MEDS ORDERED: Zosyn per Pharmacy* NOTE FOLLOW UP SCH (02:00)
--- NOTE | 2019-01-30 03:46 | HP ---
CC: Dr. Meenu Wright at [facility].* HISTORY AND PHYSICAL: DATE OF ADMISSION: 01/30/19 TIME OF EVALUATION: 1:15 a.m. PRIMARY CARE PROVIDER: Dr. Meenu Wright at [facility]. CHIEF COMPLAINT: "I fell." HISTORY OF PRESENT ILLNESS: Ms. Pickett is an 88-year-old lady with a past medical history of prior CVAs, seizure disorder, hypertension, who presents to the emergency room after sustaining a fall at [facility]. The patient states that she was in the toilet and she leaned forward trying to scratch an itch and she lost her balance and fell on her side. She hit her head on the floor and also sustained a skin tear to her left upper extremity. When she was evaluated by the emergency room, the patient also complained of abdominal pain that has been happening on and off for "some time." The workup in the emergency room revealed diverticulitis and for that reason the hospitalist service was consulted for admission. The patient denies nausea, vomiting, diarrhea, chest pain, palpitations, shortness of breath or urinary complaints. PAST MEDICAL HISTORY: 1. CVA of the right parietal region in 1994. 2. Seizure disorder. 3. 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 4. Depression. 5. Hypertension. 6. Status post ORIF of distal femur. MEDICATION LIST: As per our [facility] records. 1. Acetaminophen 650 mg p.o. q.4 hours p.r.n. pain or fever. 2. Maalox Plus 30 mL p.o. q.6 hours p.r.n. indigestion. 3. Vitamin C 500 mg p.o. daily. 4. Aspirin 325 mg p.o. daily. 5. Calcium carbonate 500 mg p.o. at bedtime. 6. Colace 100 mg p.o. b.i.d. 7. Ferrous sulfate 325 mg p.o. daily. 8. Glucosamine 1 capsule p.o. daily. 9. Keppra 250 mg p.o. b.i.d. 10. Magnesium oxide 400 mg p.o. at bedtime. 11. Metoprolol tartrate 12.5 mg p.o. q.12 hours. 12. Fish oil 1000 mg p.o. daily. 13. Ondansetron ODT 4 mg p.o. q.6 hours p.r.n. nausea. 14. Oxycodone 5 mg p.o. q.6 hours p.r.n. pain. 15. Potassium chloride 10 mEq p.o. b.i.d. 16. Sertraline 25 mg p.o. daily. ALLERGIES: With LAMOTRIGINE, the patient had thrombocytopenia and alk phos elevation. FAMILY HISTORY: Her mother passed of breast cancer at age 96, and father age 62 of a heart attack. SOCIAL HISTORY: There is no history of tobacco, alcohol or drug use. She was a homemaker and now resides at [facility]. Surrogate decision maker is her daughter, Galina Sanders, phone number is [phone]. REVIEW OF SYSTEMS: A 14-point review of systems was performed and all the pertinent negatives and positives are in the HPI. PHYSICAL EXAMINATION GENERAL: The patient is a pleasant elderly lady lying in the ED stretcher, in no acute distress. VITAL SIGNS: Temperature 99.0, heart rate is 70, respiratory rate is 16, oxygen saturation is 96% on room air, blood pressure is 158/74. HEENT: Pupils are equal. Moist mucous membranes. CHEST: Breath sounds bilaterally with no added sounds. CVS: Normal S1, S2. Regular rate and rhythm. ABDOMEN: Soft with left lower quadrant tenderness. No guarding. No rebound. Bowel sounds are present. EXTREMITIES: There is no edema. NEUROLOGIC: The patient is alert and oriented x3. Able to move all 4 extremities. SKIN: The patient has skin tears on her left upper extremity, they are now covered with a clean dressing intact. LABORATORY AND IMAGING DATA: The patient had a CBC that showed WBC of 12.4, hemoglobin of 10.9, hematocrit of 33, platelets of 384,000. Chemistry showed a sodium of 134, potassium of 4.5, chloride 102, bicarb 22, BUN of 16, creatinine of 0.64, glucose of 96. LFTs are normal. CRP is 175. CT of the brain without contrast showed no acute intracranial abnormality. CT of the abdomen and pelvis showed new very small right and small left pleural effusion, and likely associated dependent atelectasis. Small pericardial effusion stable with small hiatal hernia, stable calcified guerra of the gallbladder and stable likely cholelithiasis. There is colonic diverticulosis as previously seen and in the current exam there is abnormal wall thickening and significant fat stranding surrounding the sigmoid colon consistent with acute diverticulitis without visible abscess or signs of gross perforation. Her left hand x-ray has not been officially read yet. To my read, there is osteoarthritis. I do not see any gross fractures, but we will follow the official report. Her left elbow x-ray as well has not yet been officially read, but to my read I do not see any gross fractures and will follow up the official report as well. ASSESSMENT AND PLAN: Ms. Pickett is an 88-year-old lady with a past medical history of cerebrovascular accident, seizure disorder, hypertension, depression who presented to the emergency room after sustaining a fall, but also complaining of abdominal pain, found to have diverticulitis. 1. Sigmoid diverticulitis. The patient does not have signs of sepsis at this time. She will be admitted to the medical floor and she will be treated with Zosyn. She received pain medication as needed and she will be on a low fiber diet. 2. Status post fall. The patient's CT of the head was negative for bleed and my preliminary read of her left hand and elbow x-rays is that there are no fractures, but the official results will be followed. We will continue to protect her skin lacerations. 3. Depression. Continue Zoloft. 4. History of cerebrovascular accident. Continue aspirin. 5. Seizure disorder. Continue Keppra. 6. DVT prophylaxis. The patient has a score of 3 on the DVT Prophylaxis Risk Assessment Guide and she will be started on subcutaneous heparin. 7. Code status. The patient has a MOLST form indicating that she wants to be a do not resuscitate/do not intubate. TIME SPENT: Approximately 50 minutes were spent with patient interview, medical records review, physical examination to complete this admission, more than half of this time was spent [id number] with the patient in coordination of care. [id number]/[facility] #: [id number] PATRIC
[2019-01-30 06:11] LABS: ABS Basophils 0.1 10^3/ul (0-0.2); ABS Eosinophils 0.7 10^3/ul (0-0.6); ABS Lymphocytes 1.1 10^3/ul (1.0-4.8); ABS Monocytes 0.9 10^3/ul (0-0.8); ABS Nucleated RBC 0 10^3/ul; Eosinophil % 6.7 %; Hematocrit 29 % (33-41); Hemoglobin 9.7 g/dL (12.0-16.0); Lymphocyte % 11.2 %; Mean Corpuscular HGB Conc 33 g/dL (31-36); Mean Corpuscular Hemoglobin 28 pg (27-31); Mean Corpuscular Volume 85 fL (80-97); Mean Platelet Volume 8.1 fL (7.4-10.4); Nucleated Red Blood Cells % 0; Platelet Count 348 10^3/uL (150-450); Red Blood Count 3.41 10^6 /uL (3.70-4.87); Red Cell Distribution Width 16 % (10.5-15); White Blood Count 9.8 10^3/uL (3.5-10.8)
[2019-01-30] MEDS: Heparin VIAL(*) 5000 UNITS/ML VIAL (FIVE THOUSAND) SUBCUT SCH ×3 (06:18→22:24)
[2019-01-30] MEDS: ZOSYN 3.375 GM Q8H per EXTENDED INFUSION IVPB SCH ×6 (06:19→22:18)
[2019-01-30 06:30] LABS: BUN/Creatinine Ratio 21.3 (8-20); Calcium 8.4 mg/dL (8.6-10.3); EGFR Non-African American 92.6 (>60); Potassium 4.1 mmol/L (3.5-5.0)
[2019-01-30] MEDS: levETIRAcetam TAB* 500 MG PO SCH ×2 (08:56→22:24)
[2019-01-30] MEDS: Docusate CAP* 100 MG PO SCH ×2 (08:56→22:24)
[2019-01-30] MEDS: Potassium Chlor TAB* 10 MEQ TAB.ER PO SCH ×2 (08:56→22:24)
[2019-01-30] MEDS: Sertraline* 25 MG TAB PO SCH (08:56)
[2019-01-30] MEDS: Aspirin TAB* 325 MG PO SCH (08:56)
[2019-01-30] MEDS: Ascorbic Acid TAB* 500 MG PO SCH (08:56)
[2019-01-30] MEDS: Metoprolol Tartrate TAB* 25 MG PO SCH ×2 (08:57→22:24)
[2019-01-30] MEDS: Ferrous Sulfate TAB* 325 MG PO SCH (09:15)
--- NOTE | 2019-01-30 16:49 | PN ---
Subjective Date of Service: 01/30/19 Interval History: Ms. Pickett is feeling better today. She is not having any pain in her left arm. Denies CP, SOB, N/V, dizziness, headaches. No abd pain and has been tolerating her diet. No concerns or complaints from nursing. Family History: Unchanged from Admission Social History: Unchanged from Admission Past Medical History: Unchanged from Admission Objective Active Medications: Acetaminophen (Tylenol Tab*) 650 mg PO Q4H PRN FEVER/PAIN Al Hydrox/Mg Hydrox/Simethicone (Maalox Plus*) 30 ml PO Q6H PRN INDIGESTION Ascorbic Acid (Vitamin C Tab*) 500 mg PO DAILY [facility] Aspirin (Aspirin Tab*) 325 mg PO DAILY [facility] Calcium Carbonate (Calcium Carbonate Tab*) 1,250 mg PO QPM [facility] Docusate Sodium (Colace Cap*) 100 mg PO BID [facility] Ferrous Sulfate (Ferrous Sulfate Tab*) 325 mg PO DAILY [facility] Heparin Sodium (Porcine) (Heparin Vial(*)) 5,000 units SUBCUT Q8HR [facility] Piperacillin Sod/Tazobactam (Sod 3.375 gm/ Sodium Chloride) 100 mls @ 25 mls/ hr IVPB Q8H [facility] Levetiracetam (Keppra Tab*) 250 mg PO BID [facility] Magnesium Oxide (Magox 400 Tab*) 400 mg PO QPM [facility] Metoprolol Tartrate (Lopressor Tab*) 12.5 mg PO Q12HR [facility] Oxycodone HCl (Roxycodone Tab*) 5 mg PO Q6H PRN PAIN Potassium Chloride (Klor Con Er Tab*) 10 meq PO BID [facility] Prochlorperazine Edisylate (Compazine Inj*) 5 mg IV Q6H PRN NAUSEA/VOMITING Sertraline HCl (Zoloft*) 25 mg PO DAILY [facility] Vital Signs - 8 hr 01/30/19 01/30/19 01/30/19 09:00 11:12 11:13 Temperature 98.7 F 98.7 F Pulse Rate 74 74 Respiratory 16 16 16 Rate Blood Pressure 106/58 106/58 (mmHg) O2 Sat by Pulse 95 Oximetry Oxygen Devices in Use Now: None Appearance: Elderly female laying in bed in NAD Eyes: No Scleral Icterus Ears/Nose/Mouth/Throat: Mucous Membranes Moist Neck: NL Appearance and Movements; NL JVP, Trachea Midline Respiratory: Symmetrical Chest Expansion and Respiratory Effort, Clear to Auscultation Cardiovascular: NL Sounds; No Murmurs; No JVD, RRR Abdominal: NL Sounds; No Tenderness; No Distention Extremities: No Edema Neurological: Alert and Oriented x 3, NL Sensation Lines/Tubes/Other Access: Clean, Dry and Intact Peripheral IV Nutrition: Taking PO's Result Diagrams: 01/30/19 05:19 01/30/19 05:19 Assess/Plan/Problems-Billing Assessment: Ms. Pickett is an 88 yo F with PMH of CVA, seizures, and HTN; who presented to the ED after a mechanical fall with c/o abd pain and was found on CT to have acute diverticulitis. - Patient Problems (1) Diverticulitis Code(s): K57.92 - DVTRCLI OF INTEST, PART UNSP, W/O PERF OR ABSCESS W/O BLEED Comment: - Presenting with intermittent abd pain for an unknown duration - CT showed acute sigmoid diverticulitis without abscess or perforation - Low fiber diet - Continue Zosyn, Compazine (2) Fall Comment: - Mechanical fall off toilet hitting her head and left upper extremity - Imaging negative for fractures of LUE; brain CT unremarkable - Treat lacerations accordingly - High fall precautions (3) Hypertension Code(s): I10 - ESSENTIAL (PRIMARY) HYPERTENSION Comment: - Normotensive, SBP 100-130s - Continue metoprolol (4) Seizure disorder Code(s): G40.909 - EPILEPSY, UNSP, NOT INTRACTABLE, WITHOUT STATUS EPILEPTICUS Comment: - Continue Keppra (5) History of CVA (cerebrovascular accident) Code(s): Z86.73 - PRSNL HX OF TIA (TIA), AND CEREB INFRC W/O RESID DEFICITS Comment: - Parietal region, 1994 - No acute neurological deficits - Continue aspirin (6) Anemia Code(s): D64.9 - ANEMIA, UNSPECIFIED Comment: - Chronic, consistent with baseline - Continue ferrous sulfate (7) Depression Code(s): F32.9 - MAJOR DEPRESSIVE DISORDER, SINGLE EPISODE, UNSPECIFIED Comment: - Continue sertraline (8) DVT prophylaxis Comment: - Heparin SQ Status and Disposition: Inpatient for acute diverticulitis. Anticipate d/c back to [facility] when medically stable, likely tomorrow. Attending: Robert Dior
[2019-01-30] MEDS ORDERED: Magnesium Oxide TAB* 400 MG PO SCH (18:00)
[2019-01-30] MEDS ORDERED: Calcium Carbonate TAB* 1250 MG (CALCIUM 500 MG) PO SCH (18:00)
[2019-01-30] MEDS: Acetaminophen TAB* 325 MG PO PRN (18:35)
[2019-01-31] MEDS: Heparin VIAL(*) 5000 UNITS/ML VIAL (FIVE THOUSAND) SUBCUT SCH (05:48)
[2019-01-31] MEDS: ZOSYN 3.375 GM Q8H per EXTENDED INFUSION IVPB SCH ×2 (05:48)
[2019-01-31 08:39] LABS: ABS Basophils 0.1 10^3/ul (0-0.2); ABS Eosinophils 1.1 10^3/ul (0-0.6); ABS Lymphocytes 0.6 10^3/ul (1.0-4.8); ABS Monocytes 0.6 10^3/ul (0-0.8); ABS Neutrophils 7.8 10^3/ul (1.5-7.7); ABS Nucleated RBC 0 10^3/ul; Eosinophil % 10.9 %; Hematocrit 29 % (33-41); Hemoglobin 9.3 g/dL (12.0-16.0); Lymphocyte % 5.8 %; Mean Corpuscular HGB Conc 33 g/dL (31-36); Mean Corpuscular Hemoglobin 27 pg (27-31); Mean Corpuscular Volume 84 fL (80-97); Mean Platelet Volume 7.6 fL (7.4-10.4); Nucleated Red Blood Cells % 0; Platelet Count 356 10^3/uL (150-450); Red Blood Count 3.38 10^6 /uL (3.70-4.87); Red Cell Distribution Width 16 % (10.5-15); White Blood Count 10.3 10^3/uL (3.5-10.8)
[2019-01-31] MEDS: Docusate CAP* 100 MG PO SCH (08:50)
[2019-01-31] MEDS: Ferrous Sulfate TAB* 325 MG PO SCH (08:50)
[2019-01-31] MEDS: Sertraline* 25 MG TAB PO SCH (08:50)
[2019-01-31] MEDS: Aspirin TAB* 325 MG PO SCH (08:50)
[2019-01-31] MEDS: Ascorbic Acid TAB* 500 MG PO SCH (08:51)
[2019-01-31] MEDS: levETIRAcetam TAB* 500 MG PO SCH (08:51)
[2019-01-31] MEDS: Potassium Chlor TAB* 10 MEQ TAB.ER PO SCH (08:51)
[2019-01-31] MEDS: Metoprolol Tartrate TAB* 25 MG PO SCH (08:51)
[2019-01-31] MEDS: Acetaminophen TAB* 325 MG PO PRN (08:54)
[2019-01-31 11:57] VITALS: BP 107/44
--- NOTE | 2019-01-31 12:57 | DS ---
DISCHARGE SUMMARY: DATE OF ADMISSION: 01/30/19 DATE OF DISCHARGE: 01/31/19 PRIMARY CARE PROVIDER: Dr. Meenu Wright at [facility]. ATTENDING PHYSICIAN: Dr. Robert Dior * (dictated by Adelita Win, IVETTE). PRIMARY DIAGNOSES: 1. Sigmoid diverticulitis. 2. Mechanical fall. SECONDARY DIAGNOSES: 1. Hypertension. 2. Seizure disorder. 3. History of cerebrovascular accident. 4. Anemia. 5. Depression. STUDIES WHILE IN THE HOSPITAL: 1. Brain CT on 01/21/19 reads as no acute intracranial abnormality. 2. Abdomen and pelvis CT on 01/29/19 reads as there are new very small right and left pleural effusion and likely associated dependent atelectasis. There is a small paracardial effusion. Stable small hiatal hernia. Stable calcified guerra of the gallbladder and stable likely cholelithiasis. There is colonic diverticulosis as previously seen but on the current exam, there is abnormal wall thickening and significant fat stranding surrounding the sigmoid colon consistent with acute diverticulitis without visible abscess or signs of gross preparation. 3. Left elbow x-ray on 01/29/19 reads as probable small joint effusion. A radiographic occult fracture typically involving the radial head is not entirely excluded. 4. Left hand x-ray on 01/29/19 reads as negative for fracture. Chronic severe osteoarthritis. 5. Left upper extremity CT on 01/30/19 reads as negative for fracture of the visualized scapula, humerus, or visualized proximal radius or ulna at the elbow. Moderately severe acromioclavicular and glenohumeral joint osteoarthritis. Chronic rotator cuff tendinopathy with calcific tendinopathy of the supraspinatus. HISTORY OF PRESENT ILLNESS AND HOSPITAL COURSE: Ms. Pickett is an 88-year-old female residing at [facility] with a past medical history of hypertension, depression, CVA, and seizure disorder who presented to the emergency room on 01/29/19 with complaints of a fall and abdominal pain. Please see the history and physical by Dr. Marshall for a complete summary of the events leading up to this hospitalization. In short, the patient had a mechanical fall off the toilet when she was leaning forward. She hit her head on the floor and landed on her left arm where she sustained a skin tear. In the emergency room, she complained of abdominal pain which had been intermittent for an unknown period of time. She had imaging as noted above, which was remarkable for acute diverticulitis. She did have leukocytosis but did not meet sepsis criteria. She was admitted by the hospitalist service. The patient was started on Zosyn for her diverticulitis and placed on a low fiber diet. She did have imaging of her arm because of her fall and there were no remarkable fractures noted, though she was noted to have severe osteoarthritis. She did have a CT scan which was negative for a bleed. The patient's pain continued to improve. I will note that she is a poor historian and not always able to accurately verbalize her pain. According to nursing documentation, she did not have any pain overnight, although does report some pain to me this morning. She has been tolerating her low fiber diet well and her leukocytosis has resolved. Vital signs have been stable and she has not had any fevers or tachycardia. She is noted to be anemic, though this is consistent with her baseline and she is asymptomatic. On exam this morning, the patient reports some left lower quadrant pain and tenderness to palpation. Bowel sounds are normoactive. She has no complaints of left arm pain. Her physical exam is otherwise unremarkable. Because her diverticulitis is improving with antibiotics and she has no noted injuries from her fall, she is stable for discharge today. Ms. Pickett is stable for discharge back to [facility]. Vital signs are as follows: Temperature 98.1, heart rate 76, respiratory rate 20, oxygen saturation 95% on room air, blood pressure 132/48. DISCHARGE MEDICATIONS: New medications: Augmentin 875 mg p.o. q.8 hours x9 days. Continued medications: 1. Acetaminophen 650 mg p.o. q.4 hours p.r.n. fever or pain. 2. Maalox 30 mL p.o. q.6 hours p.r.n. indigestion. 3. Ascorbic acid 500 mg p.o. daily. 4. Aspirin 325 mg p.o. daily. 5. Calcium carbonate 500 mg p.o. at bedtime. 6. Docusate 100 mg p.o. b.i.d. 7. Ferrous sulfate 325 mg p.o. daily. 8. Keppra 250 mg p.o. b.i.d. 9. Magnesium oxide 400 mg p.o. at bedtime. 10. Metoprolol tartrate 12.5 mg p.o. q.12 hours. 11. Oxycodone 5 mg p.o. q.6 hours p.r.n. pain. 12. Potassium chloride 10 mEq p.o. b.i.d. 13. Sertraline 25 mg p.o. daily. 14. MSM/glucosamine 250/250 mg 1 cap p.o. daily. 15. Larwill-3 fatty acids 1000 mg p.o. daily. 16. Ondansetron 4 mg p.o. q.6 hours p.r.n. nausea. DISCHARGE PLAN: Ms. Pickett will be discharged back to [facility]. Activity will be as tolerated. Diet should be low fiber. Medications are noted above. The patient has only completed 1 full day of Zosyn while here in the hospital, so she will need to complete another 9 days of Augmentin to complete a total of 10 days of antibiotic therapy for her acute diverticulitis. She can continue her other usual medications as noted above and I have made no further changes. Her laceration on her left arm should be covered to prevent further injury, though she has no restrictions on use of the left arm as there is no noted fracture or injury. She will need to follow up with her primary care provider in the next 4 to 7 days. She should return to the emergency room or nearest hospital for any worsening of symptoms, shortness of breath, lightheadedness, dizziness, chest discomfort, high fevers, chills, night sweats, loss of consciousness, or any other worrisome signs or symptoms. DISCHARGE CONDITION: Good. DISCHARGE DISPOSITION: [facility]. This is a summarized report of a complex medical history and hospital stay. For further details, please see the entire medical record. Please note that this discharge summary will be used as the admitting history and physical for [facility]. TIME SPENT: Approximately 45 minutes was spent on this discharge. ADELITA WIN NP [id number]/[facility] #: [id number] [facility] HOSPITALHelen
== END 2019-01-31 13:30 | DRG 392 ==
LOC: ED 18:59 → MED 01-30 01:15
PROVIDERS: ADMIT Internal Medicine; ATTEND Internal Medicine
DX: K57.32 Diverticulitis of large intestine without perforation or abscess without bleeding (principal); J98.11 Atelectasis; J90 Pleural effusion, not elsewhere classified; I31.3 Pericardial effusion (noninflammatory); I10 Essential (primary) hypertension; Z66 Do not resuscitate; G40.909 Epilepsy, unspecified, not intractable, without status epilepticus; D64.9 Anemia, unspecified; F32.9 Major depressive disorder, single episode, unspecified; K44.9 Diaphragmatic hernia without obstruction or gangrene; K80.20 Calculus of gallbladder without cholecystitis without obstruction; M25.422 Effusion, left elbow; M19.042 Primary osteoarthritis, left hand; M19.012 Primary osteoarthritis, left shoulder; W18.12XA Fall from or off toilet with subsequent striking against object, initial encounter; S41.112A Laceration without foreign body of left upper arm, initial encounter; H54.3 Unqualified visual loss, both eyes; Y92.121 Bathroom in nursing home as the place of occurrence of the external cause; Z79.1 Long term (current) use of non-steroidal anti-inflammatories (NSAID); Z86.73 Personal history of transient ischemic attack (TIA), and cerebral infarction without residual deficits; Z79.82 Long term (current) use of aspirin; Z79.891 Long term (current) use of opiate analgesic; Z79.899 Other long term (current) drug therapy; Z88.8 Allergy status to other drugs, medicaments and biological substances; Z80.3 Family history of malignant neoplasm of breast; Z82.49 Family history of ischemic heart disease and other diseases of the circulatory system
CPT/HCPCS: 36415; 70450; 74177; 80048; 80053; 85025; 86140; 99282; A9270-GY; J1644; J2543; Q9967

== ENCOUNTER 2019-08-16 23:06 | Emergency (ER) | payer MEDICARE ==
--- NOTE | 2019-08-16 23:58 | ED ---
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 Patient denies LOC, nausea/vomiting, visual changes. Has mild headache. The patient rates the pain 0/10 in severity. Symptoms aggravated by nothing. Symptoms alleviated by nothing. - History of Current Complaint Stated Complaint: FALL PER EMS Time Seen by Provider: 08/16/19 23:40 Hx Obtained From: Patient Onset/Duration: Lasting Hours - 1, Still Present Aggravating: Nothing Alleviating: Nothing Timing: Constant Current Severity: None Pain Intensity: 0 Pain Scale Used: 0-10 Numeric - Additional Pertinent History Primary Care Physician: [place] - Allergy/Home Medications Allergies/Adverse Reactions: Allergies Allergy/AdvReac Type Severity Reaction Status Date / Time lamotrigine Allergy Severe See Comment Verified 10/26/18 15:34 Home Medications: Home Medications Bentyl 20 mg PO SEE INSTRUCTIONS 08/16/19 [History Confirmed 08/16/19] PMH/Surg Hx/FS Hx/Imm Hx Endocrine/Hematology History: Denies: Hx Diabetes Cardiovascular History: Denies: Hx Hypertension, Hx Pacemaker/ICD Respiratory History: Reports: Hx Asthma GI History: Reports: Hx Gastroesophageal Reflux Disease History: Denies: Hx Benign Prostatic Hyperplasia, Hx Chronic Renal Failure, Hx Dialysis, Hx Renal Disease Musculoskeletal History: Reports: Hx Arthritis, Hx Orthopedic Injury - R knee, Other Musculoskeletal History - R TKR Sensory History: Denies: Hx Contacts or Glasses, Hx Hearing Aid Opthamlomology History: Denies: Hx Contacts or Glasses Psychiatric History: Denies: Hx Attention Deficit Hyperactivity Disorder, Hx Panic Disorder - Surgical History Surgery Procedure, Year, and Place: TOTAL RT KNEE, 2002, [facility]. TOTAL RT HIP, [place], [place], unsure of year. RT FEMUR ORIF APRIL 2018. HYSTERECTOMY Hx Anesthesia Reactions: No Infectious Disease History: No Infectious Disease History: Denies: Traveled Outside the [place] in Last 30 Days - Family History Known Family History: Negative: Respiratory Disease, Seizure Disorder, Blood Disorder - Social History Alcohol Use: None Substance Use Type: Reports: None Smoking Status (MU): Never Smoked Tobacco Review of Systems Eyes: Negative - visual changes Negative: Vomiting, Nausea Positive: Other - lacerations above and below her left eye Neurological: Negative - LOC Positive: Headache All Other Systems Reviewed And Are Negative: Yes Physical Exam - Summary Physical Exam Summary: Appearance: Well-appearing, Well-nourished, lying in bed comfortable Skin: Warm, dry, no obvious rash Head: There are obvious signs of trauma on left side of face. There is a superficial laceration with contusion above left eyebrow. There is a deeper 3 cm laceration on left cheek. The globe itself is not injured or involved, nor are the eyelids Eyes: sclera anicteric, no conjunctival pallor ENT: mucous membranes moist Neck: deferred Respiratory: No signs of respiratory distress Cardiovascular: Appears well perfused, pulses are nml Abdomen: deferred Musculoskeletal: Moving all 4 extremities without obvious discomfort Neurological: Awake and alert, mentation is normal, speech is fluent and appropriate Psychiatric: affect is normal, does not appear anxious or depressed GCS: 15 Triage Information Reviewed: Yes Vital Signs On Initial Exam: Initial Vitals Temp Pulse Resp BP Pulse Ox 98.2 F 64 18 188/76 97 08/16/19 23:15 08/16/19 23:15 08/16/19 23:15 08/16/19 23:15 08/16/19 23:15 Vital Signs Reviewed: Yes Procedures - Sedation Patient Received Moderate/Deep Sedation with Procedure: No - Laceration/Wound Repair 1 Location: Other - left cheek Anesthesia: Local - 0.25% bupivacaine with epinephrine Irrigated w/ Saline (ccs): 30 Closure: Single Layer Suture Type: Other - ethilon 5-o Number of Sutures: 5 2 Location: Other - left eyebrow Closure: Skin Adhesive Diagnostics - Vital Signs Vital Signs Temp Pulse Resp BP Pulse Ox 08/16/19 23:15 98.2 F 64 18 188/76 97 - Laboratory Lab Statement: Any lab studies that have been ordered have been reviewed, and results considered in the medical decision making process. - CT Brain CT Interpretation Completed By: Radiologist Summary of CT Findings: 1. Left periorbital contusion/laceration. No traumatic intracranial abnormalities. 2. Age-related atrophy and moderate chronic small vessel ischemic disease. 3. Chronic right parietal SLIDING JOINT MAKER territorial infarct. ED physician has reviewed this report. 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 Physical exam findings: There are obvious signs of trauma on left side of face, superficial laceration with contusion above left eyebrow, a deeper 3 cm laceration on left cheek. The globe itself is not injured or involved, nor are the eyelids. CT Brain shows, per radiologist: 1. Left periorbital contusion/ laceration. No traumatic intracranial abnormalities. 2. Age-related atrophy and moderate chronic small vessel ischemic disease. 3. Chronic right parietal SLIDING JOINT MAKER territorial infarct. In the ED course, the lacerations were repaired with sutures and glue. See procedure notes. Patient will be [facility] to [facility] with instructions to remove sutures in 5-7 days. She was instructed to follow up with her primary care provider if needed. Patient was instructed to return to Emergency Department for new or worsening symptoms. Patient understands and is agreeable to this plan. - Clinical Impression Provider Diagnoses: Facial laceration Discharge ED - Sign-Out/Discharge Documenting (check all that apply): Patient Departure - Discharge - Discharge Plan Condition: Good Disposition: HOME Patient Education Materials: Facial Laceration (ED) Referrals: Meenu Wright DO [Primary Care Provider] - If Needed Additional Instructions: Sutures need to be removed in 5-7 days - Billing Disposition and Condition Condition: GOOD Disposition: Home - Attestation Statements Document Initiated by Jese: Yes Documenting Scribe: Araceli Villarreal Provider For Whom Jese is Documenting (Include Credential): Tez Godinez MD Scribrohith Attestation: Araceli Roberto, scribed for Tez Godinez MD on 08/18/19 at 1918. Scribe Documentation Reviewed: Yes Provider Attestation: The documentation as recorded by the Araceli spain accurately reflects the service I personally performed and the decisions made by , Tez Godinez MD Status of Scribe Document: Viewed
[2019-08-16] MEDS ORDERED: Bupivacaine 0.25% W/EPI* 50 ML VIAL INJ ONE (23:59)
[2019-08-17] MEDS ORDERED: Bupivacaine 0.25% W/EPI* 10 ML SDV INJ ONE (01:00)
[2019-08-17 02:20] VITALS: BP 0/0
== END 2019-08-17 02:18 | disposition home or self-care (01) ==
LOC: ED 23:06
DX: S05.32XA Ocular laceration without prolapse or loss of intraocular tissue, left eye, initial encounter (principal); W05.0XXA Fall from non-moving wheelchair, initial encounter; Y92.9 Unspecified place or not applicable; K21.9 Gastro-esophageal reflux disease without esophagitis
CPT/HCPCS: 12001; 70450; 96374; 99283

== ENCOUNTER 2019-12-09 04:46 | Inpatient (IN) | payer MEDICARE ==
--- NOTE | 2019-12-09 04:53 | ED ---
Shortness of Breath - HPI Summary HPI Summary: 89 year old F brought in by EMS from [facility] to [facility] complains of shortness of breath and cough since a few hours prior to arrival. She denies decreased appetite, abdominal pain, pain or swelling in bilateral lower extremities. She states she was feeling fine yesterday 12/08/2019. No hx asthma per patient. Had bedside CXR done yesterday 12/08/2019 per EMS. EMS states patient had abnormal vital signs prior to arrival. Hypertension, tachycardia, atrial fibrillation per EMS. Patient unable to sleep well and has been feeling sick recently per EMS. Symptoms aggravated by nothing. Symptoms alleviated by Duoneb treatment given by EMS. Medications reviewed. Allergies noted. - History of Current Complaint Hx Obtained From: Patient, EMS Onset/Duration: Lasting Hours, Still Present Timing: Constant Aggravating Factors: Nothing Alleviating Factors: EMS Tx - Duoneb - Allergy/Home Medications Allergies/Adverse Reactions: Allergies Allergy/AdvReac Type Severity Reaction Status Date / Time lamotrigine Allergy Severe See Comment Verified 10/26/18 15:34 Home Medications: Home Medications Al Hydrox/Mg Hydrox/Simet LIQ* [Maalox Plus*] 30 ml PO Q6H PRN 12/09/19 [ History Confirmed 12/09/19] Aspirin [Adult Aspirin Regimen] 81 mg PO DAILY 12/09/19 [History Confirmed 12/09] Dicyclomine CAP* [Bentyl CAP*] 20 mg PO TID PRN 12/09/19 [History Confirmed 04/22] Ipratropium 0.5MG/2.5ML NEB* [Atrovent 0.5 MG NEB.ALLISON*] 0.5 mg INH BID PRN 12/09 [History Confirmed 12/09/19] Menthol [Union] 7.6 mg MT Q2HR PRN 12/09/19 [History Confirmed 12/09/19] Umeclidin/Vilant 62.5 MDI(NF) [ANORO 62.5/25 Ellipta DEVICE (NF)] 1 puff INH DAILY 12/09/19 [History Confirmed 12/09/19] guaiFENesin [Mucinex] 600 mg PO BID 12/09/19 [History Confirmed 12/09/19] levETIRAcetam [Levetiracetam] 500 mg PO BEDTIME 12/09/19 [History Confirmed 04/22] PMH/Surg Hx/FS Hx/Imm Hx Endocrine/Hematology History: Denies: Hx Diabetes Cardiovascular History: Denies: Hx Hypertension, Hx Pacemaker/ICD Respiratory History: Reports: Hx Asthma GI History: Reports: Hx Gastroesophageal Reflux Disease History: Denies: Hx Benign Prostatic Hyperplasia, Hx Chronic Renal Failure, Hx Dialysis, Hx Renal Disease Musculoskeletal History: Reports: Hx Arthritis, Hx Orthopedic Injury - R knee, Other Musculoskeletal History - R TKR Sensory History: Denies: Hx Contacts or Glasses, Hx Hearing Aid Opthamlomology History: Denies: Hx Contacts or Glasses Psychiatric History: Denies: Hx Attention Deficit Hyperactivity Disorder, Hx Panic Disorder - Surgical History Surgery Procedure, Year, and Place: TOTAL RT KNEE, 2002, [facility]. TOTAL RT HIP, [place], [place], unsure of year. RT FEMUR ORIF APRIL 2018. HYSTERECTOMY Hx Anesthesia Reactions: No - Family History Known Family History: Negative: Respiratory Disease, Seizure Disorder, Blood Disorder - Social History Alcohol Use: None Substance Use Type: Reports: None Smoking Status (MU): Never Smoked Tobacco Review of Systems Positive: Shortness Of Breath, Cough Gastrointestinal: Negative - decreased appetite Negative: Abdominal Pain Musculoskeletal: Negative - pain or swelling in BLE All Other Systems Reviewed And Are Negative: Yes Physical Exam - Summary Physical Exam Summary: Appearance: An elderly, frail female in mild respiratory distress who is tachypneic and has labored breathing Skin: Warm, dry, no obvious rash Eyes: sclera anicteric, no conjunctival pallor ENT: mucous membranes moist, pharynx appears normal Neck: Supple, nontender Respiratory: She has diffuse expiratory wheezing bilaterally with bronchial breath sounds on the left Cardiovascular: Normal S1, S2. No murmurs. Normal distal pulses in tibial and radial bilaterally. Abdomen: Soft, nontender, normal active bowel sounds present Musculoskeletal: Normal, Strength/ROM Intact Neurological: A&Ox3, awake and alert, mentation is normal, speech is fluent and appropriate Psychiatric: affect is normal, does not appear anxious or depressed Triage Information Reviewed: Yes Vital Signs Reviewed: Yes Procedures - Sedation Patient Received Moderate/Deep Sedation with Procedure: No Diagnostics - Laboratory Result Diagrams: 12/10/19 05:57 12/11/19 05:34 Lab Statement: Any lab studies that have been ordered have been reviewed, and results considered in the medical decision making process. - Radiology CXR Radiology Interpretation Completed By: ED Physician - NO ACUTE PROCESS PENDING OFFICIAL REPORT - EKG 0526 Cardiac Rate: NL - 94 BPM EKG Rhythm: Sinus Rhythm Summary of EKG Findings: Sinus rhythm 94 BPM. ED PHYSICIAN HAS REVIEWED AND INTERPRETED THIS EKG. Re-Evaluation - Re-Evaluation First Eval Re-Evaluation Time: 06:46 Change: Improved - Pt has easy respirations, no wheezing and says she feels much better. I think she is stable for return to [facility] on steroids, antibiotics and nebulizer treatments. Course/Dx - Course Course Of Treatment: 89 y/o F from [facility] c/o shortness of breath and cough since a few hours prior to arrival. EMS gave patient Duoneb treatment which alleviated her symptoms. Upon exam, the patient is an elderly, frail female in mild respiratory distress who is tachypneic and has labored breathing. She has diffuse expiratory wheezing bilaterally with bronchial breath sounds on the left. Bloodwork results with no significant abnormalities except for absolute eos 0.8, creatinine 0.98, BUN/creatinine 24.5, glucose 104, BNP 153. CXR shows no acute process. An EKG shows sinus rhythm 94 BPM. In the ED course, the patient was given azithromycin, ceftriaxone, Solumedrol. Patient was given continuous albuterol neb. Patient is feeling significantly better after albuterol neb. Patient will be discharged home with prescription for albuterol, azithromycin, and prednisone and follow up from her primary care provider if needed. Patient was instructed to return to Emergency Department for new or worsening symptoms. Patient understands and is agreeable to this plan. - Diagnoses Differential Diagnosis/HQI/PQRI: Positive: Asthma, Bronchitis, COPD Exacerbation , Pneumonia, Pneumothorax Provider Diagnoses: Pneumonia Discharge ED - Sign-Out/Discharge Documenting (check all that apply): Patient Departure, Sign-Out Patient Signing out patient TO: Sorin Quintana - Discharge Plan Condition: Stable Disposition: ADMITTED TO [facility] - Billing Disposition and Condition Condition: STABLE Disposition: Admitted to [facility] - Attestation Statements Document Initiated by Scribe: Yes Documenting Scribe: Araceli Villarreal Provider For Whom Scribe is Documenting (Include Credential): Tez Godinez MD Scribe Attestation: I, Araceli Villarreal, scribed for Tez Godinez MD on 12/12/19 at 0635. Scribe Documentation Reviewed: Yes Provider Attestation: The documentation as recorded by the Araceli spain accurately reflects the service I personally performed and the decisions made by me, Tez Godinez MD Status of Scribrohith Document: Viewed
[2019-12-09 05:20] LABS: ABS Eosinophils 0.8 10^3/ul (0-0.6); ABS Lymphocytes 1.1 10^3/ul (1.0-4.8); ABS Monocytes 0.4 10^3/ul (0-0.8); ABS Neutrophils 2.6 10^3/ul (1.5-7.7); Eosinophil % 16.4 %; Hematocrit 40 % (35-47); Hemoglobin 13.3 g/dL (12.0-16.0); Lymphocyte % 22.5 %; Mean Corpuscular HGB Conc 33 g/dL (31-36); Mean Corpuscular Hemoglobin 31 pg (27-31); Mean Corpuscular Volume 92 fL (80-97); Mean Platelet Volume 8.6 fL (7.4-10.4); Platelet Count 188 10^3/uL (150-450); Red Blood Count 4.38 10^6 /uL (3.70-4.87); Red Cell Distribution Width 15 % (10-15); White Blood Count 4.9 10^3/uL (3.5-10.8)
[2019-12-09 05:37] LABS: Albumin 3.8 g/dL (3.2-5.2); Albumin/Globulin Ratio 1.2 (1-3); BUN/Creatinine Ratio 24.5 (8-20); Calcium 8.9 mg/dL (8.6-10.3); EGFR African American 64.7 (>60); EGFR Non-African American 53.4 (>60); Globulin 3.1 g/dL (2-4); Potassium 4.2 mmol/L (3.5-5.0); Total Bilirubin 0.3 mg/dL (0.2-1.0); Total Protein 6.9 g/dL (6.4-8.9)
[2019-12-09 05:39] LABS: Troponin I 0.01 ng/mL (<0.03)
[2019-12-09] MEDS ORDERED: Albuterol 0.5% CONC NEB.SOL* 5 MG/ML 20 ml BOT INH ONE (05:53)
[2019-12-09] MEDS ORDERED: Azithromycin 500 mg/250 ml NS 500 MG/250 ML BAG IVPB ONE (06:10)
[2019-12-09] MEDS ORDERED: cefTRIAXone(*) 1 GM in NS 0.9% 50 ML* 50 ML IVPB ONE (06:10)
[2019-12-09] MEDS ORDERED: methylPREDNISolone 125 MG* 2 ML VIAL IV ONE (06:10)
[2019-12-09] MEDS ORDERED: Magnesium Sulfate 2 GM IV* 2 GM/50 ML BAG IVPB ONE (07:24)
[2019-12-09] MEDS ORDERED: Albuterol/Ipratropium NEB.SOL* Albuterol 2.5 MG/Ipratropium 0.5 MG 3 ML INH PRN (07:40)
[2019-12-09] MEDS ORDERED: Acetaminophen TAB* 325 MG PO PRN ×2 (07:40→07:43)
[2019-12-09] MEDS ORDERED: Al Hydrox/Mg Hydrox/Simet LIQ* 30 ML UDC PO PRN (07:43)
[2019-12-09 07:55] LABS: C Reactive Protein 37.87 mg/L (<8.01)
[2019-12-09] MEDS: Albuterol/Ipratropium NEB.SOL* Albuterol 2.5 MG/Ipratropium 0.5 MG 3 ML INH SCH ×8 (07:55→14:38)
--- NOTE | 2019-12-09 08:10 | ED ---
Progress - Progress Note Progress Note: The patient was seen by Dr. Tez Godinez early this morning with plan for discharge as the patient had seemingly improved after continuous neb, and was to be given rx for Albuterol, Azithromycin, and Prednisone. However, as nurse Shravan was weening the patient off of the 3L NC O2 she was on, she began desating to 86%, and O2 was replaced. I evaluated the patient, and she had tightness in the chest with rhonchi and wheezing, air entry worse doing down the lung daniels, prolonged expiratory phase. She desats immediately when turning off O2. She is not remotely fit for d/c at this point. She will be given 3 Duonebs and 2mg IV mag. I spoke with Dr. Castillo from the hospitalist services, and she accepts the patient for admission. Patient agreeable with plan. Re-Evaluation - Re-Evaluation First Eval Re-Evaluation Time: 07:20 Change: Worse Comment: Patient not fit for d/c at this time, plan for admission Course/Dx - Course Course Of Treatment: The patient was seen by Dr. Tez Godinez early this morning with plan for discharge as the patient had seemingly improved after continuous neb, and was to be given rx for Albuterol, Azithromycin, and Prednisone. However, as nurse Shravan was weening the patient off of the 3L NC O2 she was on, she began desating to 86%, and O2 was replaced. I evaluated the patient, and she had tightness in the chest with rhonchi and wheezing, air entry worse doing down the lung daniels, prolonged expiratory phase. She desats immediately when turning off O2. She is not remotely fit for d/c at this point. She will be given 3 Duonebs and 2mg IV mag. I spoke with Dr. Castillo from the hospitalist services, and she accepts the patient for admission. Patient agreeable with plan. - Diagnoses Provider Diagnoses: Pneumonia - Provider Notifications Discussed Care Of Patient With: Sydney Castillo - hospitalist Time Discussed With Above Provider: 07:30 Instructed by Provider To: Admit As Observation - I discussed the patients case with Dr. Castillo, who accepts the patient for admission. Discharge ED - Sign-Out/Discharge Documenting (check all that apply): Patient Departure - Patient is accepted for admission by Dr. Castillo. - Discharge Plan Condition: Stable Disposition: ADMITTED TO [facility] - Billing Disposition and Condition Condition: STABLE Disposition: Admitted to [facility] - Attestation Statements Document Initiated by Jese: Yes Documenting Scribe: Nathalie Myers Provider For Whom Jese is Documenting (Include Credential): Dr. Sorin Quintana MD Scribe Attestation: Nathalie Roberto scribed for Dr. Sorin Quintana MD on 12/09/19 at 1852. Scribe Documentation Reviewed: Yes Provider Attestation: The documentation as recorded by the Nathalie spain accurately reflects the service I personally performed and the decisions made by me, Dr. Sorin Quintana MD Status of Scribe Document: Viewed Procedures - Sedation Patient Received Moderate/Deep Sedation with Procedure: No
[2019-12-09 08:14] LABS: Influenza A Molecular Negative (Negative); Influenza B Molecular Negative (Negative)
--- NOTE | 2019-12-09 09:41 | HP ---
CC: Primary Care Physician at [facility].* HISTORY AND PHYSICAL: DATE OF ADMISSION: 12/09/19 PRIMARY CARE PROVIDER: Physician covering [facility]. CHIEF COMPLAINT: Shortness of breath. HISTORY OF PRESENT ILLNESS: Majo Pickett is an 89-year-old female with history of seizure disorder who also now has ambulatory dysfunction, which is chronic and uses a wheelchair at assisted at [facility] where she is a resident of. The patient states that she has been having problems with cough for the past 2 weeks and overnight she developed wheezing and shortness of breath. She came into the ED for evaluation. She was noted to have significant bronchospasm. She was treated with Solu-Medrol and nebulizer treatment. She is going to be admitted for overnight observation with a diagnosis of hypoxemia. Her oxygen level on room air is 86% PAST MEDICAL HISTORY: 1. 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 2. History of seizure disorder. 3. 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 4. Depression. 5. Hypertension. 6. ORIF of distal femur and periprosthetic knee fracture. The complications of the ORIF, the patient has now the ambulatory dysfunction MEDICATIONS AT HOME: Include: 1. Menthol cough drops on a p.r.n. basis. 2. Calcium carbonate 500 mg q.p.m. 3. Anoro Ellipta 1 inhalation daily. 4. Maalox on a p.r.n. basis. 5. Ipratropium nebulizers 1 nebulizer b.i.d. 6. Guanfacine 600 mg b.i.d. 7. Colace 100 mg b.i.d. 8. Metoprolol tartrate 12.5 mg q.12 9. Glucosamine 1 capsule daily. 10. Mag ox 400 mg daily. 11. Bentyl on a p.r.n. basis 12. Zoloft 50 mg daily. 13. Potassium chloride 20 mEq daily. 14. Keppra 250 mg b.i.d. 15. Aspirin 81 daily. 16. Prednisone 40 mg daily that was prescribed in the mid of November 2019. Please note that from review of the patient's medical records the patient had been on prednisone treatment intermittently for the past couple of months. ALLERGIES: LAMOTRIGINE. FAMILY HISTORY: Positive for mother who of breast cancer in her 90s. Father at the age of 62 of a heart attack. SOCIAL HISTORY: The patient denies any tobacco, alcohol, or drug use. She is a homemaker, currently a resident of [facility], uses a wheelchair. She is a [employer]. Her surrogate decision maker is her daughter, Lucia Sanders, phone number [phone]. REVIEW OF SYSTEMS: Please see history of present illness. Other remaining 12 systems are reviewed with the patient and otherwise negative. PHYSICAL EXAMINATION GENERAL: The patient is a very pleasant 89-year-old female who is not in acute distress. The patient is alert, awake, and oriented x3. VITAL SIGNS: Blood pressure 139/87, heart rate of 70 and regular, respiratory rate 22, oxygen saturation 97% on 3 L of oxygen on nasal cannula, temperature of 97.5. HEENT: Head atraumatic, normocephalic. Eyes: Pupils are equal and reactive to light and accommodation. Oropharynx is clear. Mucosa moist. NECK: Supple. No JVD. No bruit bilaterally. RESPIRATORY: Diffuse wheezes at bilateral entire lung daniels. CARDIOVASCULAR: Regular rate and rhythm. No murmur. ABDOMEN: Slightly distended. Soft, nontender. Bowel sounds are present in all 4 quadrants. EXTREMITIES: There is no edema. Pulses are +2 bilaterally. No clubbing and cyanosis. NEURO EVALUATION: Speech is clear. Cranial nerves II through XII grossly intact. Motor strength is 5/5 bilaterally. DIAGNOSTIC STUDIES/LAB DATA: White blood cell count 4.9, hemoglobin 13.3, hematocrit 40, platelets of 188. Sodium of 141, potassium 4.2, chloride 106, carbon dioxide 7, BUN 24, creatinine 0.98. Liver function is unremarkable. C-reactive protein was 37. Brain natriuretic peptide was 153. The patient's portable chest x-ray showed impression "stigmata of COPD." Potential trace pleural effusion. No evidence of pneumonia. The patient's EKG showed sinus rhythm with heart rate of 94 beats per minute with PACs. No significant ST changes. ASSESSMENT/PLAN: An 89-year-old female with history what appears to be maybe recently diagnosed asthma since the patient had been on prednisone taper and was started on Anoro Ellipta recently. The patient is going to be placed on overnight observation. She is going to be treated with azithromycin, steroids, and nebulizer treatments. She also has had acute hypoxic respiratory failure with the above- mentioned bronchospasm. I suspect this is likely related to viral infection. C-reactive protein is slightly elevated. The patient has a history of seizures. The patient is going to be continued on Keppra 250 mg b.i.d. For DVT prophylaxis, the patient will be placed on heparin subcutaneously. The patient's code status is do not resuscitate and do not intubate. TIME SPENT: Approximately 55 minutes was spent on admission of the patient's more than half that time was spent [id number] with the patient during the interview and physical exam. [id number]/[facility] #: [id number] PATRIC
[2019-12-09] MEDS: methylPREDNISolone SOD 40 MG* 1 ML VIAL IV SCH ×2 (11:55→15:38)
[2019-12-09] MEDS: Aspirin EC TAB* 81 MG TAB.EC PO SCH (11:55)
[2019-12-09] MEDS: Potassium Chlor TAB* 10 MEQ TAB.ER PO SCH ×2 (11:55→20:37)
[2019-12-09] MEDS: Metoprolol Tartrate TAB* 25 MG PO SCH ×2 (11:56→20:38)
[2019-12-09] MEDS: levETIRAcetam TAB* 500 MG PO SCH ×2 (11:56→20:38)
[2019-12-09] MEDS: guaiFENesin ER TAB 600 MG PO SCH ×2 (11:56→20:39)
[2019-12-09] MEDS: Sertraline* 25 MG TAB PO SCH (11:57)
[2019-12-09] MEDS: Docusate CAP* 100 MG PO SCH ×2 (11:57→20:40)
[2019-12-09] MEDS: Tiotropium Brom/Olodaterol MDI INH SCH (14:30)
[2019-12-09] MEDS: Heparin VIAL(*) 5000 UNITS/ML VIAL (FIVE THOUSAND) SUBCUT SCH ×2 (15:38→20:40)
[2019-12-09] MEDS: Magnesium Oxide TAB* 400 MG PO SCH (17:08)
[2019-12-09] MEDS ORDERED: levETIRAcetam TAB* 500 MG PO SCH (21:00)
[2019-12-10] MEDS: methylPREDNISolone SOD 40 MG* 1 ML VIAL IV SCH ×3 (00:05→18:32)
[2019-12-10] MEDS: Heparin VIAL(*) 5000 UNITS/ML VIAL (FIVE THOUSAND) SUBCUT SCH ×3 (05:46→21:43)
[2019-12-10] MEDS: Azithromycin IV(*) 250 MG in NS 0.9% 250 ML* 250 ML IVPB SCH (05:46)
[2019-12-10 06:30] LABS: ABS Lymphocytes 0.7 10^3/ul (1.0-4.8); ABS Monocytes 0.3 10^3/ul (0-0.8); ABS Neutrophils 8.9 10^3/ul (1.5-7.7); Hematocrit 34 % (35-47); Hemoglobin 11.6 g/dL (12.0-16.0); Lymphocyte % 7.2 %; Mean Corpuscular HGB Conc 34 g/dL (31-36); Mean Corpuscular Hemoglobin 32 pg (27-31); Mean Corpuscular Volume 92 fL (80-97); Mean Platelet Volume 9.1 fL (7.4-10.4); Platelet Count 186 10^3/uL (150-450); Red Blood Count 3.67 10^6 /uL (3.70-4.87); Red Cell Distribution Width 14 % (10-15); White Blood Count 9.9 10^3/uL (3.5-10.8)
[2019-12-10 06:47] LABS: BUN/Creatinine Ratio 36.2 (8-20); Calcium 8.1 mg/dL (8.6-10.3); EGFR African American 67.8 (>60); EGFR Non-African American 56.1 (>60)
[2019-12-10 06:51] LABS: Potassium 5.2 mmol/L (3.5-5.0)
[2019-12-10] MEDS: Tiotropium Brom/Olodaterol MDI INH SCH (08:17)
[2019-12-10] MEDS: Metoprolol Tartrate TAB* 25 MG PO SCH ×2 (10:36→21:43)
[2019-12-10] MEDS: Aspirin EC TAB* 81 MG TAB.EC PO SCH (10:37)
[2019-12-10] MEDS: Sertraline* 25 MG TAB PO SCH (10:37)
[2019-12-10] MEDS: levETIRAcetam TAB* 500 MG PO SCH ×2 (10:37→21:43)
[2019-12-10] MEDS: guaiFENesin ER TAB 600 MG PO SCH ×2 (10:38→21:43)
[2019-12-10] MEDS: Docusate CAP* 100 MG PO SCH ×2 (10:38→21:43)
--- NOTE | 2019-12-10 11:22 | PN ---
Subjective Date of Service: 12/10/19 Interval History: Pt c/o wheezing and SOB, although 02 sats 96% on RA. Feels too unwell to go home today, also has been coughing "all night" Objective Active Medications: Acetaminophen (Tylenol Tab*) 650 mg PO Q4H PRN PRN Reason: FEVER/PAIN Al Hydrox/Mg Hydrox/Simethicone (Maalox Plus*) 30 ml PO Q6H PRN PRN Reason: INDIGESTION Albuterol/Ipratropium (Duoneb (Albuterol 2.5 Mg/Ipratropium 0.5 Mg)) 1 neb INH [id number] AWAKE PRN PRN Reason: sob/wheexing Last Admin: 12/09/19 21:51 Dose: 1 neb Aspirin (Aspirin Ec Tab*) 81 mg PO DAILY [facility] Last Admin: 12/10/19 10:37 Dose: 81 mg Docusate Sodium (Colace Cap*) 100 mg PO BID [facility] Last Admin: 12/10/19 10:38 Dose: 100 mg Guaifenesin (Mucinex*) 600 mg PO BID [facility] Last Admin: 12/10/19 10:38 Dose: 600 mg Heparin Sodium (Porcine) (Heparin Vial(*)) 5,000 units SUBCUT Q8HR [facility] Last Admin: 12/10/19 05:46 Dose: 5,000 units Azithromycin 250 mg/ Sodium (Chloride) 250 mls @ 250 mls/hr IVPB Q24H [facility] Last Admin: 12/10/19 05:46 Dose: 250 mls/hr Levetiracetam (Keppra Tab*) 250 mg PO BID [facility] Last Admin: 12/10/19 10:37 Dose: 250 mg Magnesium Oxide (Magox 400 Tab*) 400 mg PO QPM [facility] Last Admin: 12/09/19 17:08 Dose: 400 mg Methylprednisolone Sodium Succinate (Solu-Medrol 40 Mg) 40 mg IV Q8H [facility] Last Admin: 12/10/19 10:38 Dose: 40 mg Metoprolol Tartrate (Lopressor Tab*) 12.5 mg PO Q12HR [facility] Last Admin: 12/10/19 10:36 Dose: 12.5 mg Sertraline HCl (Zoloft*) 50 mg PO DAILY [facility] Last Admin: 12/10/19 10:37 Dose: 50 mg Tiotropium [place]/Olodaterol (Stiolto Respimat Inh [place] (60 Puff)) 2 puff INH DAILY [facility] Last Admin: 12/10/19 08:17 Dose: 2 puff Vital Signs - 8 hr 12/10/19 12/10/19 07:00 08:18 Temperature 97.4 F Pulse Rate 70 74 Respiratory 18 16 Rate Blood Pressure 156/71 (mmHg) O2 Sat by Pulse 100 97 Oximetry Oxygen Devices in Use Now: Nasal Cannula Appearance: 89 yo F in NAD, AOOx3 Eyes: No Scleral Icterus, PERRLA Ears/Nose/Mouth/Throat: NL Teeth, Lips, Gums, Mucous Membranes Moist Neck: NL Appearance and Movements; NL JVP, Trachea Midline Respiratory: - - diffuse wheezes b/l lungs and prolonged exp phase Cardiovascular: NL Sounds; No Murmurs; No JVD, RRR Abdominal: NL Sounds; No Tenderness; No Distention Lymphatic: No Cervical Adenopathy Extremities: No Edema Neurological: Alert and Oriented x 3, NL Muscle Strength and Tone Result Diagrams: 12/10/19 05:57 12/10/19 05:57 Microbiology and Other Data: Microbiology 12/09/19 19:00 Gram Stain - Final Sputum 12/09/19 05:36 Aerobic Blood Culture - Preliminary Blood Venous No Growth Day 1 Anaerobic Blood Culture - Preliminary No Growth Day 1 12/09/19 05:13 Aerobic Blood Culture - Preliminary Blood Venous No Growth Day 1 Anaerobic Blood Culture - Preliminary No Growth Day 1 12/09/19 07:58 Nasal Screen MRSA (PCR) - Final Nasal Mrsa Not Detected Assess/Plan/Problems-Billing Assessment: Ms. Pickett is an 89 yo F with PMH of CVA, seizures, and HTN; who presented to the ED for SOB and bronchospasm - Patient Problems (1) Acute hypoxemic respiratory failure Comment: due to beonchospasm Unsure if bacterial, infection could be contributing, but will cont Azithro Due to siginficant wheezing today -will cont IV solu Medrol and nebs (2) Hyperkalemia Comment: mild, d/c home potassium supplement (3) Seizure disorder Comment: - Continue Keppra (4) DVT prophylaxis Comment: - Heparin SQ Status and Disposition: OBV
[2019-12-10] MEDS: Magnesium Oxide TAB* 400 MG PO SCH (18:32)
[2019-12-11] MEDS: methylPREDNISolone SOD 40 MG* 1 ML VIAL IV SCH ×3 (00:09→17:11)
[2019-12-11] MEDS: Heparin VIAL(*) 5000 UNITS/ML VIAL (FIVE THOUSAND) SUBCUT SCH ×3 (05:35→21:52)
[2019-12-11] MEDS: Azithromycin IV(*) 250 MG in NS 0.9% 250 ML* 250 ML IVPB SCH (05:35)
[2019-12-11 06:32] LABS: EGFR African American 76.2 (>60); Potassium 4.5 mmol/L (3.5-5.0)
[2019-12-11] MEDS: Tiotropium Brom/Olodaterol MDI INH SCH (07:55)
[2019-12-11] MEDS: guaiFENesin ER TAB 600 MG PO SCH ×2 (10:06→21:53)
[2019-12-11] MEDS: Sertraline* 25 MG TAB PO SCH (10:06)
[2019-12-11] MEDS: Metoprolol Tartrate TAB* 25 MG PO SCH ×2 (10:06→21:54)
[2019-12-11] MEDS: Aspirin EC TAB* 81 MG TAB.EC PO SCH (10:06)
[2019-12-11] MEDS: Docusate CAP* 100 MG PO SCH ×2 (10:07→21:53)
[2019-12-11] MEDS: levETIRAcetam TAB* 500 MG PO SCH ×2 (10:07→21:53)
--- NOTE | 2019-12-11 11:18 | DS ---
CC: Primary care provider at [facility] [place]. * DISCHARGE SUMMARY: DATE OF ADMISSION: 12/09/19 DATE OF DISCHARGE: 12/11/19 PRIMARY CARE PROVIDER: Physician seeing patient at [facility] [place]. DISCHARGE DIAGNOSIS: Acute hypoxemic respiratory failure due to bronchospasm, likely precipitated by viral infection. SECONDARY DIAGNOSES: 1. History of cerebrovascular accident, right parietal region, in 1994 with no residuals. 2. Seizure disorder. 3. 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 4. Depression. 5. Hypertension. 6. ORIF of distal femur and periprosthetic knee fracture with complications of ambulatory dysfunction. The patient is now wheelchair-bound. MEDICATIONS AT DISCHARGE: Include: 1. Acetaminophen on p.r.n. basis. 2. Maalox on p.r.n. basis. 3. Aspirin 81 mg daily. 4. Calcium carbonate 500 mg q.p.m. 5. Bentyl 20 mg t.i.d. p.r.n. 6. Colace 100 mg b.i.d. 7. Glucosamine 1 capsule daily. 8. Mucinex 600 mg b.i.d. 9. Atrovent nebulizer b.i.d. 10. Keppra 500 mg at bedtime. 11. Mag-Ox 400 mg q.p.m. 12. Menthol 7.6 mg on p.r.n. basis. 13. Sertraline 50 mg daily. 14. Anoro Ellipta 1 inhalation daily. 15. Albuterol nebulizers on a p.r.n. basis. 16. Azithromycin 250 mg daily for a total of 4 days. 17. Metoprolol tartrate 12.5 mg every 12 hours. 18. Prednisone 40 mg daily for a total of 4 days, then stop. DISPOSITION AT DISCHARGE: To [facility] [place]. CONDITION AT DISCHARGE: Stable. LABORATORY DATA DURING THE HOSPITAL STAY: On 12/10/19, white blood cell count of 9.9, hemoglobin 11.6, hematocrit of 34, and platelets of 186. Sodium was 141 , potassium 4.5, chloride 110, carbon dioxide 27, BUN 34, creatinine 0.85. Influenza testing was negative. The patient's portable chest x-ray obtained at admission, impression: " Stigmata of obstructive lung disease. Potential trace pleural effusions. No evidence for pneumonia." Sputum cultures are pending. Blood pressures obtained at admission were unremarkable and negative on the day of discharge. HOSPITALIZATION COURSE: Majo Pickett is an 89-year-old female with ambulatory dysfunction, who lives at [facility] [place], who presented to [facility] complaining of shortness of breath, wheezing, and cough. The patient apparently has had cough for the past 2 weeks. She was prescribed azithromycin and parenteral steroids with good results. She was hypoxemic by the time of admission and 24 hours after admission, but had resolved by the time of discharge, her oxygen saturation was 96% on room air. On the day of discharge, the patient's wheezes definitely improved and she is going to be discharged back to [facility] [place] for further treatment with steroids and antibiotics. I suspect her bronchospasm that caused her acute hypoxemic respiratory failure was likely related to viral infection. Please note that the patient's C-reactive protein was noted to be 37 on the day of admission. The patient is recommended to follow up with her primary care provider at [facility] in approximately 3 to 7 days. PHYSICAL EXAM AT THE TIME OF DISCHARGE: Blood pressure 157/72, heart rate of 72 and regular, respiratory rate 18, oxygen saturation 96% on room air, temperature 98.3. General: The patient is a very pleasant 89-year-old female, who is in no acute distress. The patient is alert and oriented x3. HEENT: Head: Atraumatic, normocephalic. Eyes: Pupils are equal and reactive to light and accommodation. Oropharynx is clear. Mucosa moist. Neck: Supple. No JVD. No bruits bilaterally. Cardiovascular: Regular rate and rhythm. No murmur. Respiratory: Scant wheezes at bilateral bases, otherwise clear. Abdomen: Soft, nontender. Bowel sounds are present in all 4 quadrants. Extremities: There is no edema. Pulses are 2+ bilaterally. No clubbing or cyanosis. On neuro evaluation, speech is clear. Cranial nerves II through XII grossly intact. Motor strength is 5/5 bilaterally. Please note that this is a short summary of the patient's hospital stay. Please refer to further medical records for details. TIME SPENT: Approximately 40 minutes was spent on the patient's discharge. [id number]/[facility] #: [id number] MTDD
[2019-12-11] MEDS: Magnesium Oxide TAB* 400 MG PO SCH (17:11)
[2019-12-12] MEDS: methylPREDNISolone SOD 40 MG* 1 ML VIAL IV SCH (00:56)
[2019-12-12] MEDS ORDERED: amLODIPine TAB* 5 MG PO ONE (03:29)
[2019-12-12] MEDS: Heparin VIAL(*) 5000 UNITS/ML VIAL (FIVE THOUSAND) SUBCUT SCH (05:03)
[2019-12-12] MEDS: Azithromycin IV(*) 250 MG in NS 0.9% 250 ML* 250 ML IVPB SCH (05:03)
[2019-12-12] MEDS ORDERED: hydrALAZINE IV* 20 MG/ML VIAL IV SLOW PU ONE (06:44)
[2019-12-12] MEDS: Tiotropium Brom/Olodaterol MDI INH SCH (07:43)
[2019-12-12] MEDS: levETIRAcetam TAB* 500 MG PO SCH (08:33)
[2019-12-12] MEDS: Aspirin EC TAB* 81 MG TAB.EC PO SCH (08:33)
[2019-12-12] MEDS: guaiFENesin ER TAB 600 MG PO SCH (08:34)
[2019-12-12] MEDS: Metoprolol Tartrate TAB* 25 MG PO SCH (08:34)
[2019-12-12] MEDS: Docusate CAP* 100 MG PO SCH (08:34)
[2019-12-12] MEDS: Sertraline* 25 MG TAB PO SCH (08:34)
--- NOTE | 2019-12-12 10:36 | DS ---
CC: [facility] * DISCHARGE SUMMARY: ADDENDUM UPDATE TO PREVIOUS DISCHARGE SUMMARY DATE OF ADMISSION: 12/09/19 DATE OF DISCHARGE: 12/12/19 This is an addendum to the patient's discharge summary dictated by myself on 06/22. Please note that after the patient's discharge was prepared on 12/11/19 in the morning, the patient requested the case loader operator to stay another night. She was granted that request and she stayed overnight. There were no significant events apart from her blood pressure being slightly elevated that resolved by morning. She feels better today and she is ready to go back to [facility]. MEDICATIONS: Her medications at discharge are unchanged. PHYSICAL EXAM AT THE TIME OF DISCHARGE: Blood pressure 112/60, heart rate of 63 and regular, respiratory rate 20, oxygen saturation 95% on room air, temperature 97.1. General: The patient is a pleasant 89-year-old female, who is in no acute distress. She is alert and oriented x3. HEENT: Head: Atraumatic, normocephalic. Eyes: Pupils are equal and reactive to light and accommodation. Oropharynx is clear. Mucosa moist. Neck: Supple. No JVD. No bruits bilaterally. Cardiovascular: Regular rate and rhythm. No murmur. Respiratory: Coarse wheezes at bilateral bases. Abdomen: Soft, nontender. Bowel sounds are present in all 4 quadrants. Extremities: There is no edema. Pulses are 2+ bilaterally. No clubbing or cyanosis. DISPOSITION AT DISCHARGE: The patient is being discharged to [facility]. CONDITION AT DISCHARGE: Stable. [id number]/[facility] #: [id number] [facility] CENTERHelen
[2019-12-12] MEDS ORDERED: NS 0.9% 250 ML* 250 ML IV ONE (11:59)
[2019-12-12 12:59] VITALS: BP 115/50
== END 2019-12-12 13:03 | disposition home or self-care (01) | DRG 203 ==
LOC: ED 04:46 → MED 07:40 → OBSVTOIN 12-10 12:49
PROVIDERS: ADMIT Internal Medicine; ATTEND Internal Medicine
DX: J98.01 Acute bronchospasm (principal); B34.9 Viral infection, unspecified; G40.909 Epilepsy, unspecified, not intractable, without status epilepticus; H54.3 Unqualified visual loss, both eyes; F32.9 Major depressive disorder, single episode, unspecified; E87.5 Hyperkalemia; I10 Essential (primary) hypertension; Z86.73 Personal history of transient ischemic attack (TIA), and cerebral infarction without residual deficits; Z99.3 Dependence on wheelchair; Z79.82 Long term (current) use of aspirin; Z79.52 Long term (current) use of systemic steroids; Z79.899 Other long term (current) drug therapy; Z88.8 Allergy status to other drugs, medicaments and biological substances; Z80.3 Family history of malignant neoplasm of breast; Z82.49 Family history of ischemic heart disease and other diseases of the circulatory system
CPT/HCPCS: 36415; 71046; 80048; 80053; 83605; 83880; 84484; 85025; 86140; 87040; 87070; 87205; 87641; 93005; 94640; 96365; 96375; 99285; A9270-GY; G0378; J0360; J0456; J0696; J1644; J2920; J2930; J3475; J3535; J7512; J7611

== ENCOUNTER 2020-01-06 11:18 | Inpatient (IN) | payer MEDICARE ==
--- NOTE | 2020-01-06 11:59 | ED ---
Respiratory - HPI Summary HPI Summary: 89 year old F with hx pneumonia arriving via EMS to [facility] from [facility] complains of worsening productive cough with white sputum, fatigue, rhinorrhea, decreased appetite x2 days. Patient states she has been feeling sick and weak for a couple of weeks. No hx COPD or emphysema. She does not wear oxygen at home. Patient denies any fever, chills, diaphoresis, erythema of eyes, sore throat, chest pain, shortness of breath, abdominal pain, nausea/vomiting, dysuria, hematuria, myalgia, edema, rash, dizziness. Symptoms aggravated by nothing. Symptoms alleviated by nothing. Medications reviewed. Was started on Atrovent yesterday 01/04. Allergies noted. Never smoked tobacco. Home Medications Medication Instructions Recorded Confirmed Type Acetaminophen TAB* [Tylenol TAB*] 650 mg PO Q4H PRN 05/25/18 01/06/20 History Calcium Carbonate TAB* 500 mg PO QPM 05/25/18 01/06/20 History Magnesium Oxide TAB* [MagOx 400 400 mg PO QPM 05/25/18 01/06/20 History TAB*] Metoprolol Tartrate TAB* 12.5 mg PO Q12HR tab 05/27/18 01/06/20 Rx [Lopressor TAB*] Sertraline* [Zoloft*] 50 mg PO DAILY 01/30/19 01/06/20 History Aspirin [Adult Aspirin Regimen] 81 mg PO DAILY 12/09/19 01/06/20 History Ipratropium 0.5MG/2.5ML NEB* 0.5 mg INH Q4H PRN 12/09/19 01/06/20 History [Atrovent 0.5 MG NEB.ALLISON*] Umeclidin/Vilant 62.5 MDI(NF) 1 puff INH DAILY 12/09/19 01/06/20 History [ANORO 62.5/25 Ellipta DEVICE (NF)] levETIRAcetam [Levetiracetam] 250 mg PO DAILY 12/09/19 01/06/20 History Potassium Chloride [Klor-Con M20] 20 meq PO DAILY 01/06/20 01/06/20 History levETIRAcetam [Levetiracetam] 500 mg PO BEDTIME 01/06/20 01/06/20 History - History of Current Complaint Chief Complaint: EDShortnessOfBreath Stated Complaint: BREATHING PROB/POSS PNEUMONIA PER EMS Time Seen by Provider: 01/06/20 11:57 Hx Obtained From: Patient Onset/Duration: Lasting Days - 2, Still Present Timing: Constant Current Severity: None Pain Intensity: 0 Sputum Color: White Aggravating Factor(s): Nothing Alleviating Factor(s): Nothing - Allergy/Home Medications Allergies/Adverse Reactions: Allergies Allergy/AdvReac Type Severity Reaction Status Date / Time lamotrigine Allergy Severe See Comment Verified 01/06/20 11:49 cefuroxime Allergy Unknown Verified 01/06/20 11:49 Reaction Details Home Medications: Home Medications Acetaminophen TAB* [Tylenol TAB*] 650 mg PO Q4H PRN 05/25/18 [History Confirmed 01/06/20] Calcium Carbonate TAB* 500 mg PO QPM 05/25/18 [History Confirmed 01/06/20] Magnesium Oxide TAB* [MagOx 400 TAB*] 400 mg PO QPM 05/25/18 [History Confirmed 01/06/20] Metoprolol Tartrate TAB* [Lopressor TAB*] 12.5 mg PO Q12HR tab 05/27/18 [Rx Confirmed 01/06/20] Sertraline* [Zoloft*] 50 mg PO DAILY 01/30/19 [History Confirmed 01/06/20] Aspirin [Adult Aspirin Regimen] 81 mg PO DAILY 12/09/19 [History Confirmed 01/05] Ipratropium 0.5MG/2.5ML NEB* [Atrovent 0.5 MG NEB.ALLISON*] 0.5 mg INH Q4H PRN 12/09 [History Confirmed 01/06/20] Umeclidin/Vilant 62.5 MDI(NF) [ANORO 62.5/25 Ellipta DEVICE (NF)] 1 puff INH DAILY 12/09/19 [History Confirmed 01/06/20] levETIRAcetam [Levetiracetam] 250 mg PO DAILY 12/09/19 [History Confirmed ] Potassium Chloride [Klor-Con M20] 20 meq PO DAILY 01/06/20 [History Confirmed ] levETIRAcetam [Levetiracetam] 500 mg PO BEDTIME 01/06/20 [History Confirmed 03/22] PMH/Surg Hx/FS Hx/Imm Hx Endocrine/Hematology History: Denies: Hx Diabetes Cardiovascular History: Denies: Hx Hypertension, Hx Pacemaker/ICD Respiratory History: Reports: Hx Asthma Denies: Hx Chronic Obstructive Pulmonary Disease (COPD) GI History: Reports: Hx Gastroesophageal Reflux Disease History: Denies: Hx Benign Prostatic Hyperplasia, Hx Chronic Renal Failure, Hx Dialysis, Hx Renal Disease Musculoskeletal History: Reports: Hx Arthritis, Hx Orthopedic Injury - R knee, Other Musculoskeletal History - R TKR Sensory History: Denies: Hx Contacts or Glasses, Hx Hearing Aid Opthamlomology History: Denies: Hx Contacts or Glasses Psychiatric History: Denies: Hx Attention Deficit Hyperactivity Disorder, Hx Panic Disorder - Surgical History Surgery Procedure, Year, and Place: TOTAL RT KNEE, 2002, [facility]. TOTAL RT HIP, [place], [place], unsure of year. RT FEMUR ORIF APRIL 2018. HYSTERECTOMY Hx Anesthesia Reactions: No Infectious Disease History: No Infectious Disease History: Denies: Traveled Outside the [place] in Last 30 Days - Family History Known Family History: Positive: Cardiac Disease - [place], Other - breast cancer - Social History Alcohol Use: None Substance Use Type: Reports: None Hx Tobacco Use: No Smoking Status (MU): Never Smoked Tobacco Review of Systems Positive: Fatigue. Negative: Fever, Chills Negative: Erythema Positive: Other - rhinorrhea. Negative: Sore Throat Negative: Chest Pain Positive: Cough. Negative: Shortness Of Breath Positive: Other - decreased appetite. Negative: Abdominal Pain, Vomiting, Nausea Negative: dysuria, hematuria Negative: Myalgia, Edema Negative: Rash Neurological/Mental Status: Negative - Dizziness All Other Systems Reviewed And Are Negative: Yes Physical Exam - Summary Physical Exam Summary: Constitutional: Well-developed, Well-nourished, Alert. (-) Distressed Skin: Warm, Dry HENT: Normocephalic; Atraumatic Eyes: Conjunctiva normal Neck: Musculoskeletal ROM normal neck. (-) JVD, (-) Stridor, (-) Tracheal deviation Cardio: Rhythm regular, rate normal, Heart sounds normal; Intact distal pulses; The pedal pulses are 2+ and symmetric. Radial pulses are 2+ and symmetric. (-) Murmur Pulmonary/Chest wall: Effort normal. (-) Respiratory distress, Crackles and wheezes in left upper and lower lung daniels Abd: Soft, (-) tenderness, (-) Distension, (-) Guarding, (-) Rebound Musculoskeletal: (-) Edema Lymph: (-) Cervical adenopathy Neuro: Alert, Oriented x3 Psych: Mood and affect Normal Triage Information Reviewed: Yes Vital Signs On Initial Exam: Initial Vitals Temp Pulse Resp BP Pulse Ox 98.3 F 74 16 118/62 96 01/06/20 11:25 01/06/20 11:25 01/06/20 11:25 01/06/20 11:25 01/06/20 11:25 Vital Signs Reviewed: Yes Procedures - Sedation Patient Received Moderate/Deep Sedation with Procedure: No Diagnostics - Vital Signs Vital Signs Temp Pulse Resp BP Pulse Ox 01/06/20 11:25 98.3 F 74 16 118/62 96 - Laboratory Result Diagrams: 01/06/20 12:14 01/06/20 12:14 Lab Statement: Any lab studies that have been ordered have been reviewed, and results considered in the medical decision making process. - Radiology CXR Radiology Interpretation Completed By: Radiologist - IMPRESSION: SMALL LEFT PLEURAL EFFUSION OR PLEURAL THICKENING IS NOTED. ED physician has reviewed this imaging report. Re-Evaluation - Re-Evaluation First Eval Re-Evaluation Time: 13:00 Comment: aware of lactic acid 2.5 and troponin 0.04 Second Eval Re-Evaluation Time: 15:58 Comment: aware of lactic 4.0 and troponin 0.05 Disposition - Course Course Of Treatment: 89 y/o F with hx pneumonia from [facility] presents with worsening productive cough with white sputum, fatigue, rhinorrhea, decreased appetite x2 days. Was started on Atrovent yesterday. Upon exam, the patient has crackles and wheezes in left upper and lower lung daniels. Bloodwork results with no significant abnormalities except for BUN 27, xcreatinine 1.08, BUN/creatinine 25.0, lactic acid 2.5, troponin 0.04, BNP 190. Flu tests negative. CXR shows SMALL LEFT PLEURAL EFFUSION OR PLEURAL THICKENING IS NOTED. In the ED course, patient was given normal saline fluids, Duoneb. Patient remains hypoxic in the ED. Spoke with Dr. Castillo. Dr. Castillo agrees to admit patient. - Diagnoses Provider Diagnoses: Elevated troponin, Lactic acidosis, Acute bronchitis, Hypoxemia, COPD exacerbation - Physician Notifications Discussed Care Of Patient With: Sydney Castillo Time Discussed With Above Provider: 16:19 Instructed by Provider To: Admit As Inpatient - Critical Care Time Critical Care Time: 30-74 min - 45 minutes Discharge ED - Sign-Out/Discharge Documenting (check all that apply): Patient Departure - Discharge Plan Condition: Stable Disposition: ADMITTED TO [facility] - Attestation Statements Document Initiated by Scribe: Yes Documenting Scribe: Araceli Villarreal Provider For Whom Scribe is Documenting (Include Credential): Maco Mcdermott MD Scribe Attestation: IAraceli, scribed for Maco Mcdermott MD on 01/06/20 at 1836.
[2020-01-06 12:24] LABS: ABS Eosinophils 0.3 10^3/ul (0-0.6); ABS Lymphocytes 0.7 10^3/ul (1.0-4.8); ABS Monocytes 0.4 10^3/ul (0-0.8); ABS Neutrophils 4.6 10^3/ul (1.5-7.7); Hematocrit 38 % (35-47); Hemoglobin 12.6 g/dL (12.0-16.0); Lymphocyte % 10.9 %; Mean Corpuscular HGB Conc 33 g/dL (31-36); Mean Corpuscular Hemoglobin 30 pg (27-31); Mean Corpuscular Volume 91 fL (80-97); Mean Platelet Volume 8.3 fL (7.4-10.4); Platelet Count 204 10^3/uL (150-450); Red Blood Count 4.15 10^6 /uL (3.70-4.87); Red Cell Distribution Width 14 % (10-15)
[2020-01-06 12:29] LABS: Influenza A Molecular Negative (Negative); Influenza B Molecular Negative (Negative)
[2020-01-06 12:54] LABS: ALT 15 U/L (7-52); AST 18 U/L (13-39); Albumin 3.6 g/dL (3.2-5.2); Albumin/Globulin Ratio 1.3 (1-3); Alkaline Phosphatase 71 U/L (34-104); Anion Gap 7 mmol/L (2-11); Blood Urea Nitrogen 27 mg/dL (6-24); CO2 Carbon Dioxide 30 mmol/L (22-32); Calcium 8.9 mg/dL (8.6-10.3); Chloride 102 mmol/L (101-111); EGFR African American 57.8 (>60); EGFR Non-African American 47.8 (>60); Globulin 2.8 g/dL (2-4); Glucose 118 mg/dL (70-100); Potassium 4.7 mmol/L (3.5-5.0); Sodium 139 mmol/L (135-145); Total Protein 6.4 g/dL (6.4-8.9)
[2020-01-06 12:57] LABS: INR 0.98 (0.82-1.09); Troponin I 0.04 ng/mL (<0.03)
[2020-01-06] MEDS ORDERED: NS 0.9% 1000 ML** 1,000 ML IV ONE (13:24)
[2020-01-06] MEDS ORDERED: Albuterol/Ipratropium NEB.SOL* Albuterol 2.5 MG/Ipratropium 0.5 MG 3 ML INH ONE ×2 (13:26→17:14)
[2020-01-06 15:44] LABS: Troponin I 0.05 ng/mL (<0.03)
[2020-01-06] MEDS ORDERED: DOXYcycline IV* 100 MG in NS 0.9% 250 ML* 250 ML IVPB SCH (17:00)
[2020-01-06] MEDS ORDERED: Enoxaparin(*) 40 MG/0.4 ML SYR SUBCUT SCH (17:00)
[2020-01-06] MEDS ORDERED: Albuterol 2.5 MG/3 ML NEB.SOL* (0.083%) INH PRN (17:03)
[2020-01-06] MEDS ORDERED: Acetaminophen TAB* 325 MG PO PRN (17:47)
[2020-01-06] MEDS ORDERED: Ipratropium 0.5MG/2.5ML NEB* 0.5 MG/2.5 ML NEB.SOLN INH PRN (17:47)
[2020-01-06] MEDS ORDERED: Levofloxacin 750 MG IVPREMIX(* 750 MG/150 ML BAG IVPB SCH (18:00)
[2020-01-06] MEDS ORDERED: Furosemide IV* 10 MG/ML VIAL (40 MG) IV SLOW PU ONE (18:33)
[2020-01-06 18:47] LABS: Anion Gap 7 mmol/L (2-11); BUN/Creatinine Ratio 24.5 (8-20); Blood Urea Nitrogen 23 mg/dL (6-24); CO2 Carbon Dioxide 26 mmol/L (22-32); Calcium 8.5 mg/dL (8.6-10.3); Chloride 108 mmol/L (101-111); EGFR African American 67.8 (>60); EGFR Non-African American 56.1 (>60); Glucose 121 mg/dL (70-100); Potassium 4.5 mmol/L (3.5-5.0); Sodium 141 mmol/L (135-145)
[2020-01-06 20:02] LABS: Troponin I 0.04 ng/mL (<0.03)
[2020-01-06] MEDS: guaiFENesin/CODIENE 100mg/10mg 5 ML UDC PO PRN (20:16)
[2020-01-06] MEDS: Magnesium Oxide TAB* 400 MG PO SCH (20:17)
[2020-01-06] MEDS: Calcium Carbonate TAB* 1250 MG (CALCIUM 500 MG) PO SCH ×2 (20:17→20:22)
[2020-01-06] MEDS: amLODIPine TAB* 5 MG PO SCH (20:18)
[2020-01-06 21:17] LABS: Troponin I 0.03 ng/mL (<0.03)
[2020-01-06] MEDS: levETIRAcetam TAB* 500 MG PO SCH (22:36)
[2020-01-06] MEDS: Metoprolol Tartrate TAB* 25 MG PO SCH (22:37)
[2020-01-06] MEDS: methylPREDNISolone 125 MG* 2 ML VIAL IV SCH (22:39)
[2020-01-06] MEDS: Enoxaparin(*) 30 MG/0.3 ML SYR SUBCUT SCH (22:43)
--- NOTE | 2020-01-06 22:43 | HP ---
CC: Dr. Danielle Stevenson, [facility] ADMISSION HISTORY AND PHYSICAL: DATE OF ADMISSION: 01/06/20 CHIEF COMPLAINT: Dyspnea. HISTORY OF PRESENT ILLNESS: Ms. Pickett is an 89-year-old woman with a history of asthma and stroke , who reports severe dyspnea in the emergency department. She was transferred from [facility] and records from there show that she has had 2 days of dyspnea, cough, decreased p.o. intake . She has had decreased energy for 2 weeks. The patient states she is coughing off and on, but more than her baseline, but she cannot say whether she is able to produce it or not. She states she has a headache, but denies any chest pain. The patient has had asthma only diagnosed in the last few yea rs as an adult and has no tobacco history and is not on oxygen at baseline. The patient has no known cardiac history other than hypertension. She had echocardiogram in April of 2018, which showed eject ion fraction of 60% to 65%, mild aortic stenosis, [id number] mitral regurgitation. The patient denies any fevers or sick contacts. 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 PAST SURGICAL HISTORY: ORIF right femur in April of 2018. MEDICATIONS ON ADMISSION: 1. Acetaminophen 650 mg p.o. q.4 hours p.r.n. pain or fever. 2. Aspirin 81 mg p.o. daily. 3. Calcium carbonate 500 mg p.o. q.p.m. 4. Ipratropium nebulizer q.4 hours p.r.n. 5. Levetiracetam 250 mg in the morning and 500 mg in the evening. 6. Magnesium oxide 400 mg p.o. q.p.m. 7. Potassium chloride 20 mEq p.o. daily. 8. Sertraline 50 mg p.o. daily. 9. Breo Ellipta 1 puff inhaled daily. 10. Metoprolol 12.5 mg p.o. q.12 hours. ALLERGIES: CEFUROXIME and LAMOTRIGINE. FAMILY HISTORY: Notable for mother dying in her 90s of cancer and father dying at age 62 of [place]. SOCIAL HISTORY: She is retired. She does not remember her previous occupation. She is a . She has 3 children. She is a Jehovah's witnesses. Her daughter, Lucia in the area is her healthcare proxy. She has never smoked. No alcohol or drug use. REVIEW OF SYSTEMS: The patient denies any fevers, anorexia. The patient denies any chest pain or pa lpitations. The patient denies any nausea, vomiting, diarrhea or constipation. The patient denies a ny focal neurologic weakness. Remainder of 14-point review of systems is negative other than mention ed in the HPI. PHYSICAL EXAMINATION GENERAL: She is elderly woman, in moderate respiratory distress. VITAL SIGNS: Temperature is 36.8; pulse 81 to 92; respirations are 15 to 27; blood pressure is 188/1 00, up from 147/82 earlier; oxygen saturation is 99% on 5 L. HEENT: Head is normocephalic, atraumatic. Sclerae anicteric. Pupils are equal, round, reactive to light and accommodation. Oropharynx is moist. No lesions. NECK: No JVD. No carotid bruits. No thyromegaly. LUNGS: Diffuse wheezing throughout and poor air movement. HEART: Tachycardic. Regular. No murmurs are appreciated. ABDOMEN: Soft, nontender. Positive bowel sounds. No hepatosplenomegaly. EXTREMITIES: No peripheral edema. Dorsalis pedis pulses are 1+ bilaterally. NEUROLOGIC: Cranial nerves II through XII are intact. She is moving all 4 extremities with equal po wer. She is alert and oriented x3. DIAGNOSTIC STUDIES/LAB DATA: White count is 6.0, hemoglobin is 12.6, hematocrit 38%, platelets are 204. INR is 0.98. PTT of 33.0. Sodium 139, potassium 4.7, chloride 102, bicarb 30, BUN 27, creatin ine 1.08, glucose is 118. Lactic acid was 2.5 initially, up to 4 on repeat. Troponin was 0.04 init ially, it was 0.5 on repeat. BNP is 190. AST 18, ALT 15, albumin 3.6. Calcium 8.9. Nasal swab for influenza A and B is negative. EKG is pending. Chest x-ray shows no infiltrates and possible pleural thickening versus small effusi on on the left. ASSESSMENT AND PLAN: An 89-year-old woman presenting with apparent asthma exacerbation. She could b e exacerbated by viral illness or bacterial pneumonia, not seen on chest x-ray. She will be admitted to the medical floor and have IV steroids, nebulizers. We will treat her for possible pneumonia wit h cefepime and azithromycin. She has allergies to CEFUROXIME, but has tolerated other cephalosporins in the past including cefepime. The patient will have supplemental oxygen and attention from respir atory therapist. The patient received a liter of fluid in the ER and her respiratory distress is significant. I do no t think she needed a liter of fluid and I am going to give her diuretic to potentially unload some pu lmonary edema. She has not had any a history of systolic heart failure, but may have some diastolic dysfunction. Symptomatically for her dyspnea, we will give her Robitussin with Codeine. Per her elevated troponin, she must be ruled out for myocardial infarction. She probably simply has demand ischemia. Serial troponins and EKG will be obtained. She will be monitored on telemetry overn [facility]. I did ask the patient about code status and she acknowledges that she used to have do not resuscitate , but she wants to be full code at this time. Further discussions can be held with the patient and h er daughter tomorrow, but for now, she is full code. The MOLST form has been rescinded. DVT prophylaxis: She will be on subcutaneous Lovenox. She has severe hypertension at this time. I will continue on her metoprolol and add Norvasc which sh ould not have any effect on her renal function. We will monitor creatinine closely along with magnes ium and potassium as she is supplemented for these medicines. Lactic acid is elevated, but I do not think she may have a sepsis syndrome. The patient at this time would not benefit from additional intravenous fluids and in fact she needs to be diuresed. We are s tarting her on antibiotics. Blood and sputum cultures are pending. Repeat lactic acid will be obtai fernando in 3 hours after the last one. We may alter our clinical impression based on the course ciaran lee [id number]/[facility] #: [id number]
[2020-01-06] MEDS: Cefepime 1 GM in Dextrose(*) 1 GM/50 ML BAG IV SCH (22:51)
[2020-01-07] MEDS: Azithromycin 500 mg/250 ml NS 500 MG/250 ML BAG IVPB SCH ×2 (00:07→20:19)
[2020-01-07] MEDS: guaiFENesin/CODIENE 100mg/10mg 5 ML UDC PO PRN ×2 (02:45→20:19)
[2020-01-07] MEDS: methylPREDNISolone 125 MG* 2 ML VIAL IV SCH ×3 (03:58→20:19)
[2020-01-07 06:16] LABS: ABS Lymphocytes 0.5 10^3/ul (1.0-4.8); ABS Monocytes 0.1 10^3/ul (0-0.8); ABS Neutrophils 5.9 10^3/ul (1.5-7.7); Eosinophil % 0.3 %; Hematocrit 39 % (35-47); Lymphocyte % 7.9 %; Mean Corpuscular HGB Conc 33 g/dL (31-36); Mean Corpuscular Hemoglobin 31 pg (27-31); Mean Corpuscular Volume 91 fL (80-97); Mean Platelet Volume 8.7 fL (7.4-10.4); Platelet Count 211 10^3/uL (150-450); Red Blood Count 4.26 10^6 /uL (3.70-4.87); Red Cell Distribution Width 14 % (10-15); White Blood Count 6.6 10^3/uL (3.5-10.8)
[2020-01-07 06:33] LABS: BUN/Creatinine Ratio 24.3 (8-20); Calcium 8.1 mg/dL (8.6-10.3); EGFR Non-African American 50.5 (>60); Magnesium 2.2 mg/dL (1.9-2.7); Potassium 4.8 mmol/L (3.5-5.0)
[2020-01-07] MEDS: amLODIPine TAB* 5 MG PO SCH (08:22)
[2020-01-07] MEDS: Sertraline* 50 MG TAB PO SCH (08:22)
[2020-01-07] MEDS: Potassium Chlor TAB* 20 MEQ TAB.ER PO SCH (08:22)
[2020-01-07] MEDS: Aspirin EC TAB* 81 MG TAB.EC PO SCH (08:22)
[2020-01-07] MEDS: levETIRAcetam TAB* 500 MG PO SCH ×2 (08:23→20:19)
[2020-01-07] MEDS: Metoprolol Tartrate TAB* 25 MG PO SCH ×2 (08:23→20:18)
[2020-01-07] MEDS: Cefepime 1 GM in Dextrose(*) 1 GM/50 ML BAG IV SCH ×2 (08:27→20:20)
[2020-01-07] MEDS: Tiotropium Brom/Olodaterol MDI INH SCH (09:42)
--- NOTE | 2020-01-07 11:12 | PN ---
Subjective Date of Service: 01/07/20 Interval History: Patient complained of "snoring sound" still existing. She stated that she didn't have any asthma or copd in the past, and not taking inhaler. Objective Active Medications: Acetaminophen (Tylenol Tab*) 650 mg PO Q4H PRN PRN Reason: FEVER/PAIN Albuterol (Ventolin 2.5 Mg/3 Ml Neb.Terri*) 2.5 mg INH [id number] AWAKE [facility] Stop: 01/08/20 13:59 Amlodipine Besylate (Norvasc Tab*) 5 mg PO DAILY [facility] Last Admin: 01/07/20 08:22 Dose: 5 mg Aspirin (Aspirin Ec Tab*) 81 mg PO DAILY [facility] Last Admin: 01/07/20 08:22 Dose: 81 mg Calcium Carbonate (Calcium Carbonate Tab*) 1,250 mg PO QPM [facility] Last Admin: 01/06/20 20:22 Dose: Not Given Enoxaparin Sodium (Lovenox(*)) 30 mg SUBCUT Q24H [facility] Last Admin: 01/06/20 22:43 Dose: 30 mg Guaifenesin/Codeine Phosphate (Robitussin Ac 100mg/10mg In 5 Ml) 5 ml PO Q6H PRN PRN Reason: COUGH Last Admin: 01/07/20 02:45 Dose: 5 ml Azithromycin (Zithromax 500 Mg/250 Ml) 500 mg in 250 mls @ 250 mls/hr IVPB Q24H [facility] Last Admin: 01/07/20 00:07 Dose: 250 mls/hr Cefepime HCl (Maxipime 1 Gm In Dextrose Duplex (*)) 1 gm in 50 mls @ 100 mls/ hr IV Q12H [facility] Last Admin: 01/07/20 08:27 Dose: 100 mls/hr Ipratropium [place] (Atrovent 0.5 Mg Neb.Terri*) 0.5 mg INH Q4H PRN PRN Reason: SOB/WHEEZING Levetiracetam (Keppra Tab*) 500 mg PO BEDTIME [facility] Last Admin: 01/06/20 22:36 Dose: 500 mg Levetiracetam (Keppra Tab*) 250 mg PO DAILY [facility] Last Admin: 01/07/20 08:23 Dose: 250 mg Magnesium Oxide (Magox 400 Tab*) 400 mg PO QPM [facility] Last Admin: 01/06/20 20:17 Dose: 400 mg Methylprednisolone Sodium Succinate (Solu-Medrol 125mg *) 80 mg IV Q8H [facility] Last Admin: 01/07/20 03:58 Dose: 80 mg Metoprolol Tartrate (Lopressor Tab*) 12.5 mg PO Q12HR [facility] Last Admin: 01/07/20 08:23 Dose: 12.5 mg Potassium Chloride (Klor Con Er Tab*) 20 meq PO DAILY [facility] Last Admin: 01/07/20 08:22 Dose: 20 meq Sertraline HCl (Zoloft*) 50 mg PO DAILY [facility] Last Admin: 01/07/20 08:22 Dose: 50 mg Tiotropium [place]/Olodaterol (Stiolto Respimat Inh [place] (60 Puff)) 2 puff INH DAILY [facility] Last Admin: 01/07/20 09:42 Dose: 2 puff Vital Signs - 8 hr 01/07/20 01/07/20 01/07/20 03:15 07:15 09:53 Temperature 97.4 F 97.2 F Pulse Rate 69 76 74 Respiratory 18 20 16 Rate Blood Pressure 116/64 99/51 (mmHg) O2 Sat by Pulse 100 98 97 Oximetry Oxygen Devices in Use Now: Nasal Cannula Exam: Appearance: wheezing sound heard away from patient, lying down comfortable in bed. Eyes: No Scleral Icterus, PERRLA Ears/Nose/Mouth/Throat: Mucous Membranes Moist Neck: NL Appearance and Movements; NL JVP, Trachea Midline Respiratory: Symmetrical Chest Expansion and Respiratory Effort, diffuse rhonchis. Cardiovascular: NL Sounds; No Murmurs; No JVD, no peripheral edema Abdominal: NL Sounds; No Tenderness; No Distention Extremities: no cyanosis, no edema Neurological: Alert and Oriented x 4 Result Diagrams: 01/07/20 05:39 01/07/20 05:39 Assess/Plan/Problems-Billing Majo Pickett is a 87 y/o female with history of asthma and stroke, found to have severe dyspnea and wheezing, likely asthma exacerbation. - Patient Problems (1) Asthma exacerbation Current Visit: Yes Status: Acute Code(s): J45.901 - UNSPECIFIED ASTHMA WITH (ACUTE) EXACERBATION SNOMED Code(s): 054189911 Comment: - recent diagnosis of asthma/COPD, no lung function test done, on Umeclidin/vilant before admisison - significant wheezing with no cxr changes - regular nebulizer for today - continue iv solu-medru 80mg Q8h for now - continue iv cefepime and azithromycin for possible left lower zone infiltrate (2) Elevated troponin Current Visit: Yes Status: Acute Code(s): R79.89 - OTHER SPECIFIED ABNORMAL FINDINGS OF BLOOD CHEMISTRY SNOMED Code(s): 606021232 Comment: - downtrending - no cardiac sx, ekg no new ischemic changes (3) BO (acute kidney injury) Current Visit: Yes Status: Acute Code(s): N17.9 - ACUTE KIDNEY FAILURE, UNSPECIFIED SNOMED Code(s): 76662596 Comment: mild creatinine bump, i feel it's more likely dehydration was initially hydrated and downtrending, now increased again with lasix overnight will continue to trend (4) Hypertension Current Visit: No Status: Acute Code(s): I10 - ESSENTIAL (PRIMARY) HYPERTENSION SNOMED Code(s): 88163295 Comment: - came in with hypertension BP in 180-190mmhg, amlodipine added - now running low, will hold off amlodipine - continue home med metoprolol (5) DVT prophylaxis Current Visit: No Status: Acute Code(s): NBZ0438 - SNOMED Code(s): 215967175 Comment: - Heparin SQ Status and Disposition: Inpatient Medicine. Attestation Documenting Resident: Nabila Fisher Supervising Physician: Aureliano Valverde Attending/Supervising Physician Comment: 89 yo woman w/ asthma exacerbation, improving w/ IV solumedrol, antibiotics, nebulizers. Troponin trending down. May have been volume overloaded in ED from initial sepsis infusion. Attestation: This service has been performed in part by a resident under the direction of a teaching physician.I, Aureliano Valverde, performed the service, or was physically present during the critical, or zamudio portions of the service, furnished by the resident. I participated in the management of the patient.
[2020-01-07] MEDS: Albuterol 2.5 MG/3 ML NEB.SOL* (0.083%) INH SCH ×4 (11:17→23:26)
[2020-01-07] MEDS: Magnesium Oxide TAB* 400 MG PO SCH (18:39)
[2020-01-07] MEDS: Calcium Carbonate TAB* 1250 MG (CALCIUM 500 MG) PO SCH (18:40)
[2020-01-07] MEDS: Enoxaparin(*) 30 MG/0.3 ML SYR SUBCUT SCH (20:19)
[2020-01-08] MEDS: Albuterol 2.5 MG/3 ML NEB.SOL* (0.083%) INH SCH ×2 (02:58→07:23)
[2020-01-08] MEDS: methylPREDNISolone 125 MG* 2 ML VIAL IV SCH (07:06)
[2020-01-08] MEDS: Tiotropium Brom/Olodaterol MDI INH SCH (07:23)
[2020-01-08] MEDS ORDERED: Albuterol 2.5 MG/3 ML NEB.SOL* (0.083%) INH PRN (09:31)
[2020-01-08] MEDS: levETIRAcetam TAB* 500 MG PO SCH ×2 (09:36→19:38)
[2020-01-08] MEDS: Aspirin EC TAB* 81 MG TAB.EC PO SCH (09:36)
[2020-01-08] MEDS: Metoprolol Tartrate TAB* 25 MG PO SCH ×2 (09:38→19:39)
--- NOTE | 2020-01-08 09:38 | PN ---
Subjective Date of Service: 01/08/20 Interval History: Patient is less wheezy today, she felt better in breathing. Able to wean down O2 to 1L Spoke to daughter Katalina over phone, daughter was concerned about premature discharge as it happened one time before. She also requested to keep the patient for at least "another 3 days" to get "fully recovered". I explained to her that this was against hospital policy, I updated her patient's condition, and emphasized the goal of "off oxygen" as discharge criteria for now. She accepted and mentally prepared for potential discharge in the next 1 day or two Objective Active Medications: Acetaminophen (Tylenol Tab*) 650 mg PO Q4H PRN PRN Reason: FEVER/PAIN Albuterol (Ventolin 2.5 Mg/3 Ml Neb.Terri*) 2.5 mg INH [id number] AWAKE [facility] Stop: 01/08/20 11:09 Last Admin: 01/08/20 07:23 Dose: 2.5 mg Aspirin (Aspirin Ec Tab*) 81 mg PO DAILY [facility] Last Admin: 01/07/20 08:22 Dose: 81 mg Calcium Carbonate (Calcium Carbonate Tab*) 1,250 mg PO QPM [facility] Last Admin: 01/07/20 18:40 Dose: 1,250 mg Enoxaparin Sodium (Lovenox(*)) 30 mg SUBCUT Q24H [facility] Last Admin: 01/07/20 20:19 Dose: 30 mg Guaifenesin/Codeine Phosphate (Robitussin Ac 100mg/10mg In 5 Ml) 5 ml PO Q6H PRN PRN Reason: COUGH Last Admin: 01/07/20 20:19 Dose: 5 ml Azithromycin (Zithromax 500 Mg/250 Ml) 500 mg in 250 mls @ 250 mls/hr IVPB Q24H [facility] Stop: 01/09/20 19:59 Last Admin: 01/07/20 20:19 Dose: 250 mls/hr Ceftriaxone Sodium 1 gm/ (Sodium Chloride) 50 mls @ 100 mls/hr IVPB Q24H [facility] Levetiracetam (Keppra Tab*) 500 mg PO BEDTIME [facility] Last Admin: 01/07/20 20:19 Dose: 500 mg Levetiracetam (Keppra Tab*) 250 mg PO DAILY [facility] Last Admin: 01/07/20 08:23 Dose: 250 mg Magnesium Oxide (Magox 400 Tab*) 400 mg PO QPM [facility] Last Admin: 01/07/20 18:39 Dose: 400 mg Methylprednisolone Sodium Succinate (Solu-Medrol 125mg *) 40 mg IV BID [facility] Metoprolol Tartrate (Lopressor Tab*) 12.5 mg PO Q12HR [facility] Last Admin: 01/07/20 20:18 Dose: 12.5 mg Potassium Chloride (Klor Con Er Tab*) 20 meq PO DAILY [facility] Last Admin: 01/07/20 08:22 Dose: 20 meq Sertraline HCl (Zoloft*) 50 mg PO DAILY [facility] Last Admin: 01/07/20 08:22 Dose: 50 mg Tiotropium [place]/Olodaterol (Stiolto Respimat Inh [place] (60 Puff)) 2 puff INH DAILY [facility] Last Admin: 01/08/20 07:23 Dose: 2 puff Vital Signs - 8 hr 01/08/20 01/08/20 01/08/20 03:15 07:15 07:25 Temperature 97.4 F 97.6 F Pulse Rate 66 68 74 Respiratory 16 16 17 Rate Blood Pressure 132/59 121/58 (mmHg) O2 Sat by Pulse 100 100 97 Oximetry 01/08/20 07:26 Temperature Pulse Rate 72 Respiratory 17 Rate Blood Pressure (mmHg) O2 Sat by Pulse 97 Oximetry Oxygen Devices in Use Now: Nasal Cannula Exam: Appearance: wheezing sound heard away from patient, lying down comfortable in bed. Eyes: No Scleral Icterus, PERRLA Ears/Nose/Mouth/Throat: Mucous Membranes Moist Neck: NL Appearance and Movements; NL JVP, Trachea Midline Respiratory: Symmetrical Chest Expansion and Respiratory Effort, wheezing greatly improved, but still diffuse Cardiovascular: NL Sounds; No Murmurs; No JVD, no peripheral edema Abdominal: NL Sounds; No Tenderness; No Distention Extremities: no cyanosis, no edema Neurological: Alert and Oriented x 4 Result Diagrams: 01/07/20 05:39 01/07/20 05:39 Assess/Plan/Problems-Billing Majo Pickett is a 87 y/o female with bearing a recent diagnosis asthma without LFT, old stroke and seizure, found to have severe dyspnea and wheezing, likely asthma exacerbation. - Patient Problems (1) Asthma exacerbation Current Visit: Yes Status: Acute Code(s): J45.901 - UNSPECIFIED ASTHMA WITH (ACUTE) EXACERBATION SNOMED Code(s): 094826385 Comment: - recent diagnosis of asthma/COPD, no lung function test done, on Umeclidin/vilant before admisison - other differential for her wheezing including heart failure (cardiac wheeze), viral bronchiolitis - significant wheezing with no cxr changes, improving with regular nebulizer and steroid - Decrease iv solu-medru to 40mg Q12h for now - neb prn - iv ceftriaxone and azithromycin for possible left lower zone infiltrate (Abx starting 01/05) (2) Elevated troponin Current Visit: Yes Status: Acute Code(s): R79.89 - OTHER SPECIFIED ABNORMAL FINDINGS OF BLOOD CHEMISTRY SNOMED Code(s): 339066852 Comment: - downtrending - no cardiac sx, ekg no new ischemic changes (3) BO (acute kidney injury) Current Visit: Yes Status: Acute Code(s): N17.9 - ACUTE KIDNEY FAILURE, UNSPECIFIED SNOMED Code(s): 55982495 Comment: mild creatinine bump, i feel it's more likely dehydration was initially hydrated and downtrending, now increased again with lasix overnight will continue to trend (4) Hypertension Current Visit: No Status: Acute Code(s): I10 - ESSENTIAL (PRIMARY) HYPERTENSION SNOMED Code(s): 74786614 Comment: - came in with hypertension BP in 180-190mmhg, amlodipine added - now running low, will hold off amlodipine - continue home med metoprolol (5) Seizure disorder Current Visit: No Status: Acute Code(s): G40.909 - EPILEPSY, UNSP, NOT INTRACTABLE, WITHOUT STATUS EPILEPTICUS SNOMED Code(s): 909994977 Comment: - Continue Keppra (6) DVT prophylaxis Current Visit: No Status: Acute Code(s): WVS5584 - SNOMED Code(s): 074415485 Comment: - Heparin SQ Status and Disposition: Inpatient Medicine. 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 Ddx includes cardiac source of wheeze, new dx of HFpEF, though improving with treatment of bronchospasm. #Hypoxic Resp Failure: DDx as above -Taper steroids from 80 q 8 to 40 IV BID, then 40IV q day starting 01/07, on 01/08 change to oral -Downgrade abx, no clear white count or e/o PNA on CXR, can treat with CTX/ Azithro in case there was early PNA, azithro alone will help with inflammation -Continue albuterol nebs, optimized on LAMA, not on ICS but on systemic steroids #CVA w/ above deficits: -Continue Keppra -Optimized on 12/05 prevention asa -No behavioral issues #[place] disturbances: Replete as able #DVT: Lovenox Dispo-Pending resp improvement, from CR, may be stable for d/c if resp status improves and able to wean PT OT ordered, CR resident at baseline. Attestation: This service has been performed in part by a resident under the direction of a teaching physician.I, Cathy Cueva, performed the service, or was physically present during the critical, or zamudio portions of the service, furnished by the resident. I participated in the management of the patient.
[2020-01-08] MEDS: Sertraline* 50 MG TAB PO SCH (09:39)
[2020-01-08] MEDS: Potassium Chlor TAB* 20 MEQ TAB.ER PO SCH (09:39)
[2020-01-08] MEDS: Cefepime 1 GM in Dextrose(*) 1 GM/50 ML BAG IV SCH (09:51)
[2020-01-08] MEDS ORDERED: cefTRIAXone(*) 1 GM in NS 0.9% 50 ML* 50 ML IVPB SCH (10:00)
[2020-01-08] MEDS: Calcium Carbonate TAB* 1250 MG (CALCIUM 500 MG) PO SCH (17:06)
[2020-01-08] MEDS: Magnesium Oxide TAB* 400 MG PO SCH (17:06)
[2020-01-08] MEDS: Azithromycin 500 mg/250 ml NS 500 MG/250 ML BAG IVPB SCH (19:37)
[2020-01-08] MEDS: Enoxaparin(*) 30 MG/0.3 ML SYR SUBCUT SCH (19:38)
[2020-01-08] MEDS: methylPREDNISolone SOD 40 MG* 1 ML VIAL IV SCH (19:39)
[2020-01-09] MEDS: Tiotropium Brom/Olodaterol MDI INH SCH (08:20)
--- NOTE | 2020-01-09 08:24 | PN ---
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 Ddx includes cardiac source of wheeze, new dx of HFpEF, though improving with treatment of bronchospasm. Overnight VSS no acute events, remains off O2 Labs stable This morning, reports ate breakfast feeling "much better." NO further CP or SOB , no wheezing. No GI or MSK complaints. Not keen on returning to [facility], but she tells me "I'll never want to go back" - reports she has been voiding freely and thinks she had a BM already. Oriented to place, year, and self but not event or specific date. Objective Active Medications: Acetaminophen (Tylenol Tab*) 650 mg PO Q4H PRN PRN Reason: FEVER/PAIN Albuterol (Ventolin 2.5 Mg/3 Ml Neb.Terri*) 2.5 mg INH [id number] AWAKE PRN PRN Reason: SOB/WHEEZING Aspirin (Aspirin Ec Tab*) 81 mg PO DAILY [facility] Last Admin: 01/08/20 09:36 Dose: 81 mg Calcium Carbonate (Calcium Carbonate Tab*) 1,250 mg PO QPM [facility] Last Admin: 01/08/20 17:06 Dose: 1,250 mg Enoxaparin Sodium (Lovenox(*)) 30 mg SUBCUT Q24H [facility] Last Admin: 01/08/20 19:38 Dose: 30 mg Guaifenesin/Codeine Phosphate (Robitussin Ac 100mg/10mg In 5 Ml) 5 ml PO Q6H PRN PRN Reason: COUGH Last Admin: 01/07/20 20:19 Dose: 5 ml Azithromycin (Zithromax 500 Mg/250 Ml) 500 mg in 250 mls @ 250 mls/hr IVPB Q24H [facility] Stop: 01/09/20 19:59 Last Admin: 01/08/20 19:37 Dose: 250 mls/hr Ceftriaxone Sodium 1 gm/ (Sodium Chloride) 50 mls @ 100 mls/hr IVPB Q24H [facility] Last Admin: 01/08/20 11:12 Dose: 100 mls/hr Levetiracetam (Keppra Tab*) 500 mg PO BEDTIME [facility] Last Admin: 01/08/20 19:38 Dose: 500 mg Levetiracetam (Keppra Tab*) 250 mg PO DAILY [facility] Last Admin: 01/08/20 09:36 Dose: 250 mg Magnesium Oxide (Magox 400 Tab*) 400 mg PO QPM [facility] Last Admin: 01/08/20 17:06 Dose: 400 mg Methylprednisolone Sodium Succinate (Solu-Medrol 40 Mg) 40 mg IV BID [facility] Last Admin: 01/08/20 19:39 Dose: 40 mg Metoprolol Tartrate (Lopressor Tab*) 12.5 mg PO Q12HR [facility] Last Admin: 01/08/20 19:39 Dose: 12.5 mg Potassium Chloride (Klor Con Er Tab*) 20 meq PO DAILY [facility] Last Admin: 01/08/20 09:39 Dose: 20 meq Sertraline HCl (Zoloft*) 50 mg PO DAILY [facility] Last Admin: 01/08/20 09:39 Dose: 50 mg Tiotropium [place]/Olodaterol (Stiolto Respimat Inh [place] (60 Puff)) 2 puff INH DAILY [facility] Last Admin: 01/09/20 08:20 Dose: 2 puff Vital Signs - 8 hr 01/09/20 01/09/20 00:00 03:15 Temperature 98.1 F Pulse Rate 63 Respiratory 18 Rate Blood Pressure 135/49 (mmHg) O2 Sat by Pulse 96 94 Oximetry Oxygen Devices in Use Now: None Appearance: Elderly woman with glasses in NAD, speaking full sentences Eyes: No Scleral Icterus, PERRLA Ears/Nose/Mouth/Throat: NL Teeth, Lips, Gums Neck: NL Appearance and Movements; NL JVP, Trachea Midline Respiratory: Symmetrical Chest Expansion and Respiratory Effort, - - 1 E wheeze , otherwise clear Cardiovascular: NL Sounds; No Murmurs; No JVD, - - 2/6 JACQUIE Abdominal: NL Sounds; No Tenderness; No Distention, No Hepatosplenomegaly Lymphatic: No Cervical Adenopathy Extremities: No Edema Skin: No Rash or Ulcers Neurological: - - Oriented per HPI Result Diagrams: 01/07/20 05:39 01/07/20 05:39 Microbiology and Other Data: Microbiology 01/06/20 12:14 Aerobic Blood Culture - Preliminary Blood Venous No Growth Day 2 Anaerobic Blood Culture - Preliminary No Growth Day 2 01/06/20 12:14 Aerobic Blood Culture - Preliminary Blood Venous No Growth Day 2 Anaerobic Blood Culture - Preliminary No Growth Day 2 Diagnostic Imaging: CXR 01/05 IMPRESSION: #. Stigmata of obstructive lung disease. #. Mild blunting of the costophrenic angles which may reflect small pleural effusions or simply sequela of hyperinflation. 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 Ddx includes cardiac source of wheeze, new dx of HFpEF, though improving with treatment of bronchospasm and swith CXR showing obstructive dz most likely this is bronchospasm. - Patient Problems (1) Acute hypoxemic respiratory failure Current Visit: No Status: Acute Code(s): J96.01 - ACUTE RESPIRATORY FAILURE WITH HYPOXIA SNOMED Code(s): 982260300 Comment: - 2/2 to bronchospasm and new dx of asthma/COPD, now off O2 with 4 days of steroids, nebs and abx - Continue home inhaler tx - Consider outpt echo, though no e/o sig volume as cause of hypoxia - No tachycardia (2) Asthma exacerbation Current Visit: Yes Status: Acute Code(s): J45.901 - UNSPECIFIED ASTHMA WITH (ACUTE) EXACERBATION SNOMED Code(s): 385487908 Comment: - Recent diagnosis of asthma/COPD, no lung function test done, on Umeclidin/ vilant before admisison - other differential for her wheezing including heart failure (cardiac wheeze), viral bronchiolitis - Significant wheezing with no cxr changes, improving with regular nebulizer and steroid - Decrease IV Solumedrol to 40mg yesterday, last dose 8AM, change to Pred 50mg going home - IV ceftriaxone and azithromycin for possible left lower zone infiltrate (Abx starting 01/05), transition to Azithro and Cefdinir oral end date 01/11 (3) Elevated troponin Current Visit: Yes Status: Acute Code(s): R79.89 - OTHER SPECIFIED ABNORMAL FINDINGS OF BLOOD CHEMISTRY SNOMED Code(s): 812899263 Comment: - Type II (4) Hypertension Current Visit: No Status: Acute Code(s): I10 - ESSENTIAL (PRIMARY) HYPERTENSION SNOMED Code(s): 85285202 Comment: - Came in with hypertension BP in 180-190mmhg, now well controlled - continue home med metoprolol (5) History of CVA (cerebrovascular accident) Current Visit: No Status: Acute Code(s): Z86.73 - PRSNL HX OF TIA (TIA), AND CEREB INFRC W/O RESID DEFICITS SNOMED Code(s): 094296932 Comment: - Parietal region, 1994 - No acute neurological deficits - Continue aspirin (6) Seizure disorder Current Visit: No Status: Acute Code(s): G40.909 - EPILEPSY, UNSP, NOT INTRACTABLE, WITHOUT STATUS EPILEPTICUS SNOMED Code(s): 549870603 Comment: - Continue Keppra (7) DVT prophylaxis Current Visit: No Status: Acute Code(s): JWE0885 - SNOMED Code(s): 858480398 Comment: - LMWH (8) Full code status Current Visit: Yes Status: Acute Code(s): Z78.9 - OTHER SPECIFIED HEALTH STATUS SNOMED Code(s): 169033999 Status and Disposition: Inpatient Medicine. DC To CR, back at baseline.
[2020-01-09 08:32] VITALS: BP 154/63
[2020-01-09] MEDS: Aspirin EC TAB* 81 MG TAB.EC PO SCH (08:37)
[2020-01-09] MEDS: Sertraline* 50 MG TAB PO SCH (08:37)
[2020-01-09] MEDS: Potassium Chlor TAB* 20 MEQ TAB.ER PO SCH (08:37)
[2020-01-09] MEDS: methylPREDNISolone SOD 40 MG* 1 ML VIAL IV SCH (08:37)
[2020-01-09] MEDS: levETIRAcetam TAB* 500 MG PO SCH (08:38)
[2020-01-09] MEDS: Metoprolol Tartrate TAB* 25 MG PO SCH (08:39)
[2020-01-09] MEDS ORDERED: Cefdinir cap* 300 MG CAP PO SCH (10:30)
--- NOTE | 2020-01-09 12:34 | PN ---
Hospitalist Progress Note Date of Service: 01/09/20 Met with daughter and pt just prior to d/c and discussed her goals of care and overall prognosis of which they had anxiety Pt is very clear DNR DNI, we discussed concpet of palliative and hospice and they were not ready for this but said it gave them "something to think about" as pt has had some FTT since being convereted to [facility] director multimedia.
--- NOTE | 2020-01-09 15:39 | DS ---
DISCHARGE SUMMARY: DATE OF ADMISSION: 01/06/20 DATE OF DISCHARGE: 01/09/20 DISPOSITION AT THE TIME OF DISCHARGE: Stable to be discharged to [facility] where the patient is a resident at that correction facility and this discharge summary may also act as an H and P for readmission to [facility]. PRIMARY DIAGNOSES: 1. Hypoxic respiratory failure secondary to asthma versus chronic obstructive pulmonary disease exacerbation. 2. Community-acquired pneumonia. 3. Elevated troponin secondary to demand ischemia. SECONDARY DIAGNOSES: 1. History of cerebrovascular accident with residual cognitive impairment and seizure disorder. 2. Hypertension. 3. Depression. 4. Anxiety. 5. Underlying fairly new diagnosis of either chronic obstructive pulmonary disease with no PFTs on file versus reactive airway disease versus asthma. MEDICATIONS AT THE TIME OF DISCHARGE: 1. Acetaminophen 650 mg p.o. q.4 hours p.r.n. for pain or fever. 2. Aspirin 81 mg p.o. daily. 3. Calcium carbonate tab 500 mg q.p.m. 4. Keppra 250 mg p.o. daily and 500 mg p.o. q.h.s. 5. Magnesium oxide 400 mg p.o. q.p.m. 6. Metoprolol tartrate 12.5 mg p.o. b.i.d. 7. Potassium chloride 20 mEq p.o. daily. 8. Sertraline 50 mg p.o. daily. 9. Anoro Ellipta 1 puff inhaled daily. 10. Ipratropium albuterol nebulizers q.8 scheduled for the first 3 days status post discharge and then can move to p.r.n. for shortness of breath or wheezing. 11. Prednisone 50 mg p.o. daily starting 01/10/20 for 3 days status post discharge, followed by 40 mg prednisone starting 01/13/20 for 3 days and followed by 20 mg of prednisone p.o. daily starting 01/16/20 and to complete on 01/18/20 for prednisone taper. 12. Azithromycin 250 mg p.o. daily 3 days status post discharge. 13. Cefdinir 300 mg p.o. b.i.d. 3 days status post discharge. Medication changes on this admission are the addition of azithromycin, cefdinir , prednisone taper as well as moving ipratropium albuterol nebulizers or DuoNeb to standing instead of p.r.n. for 2 days status post discharge and then may move to p.r.n. if the patient tolerates. HISTORY OF PRESENT ILLNESS AND HOSPITAL COURSE: This is an 89-year-old female who visits [facility] with the above past medical history who presented on 03/22 with diffuse wheezing and hypoxia. The patient had had upper respiratory infection like symptoms and decreased appetite for 2 days prior to her admission. In the emergency room, she was found to be hypoxic requiring oxygen. She was also hypertensive, but afebrile, not tachycardic. A chest x- ray showed small left pleural effusion versus pleural thickening versus hyperinflation that could be consistent with early community-acquired pneumonia and asthma exacerbation. Furthermore, her labs were notable for elevated lactic acid, mildly elevated troponin, and a BNP of 190. Because of her hypoxia, concerning findings for COPD versus asthma with underlying early community- acquired pneumonia and elevated troponin coupled with hypertension, the hospitalist team was asked to admit the patient and the hospital course by problems is as follows: 1. Hypoxic respiratory failure. This is thought to be secondary to bronchospasm as the patient got significant improvement with treatment of prednisone, antibiotics, and bronchodilators. She was able to be titrated off oxygen on 01/08/20 and has been stable off oxygen, doing well through day of discharge on 01/09/20. She should be discharged on prednisone and antibiotics as per below. Overall, the etiology of her hypoxia is thought to be from an underlying undiagnosed COPD or asthma. She may have a second hand smoking history component. The chest x-ray shows hyperinflation and stigmata of chronic obstructive pulmonary disease, although this patient has no PFTs on file as they have never been done. When she is well enough, PFTs would be helpful in determining FEV1/FVC. The differential obviously for her acute hypoxia is heart failure with preserved ejection fraction, although her last echocardiogram shows mild aortic stenosis from April 2019. There was no evidence of significant volume overload or flash pulmonary edema that led to her symptoms, and she improved with prednisone steroids and without any need for volume. Her BNP was only 190. If she has recurrent symptoms, it is reasonable to consider ordering an echo in the future. 2. Asthma exacerbation versus COPD exacerbation in the setting of underlying early community-acquired pneumonia. The patient was placed on methylprednisone , DuoNebs, and got significant improvement. This should be continued with prednisone taper as outlined per above on discharge as well as standing nebs as long as the patient can tolerate and then can move to p.r.n. as needed. PFTs should be explored in the future. 3. Community-acquired pneumonia. She had possible left-sided infiltrate. She was placed on ceftriaxone and azithromycin with significant improvement and can be transitioned to cefdinir and azithromycin on discharge for 3 days. 4. CVA with residual seizure disorder. The patient had no complication. She is with mild cognitive impairment but generally otherwise well at baseline. Continued her Keppra. 5. Hypertension. The patient had significant hypertension on admission. This is thought to be secondary to her respiratory distress. She was given a dose of amlodipine with significant improvement and needed no further additional blood pressure medications other than her underlying metoprolol, which was continued. 6. Elevated troponin. The patient had mildly elevated troponin at 0.04 on admission, which peaked at 0.09 and then trended back down. This is thought to be secondary to demand ischemia in the setting of respiratory distress. 7. Elevated lactic acid. This is secondary to respiratory distress. No evidence of SIRS or sepsis on admission. 8. DVT prophylaxis: The patient was kept on low molecular weight heparin. On the day of discharge, the patient is tolerating diet, voiding freely, she has been off oxygen for 24 hours and is feeling back to her baseline. She resides at [facility] and is stable to be returning there. Plan of care was discussed with the patient and daughter. LABS AND STUDIES DURING THIS HOSPITALIZATION: Labs on 01/07/20, white blood cell count 6.6, hemoglobin of 13, hematocrit 39, platelets 211. BMP with sodium 139, potassium 4.8, chloride 104, carbon dioxide 28, anion gap 7, BUN 25 , creatinine 1.03, calcium 8.1. AST/ALT 18 and 15, alk phos 71. Troponin at 0.03 on last reading, asymptomatic, and BNP of 190. Influenza A and B rapid strep testing was negative. Chest x-ray on 01/06/20 showed stigmata of chronic obstructive pulmonary disease. EKG showed sinus tachycardia or sinus rhythm with no evidence of ischemia. CONSULTS DURING THIS HOSPITALIZATION INCLUDED: None. ITEMS TO FOLLOW UP ON STATUS POST DISCHARGE: 1. Asthma versus COPD diagnosis as per above, the patient would benefit from PFTs or echo for further differentiation of her other underlying bronchospasm. Continue prednisone taper 50 mg for 3 days, 40 mg for 3 days, 20 mg for 3 days. and then stop. The patient will need ipratropium/albuterol or DuoNeb along with her Anoro Ellipta for optimization. Could consider starting montelukast if symptoms of moderate persistent asthma are continued, although likely she had a virus or early community-acquired pneumonia which triggered this event. 2. Community-acquired pneumonia. She had very soft findings for this with a possible left-sided early infiltrate. Nonetheless, we will cover with azithromycin and cefdinir for antiinflammatory benefits. 3. Code Status: Of note, this patient is clearly DNR DNI in this hospitlization and MOLST reflects this TIME SPENT: Forty-five minutes was spent on planning of this discharge, over half of that was spent directly at the bedside of the patient providing direct patient care and coordinating care with the patient's family and nursing care. If there are any questions of care of this patient, please do not hesitate to reach out and contact me directly, my cell phone is [phone]. [id number]/[facility] #: [id number] PATRIC
== END 2020-01-09 14:20 | DRG 193 ==
LOC: ED 11:18 → MEDTELE 16:59
PROVIDERS: ADMIT Internal Medicine; ATTEND Internal Medicine
DX: J18.9 Pneumonia, unspecified organism (principal); J96.01 Acute respiratory failure with hypoxia; J44.1 Chronic obstructive pulmonary disease with (acute) exacerbation; J45.901 Unspecified asthma with (acute) exacerbation; I24.8 Other forms of acute ischemic heart disease; N17.9 Acute kidney failure, unspecified; J44.0 Chronic obstructive pulmonary disease with (acute) lower respiratory infection; G40.909 Epilepsy, unspecified, not intractable, without status epilepticus; I10 Essential (primary) hypertension; F32.9 Major depressive disorder, single episode, unspecified; K21.9 Gastro-esophageal reflux disease without esophagitis; M19.90 Unspecified osteoarthritis, unspecified site; Z96.651 Presence of right artificial knee joint; Z96.641 Presence of right artificial hip joint; F41.9 Anxiety disorder, unspecified; Z66 Do not resuscitate; I08.0 Rheumatic disorders of both mitral and aortic valves; R41.3 Other amnesia; H54.7 Unspecified visual loss; I69.319 Unspecified symptoms and signs involving cognitive functions following cerebral infarction; Z79.82 Long term (current) use of aspirin; Z79.899 Other long term (current) drug therapy; Z88.8 Allergy status to other drugs, medicaments and biological substances; Z88.1 Allergy status to other antibiotic agents; Z90.710 Acquired absence of both cervix and uterus
CPT/HCPCS: 36415; 71045; 80048; 80053; 83605; 83735; 83880; 84484; 85025; 85610; 85730; 87040; 93005; 94640; 96360; 99284; A9270-GY; J0456; J0692; J0696; J1650; J1940; J2920; J2930; J3535

== ENCOUNTER 2020-01-29 06:15 | Emergency (ER) | payer MEDICARE ==
[2020-01-29] MEDS ORDERED: diPHENhydraMINE IV* 50 MG/ML 1 ml VIAL (BENADRYL) IV ONE (06:28)
--- NOTE | 2020-01-29 06:29 | ED ---
Shortness of Breath - HPI Summary HPI Summary: Patient is an 89 year-old female arriving via ambulance to [facility] from [facility] with a chief complaint of shortness of breath since 0100. She reports a history of similar episodes requiring intubations, although the patient is now DNI. She was admitted [place] [facility] on 01/06/2020 for pneumonia vs COPD and discharged on 01/09/2020 with course of Ipratropium neb, tapered Prednisone, Azithromycin, and Cefdinir. This morning she woke up with shortness of breath and dry cough. Staff checked temp to be 99.3F. They administered a neb treatment. When EMS arrived, the patient was on 4L O2 satting 98%. EMS notes audible wheezing. Symptoms rated 8/10 in severity now. No recent travel. No known COVID-19 exposure. Past medical history includes acute hypoxemia respiratory failure, asthma, GERD, arthritis, CVA, seizures. Nonsmoker, no EtOH, no substance use. Medications reviewed. Allergies noted. - History of Current Complaint Time Seen by Provider: 01/29/20 06:15 Hx Obtained From: Patient Onset/Duration: Sudden Onset, Lasting Hours, Still Present Current Severity: Moderate Dyspnea At: Rest Aggravating Factors: Nothing Alleviating Factors: Nothing Associated Signs & Symptoms: Cough (Nonproductive) Related History: Healthcare Acquired: Inpatient Status Within Last 30 Days - Allergy/Home Medications Allergies/Adverse Reactions: Allergies Allergy/AdvReac Type Severity Reaction Status Date / Time lamotrigine Allergy Severe See Comment Verified 01/29/20 12:18 cefuroxime Allergy Unknown Verified 01/29/20 12:18 Reaction Details Home Medications: Home Medications Acetaminophen TAB* [Tylenol TAB*] 650 mg PO Q4H PRN 05/25/18 [History Confirmed 01/29/20] Calcium Carbonate TAB* 500 mg PO QPM 05/25/18 [History Confirmed 01/29/20] Magnesium Oxide TAB* [MagOx 400 TAB*] 400 mg PO QPM 05/25/18 [History Confirmed 01/29/20] Metoprolol Tartrate TAB* [Lopressor TAB*] 12.5 mg PO Q12HR tab 05/27/18 [Rx Confirmed 01/29/20] Sertraline* [Zoloft*] 50 mg PO DAILY 01/30/19 [History Confirmed 01/29/20] Aspirin [Adult Aspirin Regimen] 81 mg PO DAILY 12/09/19 [History Confirmed 01/28] Umeclidin/Vilant 62.5 MDI(NF) [ANORO 62.5/25 Ellipta DEVICE (NF)] 1 puff INH DAILY 12/09/19 [History Confirmed 01/29/20] levETIRAcetam [Levetiracetam] 250 mg PO DAILY 12/09/19 [History Confirmed ] Potassium Chloride [Klor-Con M20] 20 meq PO DAILY 01/06/20 [History Confirmed ] levETIRAcetam [Levetiracetam] 500 mg PO BEDTIME 01/06/20 [History Confirmed ] Ipratropium 0.5MG/2.5ML NEB* [Atrovent 0.5 MG NEB.ALLISON*] 0.5 mg INH Q8H #0 [Rx Confirmed 01/29/20] Albuterol HFA INHALER* [Ventolin HFA Inhaler*] 2 puff INH Q4H PRN 30 Days #1 mdi 01/29/20 [Rx] PMH/Surg Hx/FS Hx/Imm Hx Endocrine/Hematology History: Denies: Hx Diabetes Cardiovascular History: Denies: Hx Hypertension, Hx Pacemaker/ICD Respiratory History: Reports: Hx Asthma, Other Respiratory Problems/Disorders - acute hypoxemia respiratory failure Denies: Hx Chronic Obstructive Pulmonary Disease (COPD) GI History: Reports: Hx Gastroesophageal Reflux Disease History: Denies: Hx Benign Prostatic Hyperplasia, Hx Chronic Renal Failure, Hx Dialysis, Hx Renal Disease Musculoskeletal History: Reports: Hx Arthritis, Hx Orthopedic Injury - R knee, Other Musculoskeletal History - R TKR Sensory History: Denies: Hx Contacts or Glasses, Hx Hearing Aid Opthamlomology History: Denies: Hx Contacts or Glasses Neurological History: Reports: Hx CVA Psychiatric History: Denies: Hx Attention Deficit Hyperactivity Disorder, Hx Panic Disorder - Surgical History Surgical History: Yes Surgery Procedure, Year, and Place: TOTAL RT KNEE, 2002, [facility]. TOTAL RT HIP, [place], [place], unsure of year. RT FEMUR ORIF APRIL 2018. HYSTERECTOMY Hx Anesthesia Reactions: No Infectious Disease History: No Infectious Disease History: Denies: Traveled Outside the [place] in Last 30 Days - Family History Known Family History: Positive: Cardiac Disease - [place], Other - breast cancer - Social History Alcohol Use: None Hx Substance Use: No Substance Use Type: Reports: None Hx Tobacco Use: No Smoking Status (MU): Never Smoked Tobacco - Additional Comments History Additional Comments: acute hypoxemia respiratory failure, asthma, GERD, arthritis, CVA, seizures Review of Systems - ROS Summary Review of Systems Summary: Home Medications Medication Instructions Recorded Confirmed Type Acetaminophen TAB* [Tylenol TAB*] 650 mg PO Q4H PRN 05/25/18 01/29/20 History Calcium Carbonate TAB* 500 mg PO QPM 05/25/18 01/29/20 History Magnesium Oxide TAB* [MagOx 400 400 mg PO QPM 05/25/18 01/29/20 History TAB*] Metoprolol Tartrate TAB* 12.5 mg PO Q12HR tab 05/27/18 01/29/20 Rx [Lopressor TAB*] Sertraline* [Zoloft*] 50 mg PO DAILY 01/30/19 01/29/20 History Aspirin [Adult Aspirin Regimen] 81 mg PO DAILY 12/09/19 01/29/20 History Umeclidin/Vilant 62.5 MDI(NF) 1 puff INH DAILY 12/09/19 01/29/20 History [ANORO 62.5/25 Ellipta DEVICE (NF)] levETIRAcetam [Levetiracetam] 250 mg PO DAILY 12/09/19 01/29/20 History Potassium Chloride [Klor-Con M20] 20 meq PO DAILY 01/06/20 01/29/20 History levETIRAcetam [Levetiracetam] 500 mg PO BEDTIME 01/06/20 01/29/20 History Ipratropium 0.5MG/2.5ML NEB* 0.5 mg INH Q8H #0 01/09/20 01/29/20 Rx [Atrovent 0.5 MG NEB.ALLISON*] Positive: Fever - low-grade Positive: Shortness Of Breath, Cough - dry All Other Systems Reviewed And Are Negative: Yes Physical Exam - Summary Physical Exam Summary: General: Well-developed, Cachectic elderly female. No acute distress. HEENT: Normocephalic, Atraumatic. Eyes: Conjuctiva normal, PERRL. Oropharynx: Clear, mucous membranes moist, (-) exudates. Neck: Soft, FROM, (-) lymphadenopathy, (-) thyromegaly, (-) JVD. Cardiovascular: Normal sinus rhythm, (-) murmur. Lungs: On O2, Fair air exchange, (+) tight wheezing throughout, (-) rales, (-) rhonchi. Abdomen: Soft, non-tender, non-distended, (-) organomegaly, normal bowel sounds. Back: (-) CVA tenderness Extremities: No edema. Skin: Warm, dry, (-) rash. Neuro: Alert and oriented x3, moves all extremities equally. No ataxia. No gait disturbance. No sensory deficit. Normal strength, normal sensation. Psychiatric: Mood normal, affect flat. Triage Information Reviewed: Yes Vital Signs On Initial Exam: Initial Vitals Temp Pulse Resp BP Pulse Ox 99.7 F 77 20 130/69 99 01/29/20 06:17 01/29/20 06:17 01/29/20 06:17 01/29/20 06:17 01/29/20 06:17 Vital Signs Reviewed: Yes Procedures - Sedation Patient Received Moderate/Deep Sedation with Procedure: No Diagnostics - Vital Signs Vital Signs Temp Pulse Resp BP Pulse Ox 01/29/20 06:17 99.7 F 77 20 130/69 99 - Laboratory Result Diagrams: 01/29/20 06:36 01/29/20 06:36 Lab Statement: Any lab studies that have been ordered have been reviewed, and results considered in the medical decision making process. - EKG 0636 Cardiac Rate: NL - 81 BPM EKG Rhythm: Sinus Rhythm Summary of EKG Findings: EKG at 0636 reveals normal sinus rhythm with rate of 81 BPM, no acute changes, no ischemic changes. This EKG was reviewed and interpreted by Dr. Wayne. Course/Dx - Course Course Of Treatment: 89-year-old female presents from home by ambulance with shortness of breath. Awoke from sleep at 1 AM with shortness of breath. Recent history of pneumonia. Patient received a DuoNeb en route. Tight wheezing throughout. Given DuoNeb in the emergency room. Tylenol for headache. Workup pending. Signed out at change of shift. Patient received Duoneb and Benadryl in the ED. She was also given Tylenol for a headache. - Diagnoses Provider Diagnoses: Shortness of breath, Wheezing Discharge ED - Sign-Out/Discharge Documenting (check all that apply): Sign-Out Patient Signing out patient TO: Kayy Cazares - Patient is a sign-out to Dr. Kayy Cazares MD, at change of shift at 0700 on 01/29/20, pending meds, labs, CXR, Abd/Pel CT, and disposition. - Discharge Plan Condition: Stable Disposition: HOME Prescriptions: Albuterol HFA INHALER* [Ventolin HFA Inhaler*] 2 puff INH Q4H PRN 30 Days #1 mdi PRN Reason: Wheezing Patient Education Materials: Shortness of Breath (ED) Referrals: Danielle Stevenson NP [Primary Care Provider] - Additional Instructions: You were seen in the emergency department for breath. Your x-ray did not show pneumonia. You can take albuterol as needed every 4 hours for wheezing. If any studies were not completed at the time of discharge you will be called with the relevant results. Please follow up with your primary care doctor in next 2-3 days and return to emergency department for worsening or concerning symptoms. It was a pleasure taking care of you today. - Billing Disposition and Condition Condition: STABLE Disposition: Home - Attestation Statements Document Initiated by Tanibe: Yes Documenting Scribe: Nathalie Myers Provider For Whom Jese is Documenting (Include Credential): Marta Wayne MD Scribe Attestation: INathalie, scribed for Marta Wayne MD on 01/29/20 at 1916. Scribe Documentation Reviewed: Yes Provider Attestation: The documentation as recorded by the Nathalie spain accurately reflects the service I personally performed and the decisions made by me, Marta Wayne MD Status of Scribrohith Document: Viewed
[2020-01-29] MEDS ORDERED: Albuterol/Ipratropium NEB.SOL* Albuterol 2.5 MG/Ipratropium 0.5 MG 3 ML INH ONE ×2 (06:34→10:25)
[2020-01-29] MEDS ORDERED: Acetaminophen TAB* 325 MG PO ONE (06:48)
[2020-01-29 06:50] LABS: ABS Eosinophils 0.8 10^3/ul (0-0.6); ABS Monocytes 0.5 10^3/ul (0-0.8); ABS Neutrophils 4.5 10^3/ul (1.5-7.7); Eosinophil % 11.8 %; Hematocrit 34 % (35-47); Hemoglobin 11.1 g/dL (12.0-16.0); Mean Corpuscular HGB Conc 33 g/dL (31-36); Mean Corpuscular Hemoglobin 30 pg (27-31); Mean Corpuscular Volume 90 fL (80-97); Mean Platelet Volume 8.4 fL (7.4-10.4); Platelet Count 202 10^3/uL (150-450); Red Blood Count 3.74 10^6 /uL (3.70-4.87); Red Cell Distribution Width 14 % (10-15); White Blood Count 6.9 10^3/uL (3.5-10.8)
[2020-01-29 06:55] LABS: INR 0.97 (0.82-1.09)
--- OUTSIDE RECORDS SUMMARY | 2020-01-29 07:00 | XMS REPORT | Continuity of Care Document ---
:1930 External Reference #:[id number] Author Name Aureliano Valverde M.D.,FACP (transmitted by agent of provider Jillian Magana) Address [address] [address] Problems Active Problems Provider Date Closed supracondylar fracture of femur Sebastian Beasley M.D. Onset: 04/19/2018 History of cerebrovascular accident Sydney Castillo M.D. Onset: 04/18/2018 without residual deficits Hyperosmolality and or hypernatremia Gisel Vides NP Onset: 2017 Anemia Gisel Vides NP Onset: 04/19/2018 Dehydration FILIPE Saravia Onset: 04/20/2018 Syncope and collapse Jason Kang MD Onset: 05/25/2018 Late effects of cerebrovascular disease Jason Kang MD Onset: 05/25/2018 Disorder of brain Jason Kang MD Onset: 05/25/2018 Essential hypertension Jason Kang MD Onset: 05/25/2018 Periprosthetic fracture of hip Sebastian Beasley M.D. Onset: 06/10/2018 Monoarthritis of wrist Sebastian Beasley M.D. Onset: 08/26/2018 Social History Type Date Description Comments Sex Unknown ETOH Use Denies alcohol use nothing to drink for past nine years Tobacco Use Start: Unknown Patient has never smoked Smoking Status Reviewed: 01/26/19 Patient has never smoked Exercise Does not exercise Type/Frequency Allergies, Adverse Reactions, Alerts Description No Known Drug Allergies Medications Active Medications SIG Qnty Indications Ordering Date Provider Keppra 250mg po bid Meenu Kyle, 12/07/2018 250mg Tablets D.O. Multivitamin Adult 1 by mouth every Unknown day Tablets Aspirin take 1 by mouth Unknown 325mg Tablets daily Calcium Carbonate 1 tab by mouth in Unknown Antacid PM for indigestion 500mg Chewtabs Colace 1 tab by mouth Unknown 100mg Capsules twice daily Ferrousul 1 by mouth once a Unknown 325(65Fe) mg day Tablets Hydroxyzine HCL 1 tablets by mouth Unknown 25mg every 8 hours as Tablets needed for itching Lopressor take half a tab Unknown 25mg Tablets (12.5mg )by mouth twice a day Magnesium Oxide -MG 1 by mouth every Unknown Supplement evening 400mg Capsules MSM-Glucosamine 1 cap daily Unknown 250-250mg Capsules [place] 3 1 by mouth once a Unknown 1000mg Capsules day Oxycodone HCL 1 tab by mouth Unknown 5mg every 4 hours as Capsules needed pain Triamcinolone apply thin film to Unknown Acetonide affected area at 0.1% Cream bedtime Tylenol 2 tablets every 4 Unknown 325mg Capsules hours as needed for pain or fever Vitamin C 1 by mouth daily Unknown Tablets Zoloft 1 by mouth every Unknown 25mg Tablets day Immunizations Description No Information Available Vital Signs Date Vital Result Comment 08/23/2019 9:02am Weight 97.00 lb 04/15/2019 3:21pm Weight 91.00 lb Heart Rate 74 /min BP Systolic 122 mmHg BP Diastolic 66 mmHg Respiratory Rate 18 /min Body Temperature 98.0 F O2 % BldC Oximetry 96 % Results Description No Information Available Procedures Description No Information Available Medical Devices Description No Information Available Encounters Type Date Location Provider Dx Diagnosis Office Visit 01/09/2020 [place] Lito Cueva MD J96.91 Respiratory 9:32a Assoc,pc failure, Hospitalists unspecified with hypoxia I10 Essential (primary) hypertension J45.901 Unspecified asthma with (acute) exacerbation R79.89 Other specified abnormal findings of blood chemistry J90 Pleural effusion, not elsewhere classified Office Visit 01/08/2020 9:32a [facility] Cathy Cueva, N17.9 Acute kidney Assoc,pc MD failure, Hospitalists unspecified J45.901 Unspecified asthma with (acute) exacerbation I10 Essential (primary) hypertension G40.909 Epilepsy, unsp, not intractable, without status epilepticus [facility] 9:31a Asspan santiago M.D.,FACP failure, Hospitalists unspecified J45.901 Unspecified asthma with (acute) exacerbation I10 Essential (primary) hypertension [facility] R06[facility] Dyspnea, 9:31a pan Red M.D.,FACP unspecified Hospitalists R05 Cough I10 Essential (primary) hypertension Office Visit 12/11/2019 [facility] Sydney Castillo, J96.01 Acute respiratory 8:24a pan Red M.D. failure with Hospitalists hypoxia J98.01 Acute bronchospasm G40.909 Epilepsy, unsp, not intractable, without status epilepticus I10 Essential (primary) hypertension Office Visit 12/10/2019 [facility] Sydney Castillo, J96.01 Acute respiratory 9:24a pan Red M.D. failure with Hospitalists hypoxia J98.01 Acute bronchospasm E87.6 Hypokalemia Office Visit 12/09/2019 [facility] Sydney Castillo, J96.01 Acute respiratory 9:23a pan Red M.D. failure with Hospitalists hypoxia J98.01 Acute bronchospasm Office Visit 10/30/2019 10:00a [facility] Meenu Wright, F32.9 Major depressive D.O. disorder, single episode, unspecified G40.909 Epilepsy, unsp, not intractable, without status epilepticus I10 Essential (primary) hypertension F41.9 Anxiety disorder, unspecified Z66 Do not resuscitate Office Visit 08/23/2019 8:45a [facility] Marcy Sinclair, W19.xxxD Unspecified fall, DUMP GROUNDS CHECKER subsequent encounter S01.412D Laceration w/o foreign body of left cheek and TMJ area, subs R63.4 Abnormal weight loss F32.9 Major depressive disorder, single episode, unspecified G40.909 Epilepsy, unsp, not intractable, without status epilepticus I10 Essential (primary) hypertension F41.9 Anxiety disorder, unspecified M62.81 Muscle weakness (generalized) Z66 Do not resuscitate Assessments Date Code Description Provider 01/09/2020 J96.91 Respiratory failure, unspecified with Cathy Cueva MD hypoxia 01/09/2020 I10 Essential (primary) hypertension Cathy Cueva MD 01/09/2020 J45.901 Unspecified asthma with (acute) Cathy Cueva MD exacerbation 01/09/2020 R79.89 Other specified abnormal findings of Cathy Cueva MD blood chemistry 01/09/2020 J90 Pleural effusion, not elsewhere Cathy Cueva MD classified 01/08/2020 N17.9 Acute kidney failure, unspecified Cathy Cueva MD 01/08/2020 J45.901 Unspecified asthma with (acute) Cathy Cueva MD exacerbation 01/08/2020 I10 Essential (primary) hypertension Cathy Cueva MD 01/08/2020 G40.909 Epilepsy, unspecified, not Cathy Cueva MD intractable, without status epilepticus 01/07/2020 N17.9 Acute kidney failure, unspecified Aureliano Valverde M.D., FACP 01/07/2020 J45.901 Unspecified asthma with (acute) Aureliano Valverde M.D., FACP exacerbation 01/07/2020 I10 Essential (primary) hypertension Aureliano Valverde M.D.,FACP 01/06/2020 R06.00 Dyspnea, unspecified Aureliano Valverde M.D.,FACP 01/06/2020 R05 Cough Aureliano Valverde M.D.,FACP 01/06/2020 I10 Essential (primary) hypertension Aureliano Valverde M.D.,FACP 12/11/2019 J96.01 Acute respiratory failure with Sydney Castillo M.D. hypoxia 12/11/2019 J98.01 Acute bronchospasm Sydney Castillo M.D. 12/11/2019 G40.909 Epilepsy, unspecified, not Sydney Castillo M.D. intractable, without status epilepticus 12/11/2019 I10 Essential (primary) hypertension Sydney Castillo M.D. 12/10/2019 J96.01 Acute respiratory failure with Sydney Castillo M.D. hypoxia 12/10/2019 J98.01 Acute bronchospasm Sydney Castillo M.D. 12/10/2019 E87.6 Hypokalemia Sydney Castillo M.D. 12/09/2019 J96.01 Acute respiratory failure with Sydney Castillo M.D. hypoxia 12/09/2019 J98.01 Acute bronchospasm Sydney Castillo M.D. 10/30/2019 F32.9 Major depressive disorder, single Meenu Wright D.O. episode, unspecified 10/30/2019 G40.909 Epilepsy, unspecified, not Meenu Kyle D.O. intractable, without status epile 10/30/2019 I10 Essential (primary) hypertension Meenu Wright D.O. 10/30/2019 F41.9 Anxiety disorder, unspecified Meenu Wright D.O. 10/30/2019 Z66 Do not resuscitate Meenu Wright D.O. 10/25/2019 J06.9 Acute upper respiratory infection, Marcy Sinclair, DUMP GROUNDS CHECKER unspecified 08/23/2019 W19.xxxD Unspecified fall, subsequent Marcy Meyvinnie, DU[employer] GROUNDS CHECKER encounter 08/23/2019 S01.412D Laceration without foreign body of Marcy Sinclair, DUMP GROUNDS CHECKER left cheek and temporomandibular area, subsequent encounter 08/23/2019 R63.4 Abnormal weight loss Marcy Mathiasvinnie, DUMP GROUNDS CHECKER 08/23/2019 F32.9 Major depressive disorder, single Marcy Sinclair, DUMP GROUNDS CHECKER episode, unspecified 08/23/2019 G40.909 Epilepsy, unspecified, not Marcy Touchton, DUMP GROUNDS CHECKER intractable, without status epile 08/23/2019 I10 Essential (primary) hypertension Marcy Touchton, DUMP GROUNDS CHECKER 08/23/2019 F41.9 Anxiety disorder, unspecified Marcy Touchton, DUMP GROUNDS CHECKER 08/23/2019 M62.81 Muscle weakness (generalized) Marcy Mathiasvinnie, DUMP GROUNDS CHECKER 08/23/2019 Z66 Do not resuscitate Marcy Meyvinnie, DUMP GROUNDS CHECKER Plan of Treatment No Information Available Functional Status Description No Information Available Mental Status Description No Information Available Referrals Description No Information Available
--- OUTSIDE RECORDS SUMMARY | 2020-01-29 07:00 | XMS REPORT | Continuity of Care Document ---
:1930 External Reference #:[id number] Author Name Cathy Cueva MD (transmitted by agent of provider Jillian Magana) Address [address] [place] [address] Problems Active Problems Provider Date Closed supracondylar [...] Date Provider Keppra 250mg po bid Meenu Wright, 12/07/2018 250mg Tablets D.O. Multivitamin Adult 1 [...] MSM-Glucosamine 1 cap daily Unknown 250-250mg Capsules [place] 3 1 by mouth once a Unknown [...] Location Provider Dx Diagnosis Office Visit 01/09/2020 [facility] Cathy Cueva MD J96.91 Respiratory 9:32a Assoc,pc failure, Hospitalists unspecified with hypoxia I10 Essential (primary) hypertension J45.901 Unspecified asthma with (acute) exacerbation R79.89 Other specified abnormal findings of blood chemistry J90 Pleural effusion, not elsewhere classified Office Visit 01/08/2020 9:32a [facility] Cathy Cueva, N17.9 Acute kidney Assoc,pan ARELLANO failure, Hospitalists unspecified J45.901 Unspecified asthma with (acute) exacerbation I10 Essential (primary) hypertension G40.909 Epilepsy, unsp, not intractable, without status epilepticus [facility] 9:31a pan Red M.D.,FACP failure, Hospitalists unspecified J45.901 Unspecified asthma with (acute) exacerbation I10 Essential (primary) hypertension Office Visit 01/06/2020 [facility] Aureliano D. R06.00 Dyspnea, 9:31a pan Red M.D.,FACP unspecified Hospitalists R05 Cough I10 Essential (primary) hypertension Office Visit 12/11/2019 [facility] Sydney Castillo J96.01 Acute respiratory 8:24a pan Red M.D. failure with Hospitalists hypoxia J98.01 Acute bronchospasm G40.909 Epilepsy, unsp, not intractable, without status epilepticus I10 Essential (primary) hypertension Office Visit 12/10/2019 [facility] Sydney Castillo J96.01 Acute respiratory 9:24a pan Red M.D. failure with Hospitalists hypoxia J98.01 Acute bronchospasm E87.6 Hypokalemia Office Visit 12/09/2019 [facility] Sydney Castillo J96.01 Acute respiratory 9:23a pan Red M.D. failure with Hospitalists hypoxia J98.01 Acute bronchospasm Office Visit 10/30/2019 10:00a [facility] Meenu Wright, F32.9 Major depressive D.O. disorder, single episode, unspecified G40.909 Epilepsy, unsp, not intractable, without status epilepticus I10 Essential (primary) hypertension F41.9 Anxiety disorder, unspecified Z66 Do not resuscitate Office Visit 08/23/2019 8:45a [facility] Marcy Sinclair, W19.xxxD Unspecified fall, MOHS SURGEON/GENERAL DERMATOLOGIST subsequent encounter S01.412D Laceration w/o foreign body [...] unspecified 10/30/2019 G40.909 Epilepsy, unspecified, not Meenu Kyle, D.O. intractable, without status epile 10/30/2019 I10 Essential (primary) hypertension Meenu Wright D.O. 10/30/2019 F41.9 Anxiety disorder, unspecified Meenu Wright D.O. 10/30/2019 Z66 Do not resuscitate Meenu Wright D.O. 10/25/2019 J06.9 Acute upper respiratory infection, Marcy Mathiasvinnie, MOHS SURGEON/GENERAL DERMATOLOGIST unspecified 08/23/2019 W19.xxxD Unspecified fall, subsequent Marcyjulián Sinclair, MOHS SURGEON/GENERAL DERMATOLOGIST encounter 08/23/2019 S01.412D Laceration without foreign body of Marcy Sinclair, MOHS SURGEON/GENERAL DERMATOLOGIST left cheek and temporomandibular area, subsequent encounter 08/23/2019 R63.4 Abnormal weight loss Marcyjulián Sinclair, IVETTE 08/23/2019 F32.9 Major depressive disorder, single Marcy Meyvinnie, MOHS SURGEON/GENERAL DERMATOLOGIST episode, unspecified 08/23/2019 G40.909 Epilepsy, unspecified, not Marcy Touchton, MOHS SURGEON/GENERAL DERMATOLOGIST intractable, without status epile 08/23/2019 I10 Essential (primary) hypertension Marcy Sinclair, MOHS SURGEON/GENERAL DERMATOLOGIST 08/23/2019 F41.9 Anxiety disorder, unspecified Marcy Touchton, MOHS SURGEON/GENERAL DERMATOLOGIST 08/23/2019 M62.81 Muscle weakness (generalized) Marcy Sinclair, IVETTE 08/23/2019 Z66 Do not resuscitate Marcy Sinclair NP Plan of Treatment No Information Available Functional Status Description No Information Available Mental Status Description No Information Available Referrals Description No Information Available
--- OUTSIDE RECORDS SUMMARY | 2020-01-29 07:00 | XMS REPORT | Continuity of Care Document ---
:1930 External Reference #:[id number] Author Name Cathy Cueva MD (transmitted by agent of provider Jillian Magana) Address [address] [address] Problems Active Problems Provider Date Closed supracondylar [...] MSM-Glucosamine 1 cap daily Unknown 250-250mg Capsules [place] 3 1 by mouth once a Unknown [...] Location Provider Dx Diagnosis Office Visit 01/09/2020 [facility] Cathy Cueva MD J96.91 Respiratory 9:32a Assoc,pc failure, Hospitalists unspecified with hypoxia I10 Essential (primary) hypertension J45.901 Unspecified asthma with (acute) exacerbation R79.89 Other specified abnormal findings of blood chemistry J90 Pleural effusion, not elsewhere classified Office Visit 01/08/2020 9:32a [facility] Cathy Cueva, N17.9 Acute kidney Assoc,pan ARELLANO failure, Hospitalists unspecified J45.901 Unspecified asthma with (acute) exacerbation I10 Essential (primary) hypertension G40.909 Epilepsy, unsp, not intractable, without status epilepticus [facility] 9:31a pan Red M.D.,FACP failure, Hospitalists unspecified J45.901 Unspecified asthma with (acute) exacerbation I10 Essential (primary) hypertension Office Visit 01/06/2020 [facility] Aureliano D. R06.00 Dyspnea, 9:31a pan Red M.D.,FACP unspecified Hospitalists R05 Cough I10 Essential (primary) hypertension Office Visit 12/11/2019 [facility] Sydney Castillo J96.01 Acute respiratory 8:24a pan Red M.D. failure with Hospitalists hypoxia J98.01 Acute bronchospasm G40.909 Epilepsy, unsp, not intractable, without status epilepticus I10 Essential (primary) hypertension Office Visit 12/10/2019 [facility] Sydney Castillo J96.01 Acute respiratory 9:24a pan Red M.D. failure with Hospitalists hypoxia J98.01 Acute bronchospasm E87.6 Hypokalemia Office Visit 12/09/2019 [facility] Sydney Castillo J96.01 Acute respiratory 9:23a pan Red M.D. failure with Hospitalists hypoxia J98.01 Acute bronchospasm Office Visit 10/30/2019 10:00a [facility] Meenu Wright, F32.9 Major depressive D.O. disorder, single episode, unspecified G40.909 Epilepsy, unsp, not intractable, without status epilepticus I10 Essential (primary) hypertension F41.9 Anxiety disorder, unspecified Z66 Do not resuscitate Office Visit 08/23/2019 8:45a [facility] Marcy Sinclair, W19.xxxD Unspecified fall, [employer] subsequent encounter S01.412D Laceration w/o foreign body [...] J06.9 Acute upper respiratory infection, Marcy Mathiasvinnie, [employer]WL[employer]CH unspecified 08/23/2019 W19.xxxD Unspecified fall, subsequent Marcyjulián Sinclair, B[employer] CRAWLER [employer]ORCH encounter 08/23/2019 S01.412D Laceration without foreign body of Marcy Sinclair, B[employer] CRAWL[employer] TORCH left cheek and temporomandibular area, subsequent encounter 08/23/2019 R63.4 Abnormal weight loss Marcyjulián Sinclair, IVETTE 08/23/2019 F32.9 Major depressive disorder, single Marcy Meyvinnie, [employer]RAWL[employer]ORCH episode, unspecified 08/23/2019 G40.909 Epilepsy, unspecified, not Marcy Touchton, [employer]ORCH intractable, without status epile 08/23/2019 I10 Essential (primary) hypertension Marcy Sinclair, B[employer]RAWLER [employer]ORCH 08/23/2019 F41.9 Anxiety disorder, unspecified Marcy Touchton, B[employer] CRAWLER [employer]ORCH 08/23/2019 M62.81 Muscle weakness (generalized) Marcy Sinclair, IVETTE 08/23/2019 Z66 Do not resuscitate Marcy Sinclair NP Plan of Treatment No Information Available Functional Status Description No Information Available Mental Status Description No Information Available Referrals Description No Information Available
--- OUTSIDE RECORDS SUMMARY | 2020-01-29 07:00 | XMS REPORT | Continuity of Care Document ---
:1930 External Reference #:[id number] Author Name Aureliano Valverde M.D.,FACP (transmitted by agent of provider Jillian Magana) Address [address] [place] [address] Problems Active Problems Provider Date Closed supracondylar [...] MSM-Glucosamine 1 cap daily Unknown 250-250mg Capsules [place] 3 1 by mouth once a Unknown [...] Location Provider Dx Diagnosis Office Visit 01/09/2020 [facility] Lito Cueva MD J96.91 Respiratory 9:32a Assoc,pc failure, Hospitalists unspecified with hypoxia I10 Essential (primary) hypertension J45.901 Unspecified asthma with (acute) exacerbation R79.89 Other specified abnormal findings of blood chemistry J90 Pleural effusion, not elsewhere classified Office Visit 01/08/2020 9:32a [facility] Cathy Cueva, N17.9 Acute kidney Assoc,pc MD failure, Hospitalists unspecified J45.901 Unspecified asthma with (acute) exacerbation I10 Essential (primary) hypertension G40.909 Epilepsy, unsp, not intractable, without status epilepticus [facility] 9:31a Asspan santiago M.D.,FACP failure, Hospitalists unspecified J45.901 Unspecified asthma with (acute) exacerbation I10 Essential (primary) hypertension [facility] R06.[facility] Dyspnea, 9:31a pan Red M.D.,FACP unspecified Hospitalists R05 Cough I10 Essential (primary) hypertension Office Visit 12/11/2019 [facility] Sydney Castillo, J96.01 Acute respiratory 8:24a pan Red M.D. failure with Hospitalists hypoxia J98.01 Acute bronchospasm G40.909 Epilepsy, unsp, not intractable, without status epilepticus I10 Essential (primary) hypertension Office Visit 12/10/2019 [facility] Sydney Castillo, J96.01 Acute respiratory 9:24a pan Red M.D. failure with Hospitalists hypoxia J98.01 Acute bronchospasm E87.6 Hypokalemia Office Visit 12/09/2019 [facility] Sydney Castillo, J96.01 Acute respiratory 9:23a pan Red M.D. failure with Hospitalists hypoxia J98.01 Acute bronchospasm Office Visit 10/30/2019 10:00a [facility] Meenu Wright, F32.9 Major depressive D.O. disorder, single episode, unspecified G40.909 Epilepsy, unsp, not intractable, without status epilepticus I10 Essential (primary) hypertension F41.9 Anxiety disorder, unspecified Z66 Do not resuscitate Office Visit 08/23/2019 8:45a [facility] Marcy Sinclair, W19.xxxD Unspecified fall, SENIOR ACCOUNT CLERK subsequent encounter S01.412D Laceration w/o foreign body [...] Wright D.O. 10/30/2019 Z66 Do not resuscitate Meeun Wright D.O. 10/25/2019 J06.9 Acute upper respiratory infection, Marcy Sinclair, SENIOR ACCOUNT CLERK unspecified 08/23/2019 W19.xxxD Unspecified fall, subsequent Marcy Meyvinnie, SENIOR ACCOUNT CLERK encounter 08/23/2019 S01.412D Laceration without foreign body of Macry Sinclair, SENIOR ACCOUNT CLERK left cheek and temporomandibular area, subsequent encounter 08/23/2019 R63.4 Abnormal weight loss Macry Mathiasvinnie, SENIOR ACCOUNT CLERK 08/23/2019 F32.9 Major depressive disorder, single Marcy Sinclair, SENIOR ACCOUNT CLERK episode, unspecified 08/23/2019 G40.909 Epilepsy, unspecified, not Marcy Touchton, SENIOR ACCOUNT CLERK intractable, without status epile 08/23/2019 I10 Essential (primary) hypertension Marcy Touchton, SENIOR ACCOUNT CLERK 08/23/2019 F41.9 Anxiety disorder, unspecified Marcy Touchton, SENIOR ACCOUNT CLERK 08/23/2019 M62.81 Muscle weakness (generalized) Marcy Mathiasvinnie, SENIOR ACCOUNT CLERK 08/23/2019 Z66 Do not resuscitate Marcy Meyvinnie, SENIOR ACCOUNT CLERK Plan of Treatment No Information Available Functional Status Description No Information Available Mental Status Description No Information Available Referrals Description No Information Available
[2020-01-29 07:07] LABS: ALT 19 U/L (7-52); AST 18 U/L (13-39); Albumin 3.5 g/dL (3.2-5.2); Albumin/Globulin Ratio 1.3 (1-3); Alkaline Phosphatase 59 U/L (34-104); Anion Gap 4 mmol/L (2-11); BUN/Creatinine Ratio 31.9 (8-20); Blood Urea Nitrogen 36 mg/dL (6-24); CO2 Carbon Dioxide 29 mmol/L (22-32); Calcium 8.7 mg/dL (8.6-10.3); Chloride 106 mmol/L (101-111); EGFR African American 54.9 (>60); EGFR Non-African American 45.3 (>60); Globulin 2.7 g/dL (2-4); Glucose 106 mg/dL (70-100); Potassium 4.9 mmol/L (3.5-5.0); Sodium 139 mmol/L (135-145); Total Protein 6.2 g/dL (6.4-8.9)
[2020-01-29 07:11] LABS: Influenza A Molecular Negative (Negative); Influenza B Molecular Negative (Negative)
[2020-01-29 07:12] LABS: Troponin I 0.04 ng/mL (<0.03)
--- NOTE | 2020-01-29 07:28 | ED ---
Progress - Progress Note Progress Note: Patient signed out by Dr. Wayne at 07:00 on 01/29/2020 pending medications, labs , chest x-ray, and disposition. Chest x-ray Impression: CHRONIC PLEURAL CHANGES WITH BLUNTING OF COSTOPHRENIC ANGLES. NO DEFINITE ALVEOLAR CONSOLIDATION IS NOTED. ED physician has reviewed this report. Course/Dx - Course Course Of Treatment: Patient received Duoneb and Benadryl in the ED. She was also given Tylenol for a headache. - Diagnoses Provider Diagnoses: Shortness of breath, Wheezing Discharge ED - Sign-Out/Discharge Documenting (check all that apply): Patient Departure, Receiving Sign-Out Receiving patient FROM: Marta Wayne - Pending medications, labs, chest x-ray, and disposition. - Discharge Plan Condition: Stable Disposition: HOME Prescriptions: Albuterol HFA INHALER* [Ventolin HFA Inhaler*] 2 puff INH Q4H PRN 30 Days #1 mdi PRN Reason: Wheezing Patient Education Materials: Shortness of Breath (ED) Referrals: Danielle Stevenson [employer] [Primary Care Provider] - Additional Instructions: You were seen in the emergency department for breath. Your x-ray did not show pneumonia. You can take albuterol as needed every 4 hours for wheezing. If any studies were not completed at the time of discharge you will be called with the relevant results. Please follow up with your primary care doctor in next 2-3 days and return to emergency department for worsening or concerning symptoms. It was a pleasure taking care of you today. - Attestation Statements Document Initiated by Scribe: Yes Documenting Scribe: Tg Robert Provider For Whom Scribe is Documenting (Include Credential): Kayy Cazares MD Scribe Attestation: I, Tg Robert, scribed for Kayy Cazares MD on 01/29/20 at 1025. Status of Scribe Document: Ready
[2020-01-29 10:22] LABS: Troponin I 0.03 ng/mL (<0.03)
[2020-01-29 12:18] VITALS: BP 95/56
== END 2020-01-29 12:43 | disposition home or self-care (01) ==
LOC: ED 06:15
DX: R06.02 Shortness of breath (principal); R50.9 Fever, unspecified; R06.2 Wheezing; R09.02 Hypoxemia; J45.909 Unspecified asthma, uncomplicated; K21.9 Gastro-esophageal reflux disease without esophagitis; Z86.73 Personal history of transient ischemic attack (TIA), and cerebral infarction without residual deficits; Z79.82 Long term (current) use of aspirin; Z79.899 Other long term (current) drug therapy; Z96.651 Presence of right artificial knee joint; Z96.641 Presence of right artificial hip joint; R56.9 Unspecified convulsions; J98.01 Acute bronchospasm; R05 Cough; J96.91 Respiratory failure, unspecified with hypoxia
CPT/HCPCS: 36415; 71045; 80053; 83605; 83880; 84484; 85025; 85610; 87040; 93005; 99284; A9270-GY; J1200

== ENCOUNTER 2020-01-29 22:00 | Emergency (ER) | payer MEDICARE ==
[2020-01-29] MEDS ORDERED: Albuterol/Ipratropium NEB.SOL* Albuterol 2.5 MG/Ipratropium 0.5 MG 3 ML INH ONE (22:28)
--- NOTE | 2020-01-29 22:46 | ED ---
Shortness of Breath - HPI Summary HPI Summary: Patient is an 89 year-old female arriving via ambulance to [facility] from [facility] with a chief complaint of discomfort with breathing and cough tonight. She reports her breathing sounds like Im snoring. Patient was here earlier this morning for similar symptoms, with discharge back to the nursing facility with pneumonia. Tonight, patient was given a neb treatment at [facility] and then was satting in the 90s% on 2L NC. Patient now has some shortness of breath and cough, similar to presentation this morning. She denies chest pain. She is not in any pain now. Her daughter wanted her to come back to the ED. EMS notes bilateral rhonchi. No recent travel. No known COVID-19 exposure. Past medical history includes acute hypoxemia respiratory failure, pneumonia, asthma, GERD, arthritis, CVA, seizures. Nonsmoker, no EtOH, no substance use. Medications reviewed. Allergies noted. - History of Current Complaint Chief Complaint: EDShortnessOfBreath Time Seen by Provider: 01/29/20 22:02 Hx Obtained From: Patient, EMS Onset/Duration: Lasting Hours, Still Present Dyspnea At: Rest Aggravating Factors: Nothing Alleviating Factors: Nothing Associated Signs & Symptoms: Cough (Nonproductive), Wheezing - Allergy/Home Medications Allergies/Adverse Reactions: Allergies Allergy/AdvReac Type Severity Reaction Status Date / Time lamotrigine Allergy Severe See Comment Verified 01/29/20 22:04 cefuroxime Allergy Unknown Verified 01/29/20 22:04 Reaction Details Home Medications: Home Medications Acetaminophen TAB* [Tylenol TAB*] 650 mg PO Q4H PRN 05/25/18 [History Confirmed 01/29/20] Calcium Carbonate TAB* 500 mg PO QPM 05/25/18 [History Confirmed 01/29/20] Magnesium Oxide TAB* [MagOx 400 TAB*] 400 mg PO QPM 05/25/18 [History Confirmed 01/29/20] Metoprolol Tartrate TAB* [Lopressor TAB*] 12.5 mg PO Q12HR tab 05/27/18 [Rx Confirmed 01/29/20] Sertraline* [Zoloft*] 50 mg PO DAILY 01/30/19 [History Confirmed 01/29/20] Aspirin [Adult Aspirin Regimen] 81 mg PO DAILY 12/09/19 [History Confirmed 01/28] Umeclidin/Vilant 62.5 MDI(NF) [ANORO 62.5/25 Ellipta DEVICE (NF)] 1 puff INH DAILY 12/09/19 [History Confirmed 01/29/20] levETIRAcetam [Levetiracetam] 250 mg PO DAILY 12/09/19 [History Confirmed ] Potassium Chloride [Klor-Con M20] 20 meq PO DAILY 01/06/20 [History Confirmed ] levETIRAcetam [Levetiracetam] 500 mg PO BEDTIME 01/06/20 [History Confirmed ] Ipratropium 0.5MG/2.5ML NEB* [Atrovent 0.5 MG NEB.ALLISON*] 0.5 mg INH Q8H #0 [Rx Confirmed 01/29/20] Albuterol HFA INHALER* [Ventolin HFA Inhaler*] 2 puff INH Q4H PRN 30 Days #1 mdi 01/29/20 [Rx] predniSONE [Prednisone 20 MG TAB] 40 mg PO DAILY #10 tablet 01/30/20 [Rx] PMH/Surg Hx/FS Hx/Imm Hx Endocrine/Hematology History: Denies: Hx Diabetes Cardiovascular History: Denies: Hx Hypertension, Hx Pacemaker/ICD Respiratory History: Reports: Hx Asthma, Other Respiratory Problems/Disorders - acute hypoxemia respiratory failure Denies: Hx Chronic Obstructive Pulmonary Disease (COPD) GI History: Reports: Hx Gastroesophageal Reflux Disease History: Denies: Hx Benign Prostatic Hyperplasia, Hx Chronic Renal Failure, Hx Dialysis, Hx Renal Disease Musculoskeletal History: Reports: Hx Arthritis, Hx Orthopedic Injury - R knee, Other Musculoskeletal History - R TKR Sensory History: Denies: Hx Contacts or Glasses, Hx Hearing Aid Opthamlomology History: Denies: Hx Contacts or Glasses Neurological History: Reports: Hx CVA Psychiatric History: Denies: Hx Attention Deficit Hyperactivity Disorder, Hx Panic Disorder - Surgical History Surgical History: Yes Surgery Procedure, Year, and Place: TOTAL RT KNEE, 2002, [facility]. TOTAL RT HIP, [place], [place], unsure of year. RT FEMUR ORIF APRIL 2018. HYSTERECTOMY Hx Anesthesia Reactions: No Infectious Disease History: No Infectious Disease History: Denies: Traveled Outside the [place] in Last 30 Days - Family History Known Family History: Positive: Cardiac Disease - [place], Other - breast cancer - Social History Alcohol Use: None Hx Substance Use: No Substance Use Type: Reports: None Hx Tobacco Use: No Smoking Status (MU): Never Smoked Tobacco - Additional Comments History Additional Comments: acute hypoxemia respiratory failure, pneumonia, asthma, GERD, arthritis, CVA, seizures Review of Systems - ROS Summary Review of Systems Summary: Home Medications Medication Instructions Recorded Confirmed Type Acetaminophen TAB* [Tylenol TAB*] 650 mg PO Q4H PRN 05/25/18 01/29/20 History Calcium Carbonate TAB* 500 mg PO QPM 05/25/18 01/29/20 History Magnesium Oxide TAB* [MagOx 400 400 mg PO QPM 05/25/18 01/29/20 History TAB*] Metoprolol Tartrate TAB* 12.5 mg PO Q12HR tab 05/27/18 01/29/20 Rx [Lopressor TAB*] Sertraline* [Zoloft*] 50 mg PO DAILY 01/30/19 01/29/20 History Aspirin [Adult Aspirin Regimen] 81 mg PO DAILY 12/09/19 01/29/20 History Umeclidin/Vilant 62.5 MDI(NF) 1 puff INH DAILY 12/09/19 01/29/20 History [ANORO 62.5/25 Ellipta DEVICE (NF)] levETIRAcetam [Levetiracetam] 250 mg PO DAILY 12/09/19 01/29/20 History Potassium Chloride [Klor-Con M20] 20 meq PO DAILY 01/06/20 01/29/20 History levETIRAcetam [Levetiracetam] 500 mg PO BEDTIME 01/06/20 01/29/20 History Ipratropium 0.5MG/2.5ML NEB* 0.5 mg INH Q8H #0 01/09/20 01/29/20 Rx [Atrovent 0.5 MG NEB.ALLISON*] Albuterol HFA INHALER* [Ventolin 2 puff INH Q4H PRN 30 Days #1 mdi 01/29/20 Rx HFA Inhaler*] Negative: Chest Pain Positive: Shortness Of Breath, Cough, Other - wheezing All Other Systems Reviewed And Are Negative: Yes Physical Exam - Summary Physical Exam Summary: General: Well-developed, Well-nourished female. No acute distress. HEENT: Normocephalic, Atraumatic. Eyes: Conjuctiva normal, PERRL. Oropharynx: Clear, mucous membranes moist, (-) exudates. Neck: Soft, FROM, (-) lymphadenopathy, (-) thyromegaly, (-) JVD. Cardiovascular: Normal sinus rhythm, (-) murmur. Lungs: Decreased breath sounds bilaterally, Tight wheezing throughout, Mild bibasilar crackles, (-) rales, (-) rhonchi. Abdomen: Soft, non-tender, non-distended, (-) organomegaly, normal bowel sounds. Back: (-) CVA tenderness Extremities: No edema. Skin: Warm, dry, (-) rash. Neuro: Alert and oriented x3, moves all extremities equally. No ataxia. No gait disturbance. No sensory deficit. Normal strength, normal sensation. Psychiatric: Mood normal, affect normal. Triage Information Reviewed: Yes Vital Signs On Initial Exam: Initial Vitals Temp Pulse Resp BP Pulse Ox 99.1 F 78 15 138/85 100 01/29/20 22:01 01/29/20 22:01 01/29/20 22:01 01/29/20 22:01 01/29/20 22:01 Vital Signs Reviewed: Yes Procedures - Sedation Patient Received Moderate/Deep Sedation with Procedure: No Diagnostics - Vital Signs Vital Signs Temp Pulse Resp BP Pulse Ox 01/29/20 22:44 75 16 93 01/29/20 22:07 80 100 01/29/20 22:06 78 138/85 100 01/29/20 22:01 99.1 F 78 15 138/85 100 - Laboratory Result Diagrams: 01/29/20 22:49 01/29/20 22:49 Lab Statement: Any lab studies that have been ordered have been reviewed, and results considered in the medical decision making process. - CT Chest/Thorax CTA CT Interpretation Completed By: Radiologist Summary of CT Findings: Impression: 1. No acute findings. 2. Prior CT study of the chest abdomen pelvis is not available for review from 01/29/2019. This report was reviewed by Dr. Wayne. - EKG 2259 Cardiac Rate: NL - 76 BPM EKG Rhythm: Sinus Rhythm Summary of EKG Findings: EKG at 2259 reveals normal sinus rhythm with rate of 76 BPM, no acute changes, no ischemic changes. This EKG was reviewed and interpreted by Dr. Wayne. Re-Evaluation - Re-Evaluation First Eval Re-Evaluation Time: 02:20 Change: Improved Comment: I discussed all results and patient's breathing has improved. Discussed all symptoms that warrant return to the ED. Course/Dx - Course Course Of Treatment: 89-year-old female presents by ambulance from long-term. Her daughter wanted her since because she was having trouble breathing. Patient recently discharged from this hospital with pneumonia. Was on antibiotics and steroids. Patient also seen earlier this morning in this ER. Had workup done was treated with breathing treatments and discharged back to long-term on albuterol inhaler. Upon arrival patient is in no significant respiratory distress. She did have a DuoNeb en route. Her pulse ox is 90-93% on room air. Patient does have tight wheezing throughout. He is treated with steroids and DuoNeb's. Has significant improvement in her breathing. CT chest negative. When patient falls asleep she becomes hypoxic to 88. 2 L nasal cannula was started. Patient discharged back to long-term. Started on 40 mg of prednisone daily for 5 days. Continue albuterol inhaler as directed. Follow up with PCP. Follow up sooner for any worsening symptoms. Patient received fluids and two Duoneb treatments in the ED. She is sent home with Prednisone prescription. - Diagnoses Provider Diagnoses: Bronchitis with bronchospasm Discharge ED - Sign-Out/Discharge Documenting (check all that apply): Patient Departure - Patient will be discharged home. - Discharge Plan Condition: Stable Disposition: HOME Prescriptions: predniSONE [Prednisone 20 MG TAB] 40 mg PO DAILY #10 tablet Patient Education Materials: Acute Bronchitis (ED), Bronchospasm (ED) Referrals: [facility] [Outside] - 3 Days Additional Instructions: Please take medication as prescribed. Follow up with your primary care provider in 2-3 days. Return to the emergency department with any new or worsening symptoms. - Billing Disposition and Condition Condition: STABLE Disposition: Home - Attestation Statements Document Initiated by Scribe: Yes Documenting Scribe: Nathalie Myers Provider For Whom Scribe is Documenting (Include Credential): Marta Wayne MD Scribe Attestation: Nathalie Roberto, scribed for Marta Wayne MD on 03/29/20 at 0228. Scribe Documentation Reviewed: Yes Provider Attestation: The documentation as recorded by the scribe, Nathalie Myers accurately reflects the service I personally performed and the decisions made by me, Marta Wayne MD Status of Scribe Document: Viewed
[2020-01-29 23:05] LABS: ABS Eosinophils 0.9 10^3/ul (0-0.6); ABS Lymphocytes 0.8 10^3/ul (1.0-4.8); ABS Monocytes 0.5 10^3/ul (0-0.8); ABS Neutrophils 5.1 10^3/ul (1.5-7.7); Hematocrit 33 % (35-47); Hemoglobin 10.7 g/dL (12.0-16.0); Lymphocyte % 10.9 %; Mean Corpuscular HGB Conc 33 g/dL (31-36); Mean Corpuscular Hemoglobin 30 pg (27-31); Mean Corpuscular Volume 90 fL (80-97); Mean Platelet Volume 8.4 fL (7.4-10.4); Platelet Count 206 10^3/uL (150-450); Red Cell Distribution Width 14 % (10-15); White Blood Count 7.2 10^3/uL (3.5-10.8)
[2020-01-29 23:09] LABS: INR 1.04 (0.82-1.09)
[2020-01-29 23:21] LABS: ALT 18 U/L (7-52); AST 17 U/L (13-39); Albumin 3.4 g/dL (3.2-5.2); Albumin/Globulin Ratio 1.4 (1-3); Alkaline Phosphatase 55 U/L (34-104); Anion Gap 5 mmol/L (2-11); BUN/Creatinine Ratio 31.6 (8-20); Blood Urea Nitrogen 31 mg/dL (6-24); CO2 Carbon Dioxide 29 mmol/L (22-32); Calcium 8.7 mg/dL (8.6-10.3); Chloride 106 mmol/L (101-111); EGFR African American 64.7 (>60); EGFR Non-African American 53.4 (>60); Globulin 2.5 g/dL (2-4); Glucose 113 mg/dL (70-100); Potassium 4.3 mmol/L (3.5-5.0); Sodium 140 mmol/L (135-145); Total Protein 5.9 g/dL (6.4-8.9)
[2020-01-29 23:29] LABS: Troponin I 0.03 ng/mL (<0.03)
[2020-01-30] MEDS ORDERED: Iodixanol* (CONTRAST) 320 MG/ML 100 ML SDV IV ONE (00:17)
[2020-01-30] MEDS ORDERED: NS 0.9% 1000 ML** 1,000 ML IV ONE (00:25)
[2020-01-30] MEDS ORDERED: Albuterol/Ipratropium NEB.SOL* Albuterol 2.5 MG/Ipratropium 0.5 MG 3 ML INH ONE (00:39)
[2020-01-30] MEDS ORDERED: methylPREDNISolone 125 MG* 2 ML VIAL IV ONE (02:41)
[2020-01-30 03:04] VITALS: BP 105/64
== END 2020-01-30 04:25 | disposition home or self-care (01) ==
LOC: ED 22:00
DX: J98.01 Acute bronchospasm (principal); R05 Cough; J96.91 Respiratory failure, unspecified with hypoxia; J45.909 Unspecified asthma, uncomplicated; K21.9 Gastro-esophageal reflux disease without esophagitis; Z86.73 Personal history of transient ischemic attack (TIA), and cerebral infarction without residual deficits; Z79.899 Other long term (current) drug therapy; Z96.651 Presence of right artificial knee joint; Z96.641 Presence of right artificial hip joint; Z79.82 Long term (current) use of aspirin
CPT/HCPCS: 36415; 71275; 80053; 82803; 83605; 84484; 85025; 85610; 93005; 96361; 96374; 99285; A9270-GY; J2930; Q9967

== ENCOUNTER 2020-02-27 09:42 | Emergency (ER) | payer MEDICARE ==
[2020-02-27] MEDS ORDERED: Albuterol/Ipratropium NEB.SOL* (2.5/0.5 MG) 3 ML NEB.SOLN INH ONE ×2 (09:49→11:03)
[2020-02-27] MEDS ORDERED: methylPREDNISolone 125 MG* 2 ML VIAL IV ONE (09:49)
--- NOTE | 2020-02-27 09:50 | ED ---
Shortness of Breath - HPI Summary HPI Summary: 89 y/o female presented to [facility] for SOB increasing over the past month. Pt denies fever N/V, CP, and cough. Pt was given 2 doses from a nebulizer prior to physician assessment. She lives at [facility] where there are no known cases of COVID-19. Hx asthma noted. Cardiac hx and hx of blood clots denied. - History of Current Complaint Hx Obtained From: Patient Onset/Duration: Lasting Weeks, Still Present Dyspnea At: Rest Alleviating Factors: Other - 2 doses from nebulizer Associated Signs & Symptoms: Negative - Allergy/Home Medications Allergies/Adverse Reactions: Allergies Allergy/AdvReac Type Severity Reaction Status Date / Time lamotrigine Allergy Severe See Comment Verified 02/27/20 12:49 cefuroxime Allergy Unknown Verified 02/27/20 12:49 Reaction Details Home Medications: Home Medications Acetaminophen TAB* [Tylenol TAB*] 650 mg PO Q4H PRN 05/25/18 [History Confirmed 01/29/20] Calcium Carbonate TAB* 500 mg PO QPM 05/25/18 [History Confirmed 01/29/20] Magnesium Oxide TAB* [MagOx 400 TAB*] 400 mg PO QPM 05/25/18 [History Confirmed 01/29/20] Metoprolol Tartrate TAB* [Lopressor TAB*] 12.5 mg PO Q12HR tab 05/27/18 [Rx Confirmed 01/29/20] Sertraline* [Zoloft*] 50 mg PO DAILY 01/30/19 [History Confirmed 01/29/20] Aspirin [Adult Aspirin Regimen] 81 mg PO DAILY 12/09/19 [History Confirmed 01/28] Umeclidin/Vilant 62.5 MDI(NF) [ANORO 62.5/25 Ellipta DEVICE (NF)] 1 puff INH DAILY 12/09/19 [History Confirmed 01/29/20] levETIRAcetam [Levetiracetam] 250 mg PO DAILY 12/09/19 [History Confirmed ] Potassium Chloride [Klor-Con M20] 20 meq PO DAILY 01/06/20 [History Confirmed ] levETIRAcetam [Levetiracetam] 500 mg PO BEDTIME 01/06/20 [History Confirmed ] Ipratropium 0.5MG/2.5ML NEB* [Atrovent 0.5 MG NEB.ALLISON*] 0.5 mg INH Q8H #0 [Rx Confirmed 01/29/20] Albuterol HFA INHALER* [Ventolin HFA Inhaler*] 2 puff INH Q4H PRN 30 Days #1 mdi 01/29/20 [Rx] predniSONE [Prednisone 20 MG TAB] 40 mg PO DAILY #10 tablet 01/30/20 [Rx] Benzonatate CAP* [Tessalon 100 MG CAP*] 100 mg PO TID PRN #15 cap 02/27/20 [Rx] predniSONE 20 mg TAB [Deltasone 20 MG TAB*] 40 mg PO DAILY #8 tab 02/27/20 [Rx] PMH/Surg Hx/FS Hx/Imm Hx Endocrine/Hematology History: Denies: Hx Diabetes Cardiovascular History: Denies: Hx Hypertension, Hx Pacemaker/ICD Respiratory History: Reports: Hx Asthma, Other Respiratory Problems/Disorders - acute hypoxemia respiratory failure Denies: Hx Chronic Obstructive Pulmonary Disease (COPD) GI History: Reports: Hx Gastroesophageal Reflux Disease History: Denies: Hx Benign Prostatic Hyperplasia, Hx Chronic Renal Failure, Hx Dialysis, Hx Renal Disease Musculoskeletal History: Reports: Hx Arthritis, Hx Orthopedic Injury - R knee, Other Musculoskeletal History - R TKR Sensory History: Denies: Hx Contacts or Glasses, Hx Hearing Aid Opthamlomology History: Denies: Hx Contacts or Glasses Neurological History: Reports: Hx CVA Psychiatric History: Denies: Hx Attention Deficit Hyperactivity Disorder, Hx Panic Disorder - Surgical History Surgery Procedure, Year, and Place: TOTAL RT KNEE, 2002, [facility]. TOTAL RT HIP, [place], [place], unsure of year. RT FEMUR ORIF APRIL 2018. HYSTERECTOMY Hx Anesthesia Reactions: No Infectious Disease History: No Infectious Disease History: Denies: Traveled Outside the [place] in Last 30 Days - Family History Known Family History: Positive: Cardiac Disease - [place], Other - breast cancer - Social History Alcohol Use: None Hx Substance Use: No Substance Use Type: Reports: None Hx Tobacco Use: No Smoking Status (MU): Never Smoked Tobacco Review of Systems Negative: Chest Pain Positive: Shortness Of Breath. Negative: Cough Negative: Vomiting, Nausea All Other Systems Reviewed And Are Negative: Yes Physical Exam - Summary Physical Exam Summary: Constitutional: Well-developed, Well-nourished, Alert. (-) Distressed Skin: Warm, Dry HENT: Normocephalic; Atraumatic Eyes: Conjunctiva normal Neck: Musculoskeletal ROM normal neck. (-) JVD, (-) Stridor, (-) Tracheal deviation Cardio: Rhythm regular, rate normal, Heart sounds normal; Intact distal pulses; The pedal pulses are 2+ and symmetric. Radial pulses are 2+ and symmetric. (-) Murmur Pulmonary/Chest wall: Mildly increased work of breathing. No significant respiratory distress, (+) Bilat wheezing, (-) Rales Abd: Soft, (-) tenderness, (-) Distension, (-) Guarding, (-) Rebound Musculoskeletal: (-) Edema Lymph: (-) Cervical adenopathy Neuro: Alert, Oriented x3 Psych: Mood and affect Normal Triage Information Reviewed: Yes Vital Signs On Initial Exam: Initial Vitals Temp Pulse Resp BP Pulse Ox 97.8 F 96 18 138/77 100 02/27/20 09:44 02/27/20 09:44 02/27/20 09:44 02/27/20 09:44 02/27/20 09:44 Vital Signs Reviewed: Yes Procedures - Sedation Patient Received Moderate/Deep Sedation with Procedure: No Diagnostics - Vital Signs Vital Signs Temp Pulse Resp BP Pulse Ox 02/27/20 09:44 97.8 F 96 18 138/77 100 - Laboratory Result Diagrams: 02/27/20 10:10 02/27/20 10:10 Lab Statement: Any lab studies that have been ordered have been reviewed, and results considered in the medical decision making process. - Radiology Xray chest Radiology Interpretation Completed By: Radiologist Summary of Radiographic Findings: IMPRESSION: SMALL LEFT PLEURAL EFFUSION VERSUS CHRONIC PLEURAL THICKENING. This report was reviewed by Dr. Dan. Course/Dx - Course Course Of Treatment: 89 y/o female presented to [facility] for SOB increasing over the past month. Pt denies fever N/V, CP, and cough. Pt was given 2 doses from a nebulizer prior to physician assessment. She lives at [facility] where there are no known cases of COVID-19. Hx asthma noted. Cardiac hx and hx of blood clots denied. Exam showed Bilat wheezing. Mildly increased work of breathing. Labs showed Hgb 11.1, Hct 34, BUN 30, creatinine 1.20, BUN/creatinine ratio 25.0 , Glc 108, Ca 8.5, CRP 38.30, and total protein 5.8. X-ray chest showed SMALL LEFT PLEURAL EFFUSION VERSUS CHRONIC PLEURAL THICKENING. Pt was given 6ml INH Albuterol, 100mg PO Tessalon, and 125mg IV Solu-Medrol. Pt was diagnosed with asthma exacerbation; prescribed PO prednisone and PO Tessalon; and discharged to home. - Diagnoses Provider Diagnoses: Asthma exacerbation - Critical Care Time Critical Care Statement: Critical care time is provided exclusive of any time spent performing procedures. Discharge ED - Sign-Out/Discharge Documenting (check all that apply): Patient Departure - dc - Discharge Plan Condition: Stable Disposition: HOME Prescriptions: Benzonatate CAP* [Tessalon 100 MG CAP*] 100 mg PO TID PRN #15 cap PRN Reason: Cough predniSONE 20 mg TAB [Deltasone 20 MG TAB*] 40 mg PO DAILY #8 tab Patient Education Materials: Asthma (ED) Referrals: [facility] [Outside] Additional Instructions: Follow up with a primary care provider in 1-3 days. If you experience new or worsening symptoms please return to the ER. - Billing Disposition and Condition Condition: STABLE Disposition: Home - Attestation Statements Document Initiated by Scribe: Yes Documenting Scribe: Moses Mooney Provider For Whom Jese is Documenting (Include Credential): Carl Dan Scribrohith Attestation: Moses Roberto, scribed for Carl Dan on 02/27/20 at 1547. Scribe Documentation Reviewed: Yes Provider Attestation: The documentation as recorded by the Moses spain accurately reflects the service I personally performed and the decisions made by Carl loaiza Status of Scribe Document: Viewed
[2020-02-27 10:36] LABS: Hematocrit 34 % (35-47); Hemoglobin 11.1 g/dL (12.0-16.0); Mean Corpuscular HGB Conc 33 g/dL (31-36); Mean Corpuscular Hemoglobin 30 pg (27-31); Mean Corpuscular Volume 90 fL (80-97); Mean Platelet Volume 8.6 fL (7.4-10.4); Platelet Count 159 10^3/uL (150-450); Red Blood Count 3.75 10^6 /uL (3.70-4.87); Red Cell Distribution Width 15 % (10-15); White Blood Count 7.1 10^3/uL (3.5-10.8)
[2020-02-27] MEDS ORDERED: Benzonatate CAP* 100 MG PO ONE (10:50)
[2020-02-27 10:54] LABS: ABS Eosinophils 0.6 10^3/ul (0-0.6); ABS Lymphocytes 0.8 10^3/ul (1.0-4.8); ABS Monocytes 0.4 10^3/ul (0-0.8); ABS Neutrophils 5.3 10^3/ul (1.5-7.7); Albumin 3.5 g/dL (3.2-5.2); Albumin/Globulin Ratio 1.5 (1-3); C Reactive Protein 38.3 mg/L (<8.01); Calcium 8.5 mg/dL (8.6-10.3); EGFR African American 51.2 (>60); EGFR Non-African American 42.3 (>60); Eosinophil % 8.8 %; Globulin 2.3 g/dL (2-4); Lymphocyte % 10.9 %; Potassium 4.6 mmol/L (3.5-5.0); Total Bilirubin 0.6 mg/dL (0.2-1.0); Total Protein 5.8 g/dL (6.4-8.9)
[2020-02-27 15:11] VITALS: BP 112/66
== END 2020-02-27 14:30 | disposition home or self-care (01) ==
LOC: ED 09:42
DX: J45.901 Unspecified asthma with (acute) exacerbation (principal); R06.02 Shortness of breath; K21.9 Gastro-esophageal reflux disease without esophagitis; J90 Pleural effusion, not elsewhere classified; Z86.73 Personal history of transient ischemic attack (TIA), and cerebral infarction without residual deficits; Z96.651 Presence of right artificial knee joint; Z96.641 Presence of right artificial hip joint; Z79.52 Long term (current) use of systemic steroids; Z79.899 Other long term (current) drug therapy; Z79.82 Long term (current) use of aspirin
CPT/HCPCS: 36415; 71045; 80053; 85025; 86140; 96374; 99284; A9270-GY; J2930; J7620